=== PATIENT | female | born 1955 | race Caucasian/White ===

== ENCOUNTER → 2016-08-30 | Outpatient (CLI) | payer MEDICARE, OTHER ==
[2016-08-30 11:50] LABS: Basophils % (A) 1 %; CH 32.6; CHCM 32.1; Eosinophils # (A) 0.1 k/uL (0-0.7); Eosinophils % (A) 1 %; HDW 2.05; HGB 14.9 gm/dL (11.4-16.0); Luc # (Auto) 0.16; Luc % (Auto) 4; Lymphocytes # (A) 0.3 k/uL (1.0-4.8); Lymphocytes % (A) 7 %; MCH 32.3 pg (25.0-35.0); MCHC 31.6 g/dL (31.0-37.0); MCV 102.2 fL (80.0-100.0); Macrocytosis Slight; Mean Platelet Volume 7.7; Monocytes # (A) 0.5 k/uL (0-1.0); Monocytes % (A) 10 %; Neutrophils # (A) 3.4 k/uL (1.3-7.7); Neutrophils % (A) 77 %; WBC 4.4 k/uL (3.8-10.6); WBC (Perox) 4.45
[2016-08-30 12:27] LABS: ALT 41 U/L (9-52); AST 29 U/L (14-36); Alkaline Phosphatase 107 U/L (38-126); Anion Gap 9 mmol/L; Blood Urea Nitrogen 36 mg/dL (7-17); Calcium 9.5 mg/dL (8.4-10.2); Carbon Dioxide 31 mmol/L (22-30); Chloride 99 mmol/L (98-107); Glucose 91 mg/dL (74-99); Non-African American GFR(MDRD) >60 (>60 ml/min/1.73 sqM); Potassium 5.1 mmol/L (3.5-5.1); Sodium 139 mmol/L (137-145); Total Bilirubin 0.5 mg/dL (0.2-1.3)
[2016-08-30 13:11] LABS: Vitamin B12 729 pg/mL (239-931)
[2016-09-07 09:04] LABS: Mis test requested (Blood) Stratify JVC Ab
== END | disposition home or self-care (01) ==
LOC: LABWHC1 11:08
PROVIDERS: ATTEND Nurse Practitioner Acute Care
DX: E55.9 Vitamin D deficiency, unspecified (principal); G35 Multiple sclerosis
CPT/HCPCS: 36415; 80053; 82306; 82607; 84439; 84443; 84481; 85025

== ENCOUNTER → 2016-11-03 | Outpatient (CLI) | payer MEDICARE, OTHER ==
[~2016-11-03] MED LIST: DENOSUMAB 60 MG/ML 1 ML SYRINGE SQ ONE
[2016-11-03 14:18] VITALS: BP 117/75; PULSE 79; RESP 16; TEMP 98.4
== END ==
LOC: PROCWHC3 13:56
PROVIDERS: ATTEND Family Medicine
DX: M81.0 Age-related osteoporosis without current pathological fracture (principal)
CPT/HCPCS: 96372; J0897

== ENCOUNTER → 2017-01-06 | Outpatient (CLI) | payer MEDICARE, OTHER ==
[2017-01-06 10:08] LABS: Basophils % (A) 1 %; CH 31.6; Eosinophils # (A) 0.1 k/uL (0-0.7); Eosinophils % (A) 3 %; HCT 47.7 % (34.0-46.0); HDW 2.22; HGB 14.7 gm/dL (11.4-16.0); Hypochromasia Slight; Luc # (Auto) 0.08; Luc % (Auto) 2; Lymphocytes # (A) 0.6 k/uL (1.0-4.8); Lymphocytes % (A) 13 %; MCH 31.7 pg (25.0-35.0); MCHC 30.8 g/dL (31.0-37.0); MCV 102.8 fL (80.0-100.0); Macrocytosis Slight; Mean Platelet Volume 7.4; Monocytes # (A) 0.4 k/uL (0-1.0); Monocytes % (A) 9 %; Neutrophils # (A) 3.1 k/uL (1.3-7.7); Neutrophils % (A) 72 %; RBC 4.64 m/uL (3.80-5.40); RDW 13.8 % (11.5-15.5); WBC 4.2 k/uL (3.8-10.6); WBC (Perox) 4.14
[2017-01-06 10:15] LABS: ALT 34 U/L (9-52); AST 31 U/L (14-36); Alkaline Phosphatase 85 U/L (38-126); Anion Gap 8 mmol/L; Blood Urea Nitrogen 26 mg/dL (7-17); C Reactive Protein <5.0 mg/L (<10.0); Calcium 8.9 mg/dL (8.4-10.2); Carbon Dioxide 32 mmol/L (22-30); Chloride 100 mmol/L (98-107); Glucose 100 mg/dL (74-99); Non-African American GFR(MDRD) >60 (>60 ml/min/1.73 sqM); Potassium 5.1 mmol/L (3.5-5.1); Sodium 140 mmol/L (137-145); Total Bilirubin 0.4 mg/dL (0.2-1.3); Total Protein 6.7 g/dL (6.3-8.2)
[2017-01-06 13:32] LABS: Erythrocyte Sedimentation Rate 2 mm/hr (0-20)
[2017-01-06 16:46] LABS: ANA w/Reflex to Titer NEGATIVE (NEGATIVE)
== END | disposition home or self-care (01) ==
LOC: LABWHC1 09:21
PROVIDERS: ATTEND Nurse Practitioner Acute Care
DX: E55.9 Vitamin D deficiency, unspecified (principal); R41.3 Other amnesia; Z51.81 Encounter for therapeutic drug level monitoring
CPT/HCPCS: 36415; 80053; 82306; 82607; 84439; 84443; 84481; 85025; 85652; 86038; 86140

== ENCOUNTER → 2017-01-26 | Outpatient (CLI) | payer MEDICARE, OTHER ==
--- NOTE | 2017-01-26 09:04 | US ---
EXAMINATION TYPE: US abdomen complete DATE OF EXAM: 01/26/2017 COMPARISON: CT abdomen pelvis dated 12/11/2014 CLINICAL HISTORY: R10.13 Epigastric pain. Patient has MS and dementia, currently weighs 75lbs EXAM MEASUREMENTS: Liver Length: 13.2 cm Gallbladder Wall: 0.2 cm CBD: 1.0 cm Spleen: 6.7 cm Right Kidney: 9.1 x 3.9 x 2.9 cm Left Kidney: 8.4 x 4.3 x 5.4 cm Pancreas: wnl Liver: wnl Gallbladder: largest length was 11.6cm, possible hydropic with no other abnormalities noted Evidence for sonographic Casillas's sign: no CBD: dilated at 1.0cm with no visible obstruction seen Spleen: wnl Right Kidney: wnl Left Kidney: wnl Upper IVC: wnl Abd Aorta: wnl The liver is homogenous. The intrahepatic portion of the IVC and proximal abdominal aorta are within normal limits. There is no evidence of cholelithiasis. Common bile duct is unremarkable. The visu alized portions of the pancreas are homogenous. The spleen is unremarkable. Kidneys are symmetric a nd free of hydronephrosis. No renal lesions are seen. IMPRESSION: Hydropic gallbladder measuring 11.6 cm in length with enlargement of the common bile duct up to 1.0 cm. Although there is no pericholecystic fluid, gallbladder wall thickening, or cholelithi asis findings remain concerning for acalculous cholecystitis. HIDA scan could be performed if clinica l evaluation and serum laboratory values are equivocal. A [place] message has been communicated to Em Morales MD via the [facility] Critical Result system on 01/26/2017 9:00 AM, Message ID [id number].
== END | disposition home or self-care (01) ==
LOC: RADUSWWP 07:17
PROVIDERS: ATTEND Internal Medicine Gastroenterology
DX: K83.8 Other specified diseases of biliary tract (principal); K82.1 Hydrops of gallbladder
CPT/HCPCS: 76700

== ENCOUNTER → 2017-01-31 | Outpatient (CLI) | payer MEDICARE, OTHER ==
--- NOTE | 2017-01-31 12:00 | XR ---
EXAMINATION TYPE: XR Hip Complete LT DATE OF EXAM: 01/31/2017 COMPARISON: NONE HISTORY: Pain TECHNIQUE: 2 views submitted FINDINGS: There is no evidence of erosive change or acute fracture. Mild concentric narrowing of the joint space. Nonspherical morphology of the head of the femur. Be as sociated with femoral acetabular impingement. Sclerotic changes involving the proximal diaphysis can be associated with previous bone infarct. IMPRESSION: 1. Mild arthropathy correlate for femoral acetabular impingement.
--- NOTE | 2017-01-31 12:02 | XR ---
EXAM TYPE: LUMBAR SPINE X RAY SERIES COMPARISON: NONE HISTORY: Pain TECHNIQUE: 3 views are submitted. FINDINGS: Scoliotic curvature is seen with severe degenerative disc disease L3-4, L4-5 and L5-S1. Facet arthrop athy noted. Foraminal encroachment suspected. The pedicles are intact. The transverse processes are intact. There is no spondylolysis or spondylolisthesis. IMPRESSION: 1. Scoliosis with multilevel severe degenerative disc disease. Correlate with MRI as clinically warra nted.
== END | disposition home or self-care (01) ==
LOC: RADXRMAIN 11:39
PROVIDERS: ATTEND Family Medicine
DX: M51.36 Other intervertebral disc degeneration, lumbar region (principal); M41.9 Scoliosis, unspecified; M12.88 Other specific arthropathies, not elsewhere classified, other specified site; M25.552 Pain in left hip
CPT/HCPCS: 72100; 73502

== ENCOUNTER → 2017-04-04 | Outpatient (CLI) | payer MEDICARE, OTHER ==
[2017-04-04 13:23] LABS: Basophils % (A) 1 %; Eosinophils % (A) 1 %; HCT 44.3 % (34.0-46.0); HGB 13.9 gm/dL (11.4-16.0); Lymphocytes # (A) 0.3 k/uL (1.0-4.8); Lymphocytes % (A) 7 %; MCH 31.5 pg (25.0-35.0); MCHC 31.4 g/dL (31.0-37.0); MCV 100.1 fL (80.0-100.0); Mean Platelet Volume 7.4; Monocytes # (A) 0.4 k/uL (0-1.0); Monocytes % (A) 8 %; Neutrophils # (A) 3.5 k/uL (1.3-7.7); Neutrophils % (A) 81 %; Platelet Count 243 k/uL (150-450); RBC 4.42 m/uL (3.80-5.40); RDW 13.8 % (11.5-15.5); WBC 4.3 k/uL (3.8-10.6)
[2017-04-04 13:53] LABS: ALT 35 U/L (9-52); AST 23 U/L (14-36); Albumin 4.1 g/dL (3.5-5.0); Alkaline Phosphatase 56 U/L (38-126); Anion Gap 8 mmol/L; Blood Urea Nitrogen 15 mg/dL (7-17); Calcium 9.2 mg/dL (8.4-10.2); Carbon Dioxide 33 mmol/L (22-30); Chloride 99 mmol/L (98-107); Glucose 90 mg/dL (74-99); Potassium 4.5 mmol/L (3.5-5.1); Sodium 140 mmol/L (137-145); Total Bilirubin 0.3 mg/dL (0.2-1.3); Total Protein 6.5 g/dL (6.3-8.2)
[2017-04-04 14:10] LABS: T4, Free (Free Thyroxine) 1.23 ng/dL (0.78-2.19)
[2017-04-04 19:34] LABS: Vitamin D 25 Hydroxy 39.5 ng/mL (30.0-100.0)
== END | disposition home or self-care (01) ==
LOC: LABWHC1 12:31
PROVIDERS: ATTEND Nurse Practitioner Acute Care
DX: G35 Multiple sclerosis (principal); E55.9 Vitamin D deficiency, unspecified
CPT/HCPCS: 36415; 80053; 82306; 82607; 84207; 84439; 84443; 84481; 85025

== ENCOUNTER → 2017-04-09 | Outpatient (CLI) | payer MEDICARE, OTHER ==
--- NOTE | 2017-04-10 16:21 | MR ---
EXAMINATION TYPE: MR brain/cspine wo/w DATE OF EXAM: 04/09/2017 COMPARISON: December 29, 2015 HISTORY: Multiple sclerosis with dementia and cervicalgia. She also has neck pain and weakness in bot h arms and fingers. TECHNIQUE: Multiplanar, multisequence images of the brain and brainstem is performed without and with IV contras t, utilizing 4 mL intravenous Gadavist . FINDINGS: Diffusion weighted images demonstrate no evidence of a recent infarct or other diffusion ab normality. There is no intra or extra-axial fluid collections. There is diffuse amount of periventric ular and subcortical T2 and FLAIR signal hyperintensities which appear stable when compared to the pr ior examination. The reference lesion is identified on axial flair sequences image 20 of 30, and sagi ttal image 23 of 34, and measures 0.8 x 0.5 x 0.6 cm and is unchanged. There are again numerous abnor mal foci which are unchanged in number and which number between 50 and 70. No enhancing lesion is xenia ntified. No abnormal enhancement is identified. The ventricles and sulci are age-appropriate. The bra in volume is appropriate. There is no cerebellar ectopia. Multisequence, multiplanar images of the cervical spine were performed with and without intravenous c ontrast utilizing 4 mL of intravenous Gadavist. Craniocervical junction appears to be within normal limits. The cord is normal in course and caliber. There is no abnormal cord signal. Grade 1 retrolisthesis is again identified at the level C4 on C5, C5 on C6, and C6 on C7. There is multilevel loss of intervertebral disc space height which appears wo rse at the level of C4-5. No abnormal enhancement is identified. C2-3: There is mild posterior disc bulge which effaces the ventral thecal sac. No significant central canal stenosis or foraminal narrowing is identified. C3-4: Posterior disc bulge effaces the ventral thecal sac. There is also mild uncovertebral hypertrop hy. No central canal stenosis or neural foraminal narrowing is identified. C4-5: There is posterior disc bulge which is eccentric to the right. There is also endplate spurring and retrolisthesis this contributes to mild bilateral neural foraminal narrowing and moderate central canal stenosis. C5-6: Posterior endplate spurring as well as disc bulge and retrolisthesis contributes to mild centra l canal stenosis. There is also facet hypertrophy. This contributes to mild bilateral neural foramina l narrowing. C6-7: Posterior circumferential disc bulge effaces the ventral thecal sac and abuts the cord. There i s moderate central canal stenosis. There is also facet hypertrophy which contributes to moderate bila teral foraminal narrowing. Impression: Findings again consistent with multiple sclerosis. No enhancing focus or new lesion is identified. Fi ndings are considered stable. Moderate spondylosis is again noted in the cervical spine without cord signal abnormality.
== END | disposition home or self-care (01) ==
LOC: RADMRIMAIN 13:09
PROVIDERS: ATTEND Nurse Practitioner Acute Care
DX: M47.812 Spondylosis without myelopathy or radiculopathy, cervical region (principal); G35 Multiple sclerosis
CPT/HCPCS: 70553; 72156; A9581

== ENCOUNTER → 2017-05-09 | Outpatient (CLI) | payer MEDICARE, OTHER ==
[2017-05-09 15:19] LABS: Basophils # (A) 0.1 k/uL (0-0.2); Basophils % (A) 1 %; Eosinophils # (A) 0.1 k/uL (0-0.7); Eosinophils % (A) 1 %; HCT 42.6 % (34.0-46.0); HGB 13.1 gm/dL (11.4-16.0); Hypochromasia Moderate; Lymphocytes # (A) 1.5 k/uL (1.0-4.8); Lymphocytes % (A) 22 %; MCH 31.8 pg (25.0-35.0); MCHC 30.8 g/dL (31.0-37.0); MCV 103.1 fL (80.0-100.0); Macrocytosis Slight; Mean Platelet Volume 7.5; Monocytes # (A) 0.5 k/uL (0-1.0); Monocytes % (A) 7 %; Neutrophils # (A) 4.5 k/uL (1.3-7.7); Neutrophils % (A) 66 %; Platelet Count 253 k/uL (150-450); RBC 4.13 m/uL (3.80-5.40); RDW 13.4 % (11.5-15.5); WBC 6.8 k/uL (3.8-10.6)
== END | disposition home or self-care (01) ==
LOC: LABWHC1 15:00
PROVIDERS: ATTEND Nurse Practitioner Acute Care
DX: G35 Multiple sclerosis (principal)
CPT/HCPCS: 36415; 85025

== ENCOUNTER → 2017-05-09 | Outpatient (CLI) | payer MEDICARE, OTHER ==
[2017-05-09 14:54] VITALS: BP 106/72; PULSE 87; RESP 16; TEMP 98.4
== END | disposition home or self-care (01) ==
LOC: PROCWHC3 14:30
PROVIDERS: ATTEND Family Medicine
DX: M81.0 Age-related osteoporosis without current pathological fracture (principal)
CPT/HCPCS: 96372; J0897

== ENCOUNTER → 2017-07-22 | Outpatient (CLI) | payer MEDICARE, OTHER ==
--- NOTE | 2017-07-23 11:05 | XR ---
EXAMINATION TYPE: XR pelvis AP view DATE OF EXAM: 07/22/2017 CLINICAL HISTORY: pain TECHNIQUE: Single view the pelvis is submitted. FINDINGS: No evidence for fracture, dislocation or bony lesion. Joint spaces are well-preserved. S I joints appear symmetric. Degenerative changes lumbar spine. IMPRESSION: 1. No acute fracture or dislocation seen. ICD 10 NO FRACTURE, INITIAL EVALUATION
== END | disposition home or self-care (01) ==
LOC: RADXRMAIN 16:18
PROVIDERS: ATTEND Family Medicine
DX: M54.5 Low back pain (principal)
CPT/HCPCS: 72170

== ENCOUNTER 2017-07-27 16:09 | Inpatient (IN) | payer MEDICARE, OTHER ==
[2017-07-27] MEDS ORDERED: methylPREDNISolone SOD SUCCI 125 MG/2 ML VIAL IV STA (16:23)
[2017-07-27] MEDS ORDERED: IPRATROPIUM 0.5 MG/2.5 ML NEBU INHALATION STA (16:23)
[2017-07-27] MEDS ORDERED: ALBUTEROL NEBULIZED 2.5 MG/3 ML INHALATION STA (16:23)
[2017-07-27] MEDS ORDERED: SODIUM CHLORIDE 0.9% 1,000 ML IV STA (16:23)
[2017-07-27] MEDS ORDERED: AZITHROMYCIN 500 MG in SODIUM CHLORIDE 0.9% 250 ML IVPB STA (16:23)
[2017-07-27 17:22] LABS: Basophils % (A) 0 %; Eosinophils % (A) 0 %; HCT 41.5 % (34.0-46.0); HGB 14.4 gm/dL (11.4-16.0); Lymphocytes # (A) 1.2 k/uL (1.0-4.8); Lymphocytes % (A) 9 %; MCH 31.2 pg (25.0-35.0); MCHC 34.7 g/dL (31.0-37.0); Mean Platelet Volume 7.3; Monocytes # (A) 0.9 k/uL (0-1.0); Monocytes % (A) 6 %; Neutrophils # (A) 11.7 k/uL (1.3-7.7); Neutrophils % (A) 84 %; Platelet Count 365 k/uL (150-450); RBC 4.61 m/uL (3.80-5.40); RDW 13.8 % (11.5-15.5)
[2017-07-27 17:26] LABS: INR 1.1 (<1.2); Partial Thromboplastin Time 25.3 sec (22.0-30.0); Prothrombin Time 10.7 sec (9.0-12.0)
--- NOTE | 2017-07-27 17:26 | ED ---
General Adult HPI - General Chief complaint: Weakness Stated complaint: Weakness, Dehydrated Time Seen by Provider: 07/27/17 16:21 Source: patient, RN notes reviewed, old records reviewed Mode of arrival: wheelchair Limitations: no limitations - History of Present Illness Initial comments: This is a 61-year-old female the ER for evaluation today. Patient is a for cough congestion shortness of breath. History of severe COPD continues to smoke. No travel history no sick contacts patient denies chest pain mild abdominal pain. Patient does feel states she feels dehydrated and weak, no known sick contacts - Related Data Home Medications Medication Instructions Recorded Confirmed Hydrocodone/Acetaminophen 1 tab PO Q4H PRN 09/03/13 07/27/17 [Hydrocodone/Acetaminophen 10-325] Morphine Sulfate Ir [Msir] 30 mg PO BID 09/03/13 07/27/17 Pregabalin [Lyrica] 150 mg PO TID 09/03/13 07/27/17 Aspirin 325 mg PO DAILY 06/20/14 07/27/17 Cholecalciferol [Vitamin D3] 2,000 unit PO DAILY 01/27/15 07/27/17 Multivitamins, Thera [Multivitamin] 1 tab PO DAILY 01/27/15 07/27/17 Albuterol Inhaler [Ventolin 2 puff INHALATION RT-Q6H PRN 02/20/15 07/27/17 Inhaler] Azithromycin [Zithromax Z-pack] See Taper PO DIRECTED 07/27/17 07/27/17 Denosumab [Prolia] 60 mg SQ Q180D 07/27/17 07/27/17 Donepezil [Aricept] 10 mg PO DAILY 07/27/17 07/27/17 Fluticasone Nasal [place] [Flonase 2 spr EA NOSTRIL DAILY 07/27/17 07/27/17 Nasal [place]] Megestrol Acetate [Megace 625 mg PO DAILY 07/27/17 07/27/17 Extra-Strength] Modafinil [Provigil] 100 mg PO DAILY 07/27/17 07/27/17 Naproxen 500 mg PO BID PRN 07/27/17 07/27/17 Nicotine Polacrilex [Nicorette] 4 mg BC Q2H 07/27/17 07/27/17 Omeprazole [PriLOSEC] 20 mg PO BID 07/27/17 07/27/17 lamoTRIgine [LaMICtal] 25 mg PO HS 07/27/17 07/27/17 tiZANidine HCL 4 mg PO DAILY PRN 07/27/17 07/27/17 Allergies Allergy/AdvReac Type Severity Reaction Status Date / Time No Known Allergies Allergy Verified 07/27/17 16:43 Review of Systems ROS Statement: Those systems with pertinent positive or pertinent negative responses have been documented in the HPI. ROS Other: All systems not noted in ROS Statement are negative. Past Medical History Past Medical History: COPD, Fibromyalgia, GERD/Reflux, Memory Impairment, Osteoarthritis (OA) Additional Past Medical History / Comment(s): emphysema, irritable bowels, degenerative disc dx neck and back, MS, dememtia per pt, sm aneurysm in rt [facility] (dr. pimentel) History of Any Multi-Drug Resistant Organisms: None Reported Past Surgical History: Orthopedic Surgery, Tubal Ligation Additional Past Surgical History / Comment(s): right shoulder surgery. colonoscopy Past Anesthesia/Blood Transfusion Reactions: No Reported Reaction Past Psychological History: Anxiety, Depression Smoking Status: Current every day smoker - Past Family History Mother Family Medical History: Cancer Father Family Medical History: Cancer General Exam Limitations: no limitations General appearance: alert, anxious, in distress, cachectic Head exam: Present: atraumatic, normocephalic, normal inspection Eye exam: Present: normal appearance, PERRL, EOMI. Absent: scleral icterus, conjunctival injection, periorbital swelling ENT exam: Present: normal exam, mucous membranes moist Neck exam: Present: normal inspection. Absent: tenderness, meningismus, lymphadenopathy Respiratory exam: Present: respiratory distress, wheezes, accessory muscle use, decreased breath sounds, prolonged expiratory. Absent: rales, rhonchi, stridor Cardiovascular Exam: Present: regular rate, normal rhythm, tachycardia, normal heart sounds. Absent: systolic murmur, diastolic murmur, rubs, gallop, clicks GI/Abdominal exam: Present: soft, normal bowel sounds. Absent: distended, tenderness, guarding, rebound, rigid Extremities exam: Present: normal inspection, full ROM, normal capillary refill. Absent: tenderness, pedal edema, joint swelling, calf tenderness Back exam: Present: normal inspection Neurological exam: Present: alert, oriented X3, CN II-XII intact Psychiatric exam: Present: normal affect, normal mood Skin exam: Present: warm, dry, intact, normal color. Absent: rash Course Vital Signs 07/27/17 07/27/17 07/27/17 16:12 16:51 17:00 Temperature 99.3 F Pulse Rate 75 68 75 Respiratory 16 20 Rate Blood Pressure 135/69 136/78 O2 Sat by Pulse 89 L 98 Oximetry 07/27/17 07/27/17 07/27/17 17:06 17:26 17:52 Temperature Pulse Rate 70 82 86 Respiratory 20 Rate Blood Pressure 127/74 O2 Sat by Pulse 96 Oximetry - Reevaluation(s) Reevaluation #1: 07/27/17 17:45 No real improvement after prolonged breathing treatment EKG Findings - EKG Comments: EKG Findings:: EKG shows normal sinus rhythm rate of 66, IL 132, QRS 94, QTC 499 Medical Decision Making - Medical Decision Making 61 female the ER for evaluation of severe shortness of breath, positive severe COPD exacerbation, patient will be admitted for continued breathing treatments steroids IV resuscitation - Lab Data Result diagrams: 07/27/17 17:00 07/27/17 17:00 Lab Results 07/27/17 07/27/17 07/27/17 Range/Units 17:00 17:00 17:00 WBC 14.0 H (3.8-10.6) k/uL RBC 4.61 (3.80-5.40) m/uL Hgb 14.4 (11.4-16.0) gm/dL Hct 41.5 (34.0-46.0) % MCV 90.0 (80.0-100.0) fL MCH 31.2 (25.0-35.0) pg MCHC 34.7 (31.0-37.0) g/dL RDW 13.8 (11.5-15.5) % Plt Count 365 (150-450) k/uL Neutrophils % 84 % Lymphocytes % 9 % Monocytes % 6 % Eosinophils % 0 % Basophils % 0 % Neutrophils # 11.7 H (1.3-7.7) k/uL Lymphocytes # 1.2 (1.0-4.8) k/uL Monocytes # 0.9 (0-1.0) k/uL Eosinophils # 0.0 (0-0.7) k/uL Basophils # 0.0 (0-0.2) k/uL PT (9.0-12.0) sec INR (<1.2) APTT (22.0-30.0) sec Sodium 143 (137-145) mmol/L Potassium 3.0 L* (3.5-5.1) mmol/L Chloride 97 L (98-107) mmol/L Carbon Dioxide 31 H (22-30) mmol/L Anion Gap 15 mmol/L BUN 25 H (7-17) mg/dL Creatinine 0.48 L (0.52-1.04) mg/dL Est GFR (CKD-EPI)AfAm >90 (>60 ml/min/1.73 sqM) Est GFR (CKD-EPI)NonAf >90 (>60 ml/min/1.73 sqM) Glucose 95 (74-99) mg/dL Calcium 8.2 L (8.4-10.2) mg/dL Magnesium 2.8 H (1.6-2.3) mg/dL Total Bilirubin 0.7 (0.2-1.3) mg/dL AST 33 (14-36) U/L ALT 52 (9-52) U/L Alkaline Phosphatase 165 H (38-126) U/L Total Creatine Kinase 60 (30-135) U/L CK-MB (CK-2) 1.0 (0.0-2.4) ng/mL CK-MB (CK-2) Rel Index 1.7 Troponin I 0.018 (0.000-0.034) ng/mL NT-Pro-B Natriuret Pep pg/mL Total Protein 6.3 (6.3-8.2) g/dL Albumin 3.6 (3.5-5.0) g/dL 07/27/17 07/27/17 Range/Units 17:00 17:00 WBC (3.8-10.6) k/uL RBC (3.80-5.40) m/uL Hgb (11.4-16.0) gm/dL Hct (34.0-46.0) % MCV (80.0-100.0) fL MCH (25.0-35.0) pg MCHC (31.0-37.0) g/dL RDW (11.5-15.5) % Plt Count (150-450) k/uL Neutrophils % % Lymphocytes % % Monocytes % % Eosinophils % % Basophils % % Neutrophils # (1.3-7.7) k/uL Lymphocytes # (1.0-4.8) k/uL Monocytes # (0-1.0) k/uL Eosinophils # (0-0.7) k/uL Basophils # (0-0.2) k/uL PT 10.7 (9.0-12.0) sec INR 1.1 (<1.2) APTT 25.3 (22.0-30.0) sec Sodium (137-145) mmol/L Potassium (3.5-5.1) mmol/L Chloride (98-107) mmol/L Carbon Dioxide (22-30) mmol/L Anion Gap mmol/L BUN (7-17) mg/dL Creatinine (0.52-1.04) mg/dL Est GFR (CKD-EPI)AfAm (>60 ml/min/1.73 sqM) Est GFR (CKD-EPI)NonAf (>60 ml/min/1.73 sqM) Glucose (74-99) mg/dL Calcium (8.4-10.2) mg/dL Magnesium (1.6-2.3) mg/dL Total Bilirubin (0.2-1.3) mg/dL AST (14-36) U/L ALT (9-52) U/L Alkaline Phosphatase (38-126) U/L Total Creatine Kinase (30-135) U/L CK-MB (CK-2) (0.0-2.4) ng/mL CK-MB (CK-2) Rel Index Troponin I (0.000-0.034) ng/mL NT-Pro-B Natriuret Pep 669 pg/mL Total Protein (6.3-8.2) g/dL Albumin (3.5-5.0) g/dL Disposition Clinical Impression: Acute bronchitis with COPD, Hypoxia, Failure of outpatient treatment, Community acquired pneumonia Disposition: ADMITTED IP TO THIS HOSP Condition: Fair Is patient prescribed a controlled substance at d/c from ED?: No
[2017-07-27 17:32] LABS: ALT 52 U/L (9-52); AST 33 U/L (14-36); Albumin 3.6 g/dL (3.5-5.0); Alkaline Phosphatase 165 U/L (38-126); Anion Gap 15 mmol/L; Blood Urea Nitrogen 25 mg/dL (7-17); Calcium 8.2 mg/dL (8.4-10.2); Carbon Dioxide 31 mmol/L (22-30); Chloride 97 mmol/L (98-107); Glucose 95 mg/dL (74-99); Magnesium 2.8 mg/dL (1.6-2.3); Sodium 143 mmol/L (137-145); Total Bilirubin 0.7 mg/dL (0.2-1.3); Total Protein 6.3 g/dL (6.3-8.2)
[2017-07-27] MEDS ORDERED: POTASSIUM BICARBONATE/CIT AC 20 MEQ TABLET.EFF PO ONE (17:42)
[2017-07-27] MEDS: SODIUM CHLORIDE 0.9% 1,000 ML IV SCH (17:45)
[2017-07-27 17:50] LABS: Troponin I 0.018 ng/mL (0.000-0.034)
--- NOTE | 2017-07-27 18:32 | XR ---
EXAMINATION TYPE: XR chest 2V DATE OF EXAM: 07/27/2017 COMPARISON: 11/07/2014 HISTORY: Difficulty breathing TECHNIQUE: Frontal and lateral views of the chest are obtained. FINDINGS: There is some coarsening of interstitial pulmonary markings. There is probably some airspa ce infiltrate in the left lower lobe behind the heart. There is no heart failure. Heart size is fabiano l. Mediastinum appears normal. There are chest leads. There is some flattening of the diaphragm. IMPRESSION: COPD. there is new left lower lobe pneumonia compared to old exam. No heart failure.
[2017-07-27] MEDS ORDERED: cefTRIAXone IN SWFI 1,000 MG/10 ML SYRINGE IVP STA (18:47)
[2017-07-27] MEDS ORDERED: IPRATROPIUM-ALBUTEROL 3 ML NEB INHALATION SCH (20:00)
[2017-07-27] MEDS ORDERED: ONDANSETRON 4 MG/2 ML VIAL IVP PRN (20:30)
[2017-07-27] MEDS ORDERED: ONDANSETRON 4 MG/2 ML VIAL IVP STA (20:30)
[2017-07-27] MEDS ORDERED: RX INFO: IV CONTRAST WAS GIVEN 1 EACH MISC MISCELLANE PRN ×2 (20:31→21:27)
[2017-07-27] MEDS ORDERED: tiZANidine 4 MG TAB PO PRN (21:49)
[2017-07-27] MEDS ORDERED: HYDROcodone/APAP 10-325MG 1 EACH TAB PO PRN (21:49)
[2017-07-27] MEDS ORDERED: ACETAMINOPHEN TAB 325 MG TAB PO PRN (21:53)
[2017-07-27] MEDS ORDERED: NALOXONE 0.4 MG/ML 1 ML VIAL IV PRN (21:53)
[2017-07-27] MEDS ORDERED: CALCIUM CARBONATE 500 MG CHEWABLE PO PRN (21:53)
[2017-07-27] MEDS ORDERED: ALPRAZolam 0.25 MG TAB PO PRN (21:53)
[2017-07-27] MEDS ORDERED: MELATONIN 3 MG TABLET PO PRN (21:53)
[2017-07-27 23:10] LABS: Glucose,Whole Blood 132 mg/dL (75-99)
[2017-07-27] MEDS: BUDESONIDE 1 MG/2 ML NEBU INHALATION SCH (23:13)
[2017-07-27] MEDS: IPRATROPIUM-ALBUTEROL 3 ML NEB INHALATION SCH (23:13)
--- NOTE | 2017-07-27 23:16 | HP ---
HISTORY AND PHYSICAL DATE OF SERVICE: 07/27/2017 PRESENT COMPLAINT: Short of breath, cough. HISTORY OF PRESENTING COMPLAINT: Pleasant 61-year-old patient of Dr. Jonathan Natarajan. Chronic stable medical conditions include fibromyalgia, GERD, osteoarthritis and also has a small aneurysm in the brain that is being followed. The patient is a long-standing smoker. He is presenting with increasing shortness of breath, minimal cough. No sputum. No obvious fever. Tired, run down, not able to breathe, wheezing. The patient also about 2-3 days had some about 3-4 loose stools a day. The patient's appetite is fair, but the patient has been losing weight for some time. She cannot exactly quantify the same and she has presented to the ER. Chest x-ray in the ER revealed pneumonia and patient is put on antibiotics for the same. REVIEW OF SYSTEMS: CONSTITUTIONAL: Weight loss, tired. HEENT: None. RESPIRATORY: As above. CARDIOVASCULAR: None. GASTROINTESTINAL: Heartburn. GENITOURINARY: As above. MUSCULOSKELETAL: As above. DERMATOLOGICAL: None. HEMATOLOGIC: None. LYMPHATICS: None. PSYCHIATRY: None. NEUROLOGICAL: None. PAST MEDICAL HISTORY: COPD, fibromyalgia, GERD, osteoarthritis, DJD, aneurysm. PAST SURGICAL HISTORY: Orthopedic surgery, tubal ligation, right shoulder surgery, EGD and colonoscopy. PSYCH HISTORY: Anxiety, depression. SOCIAL HISTORY: Patient lives with her boyfriend, otherwise independent, smoking a pack a day for close to 43 years. No alcohol. FAMILY HISTORY: Liver and pancreatic cancer. HOME MEDICATIONS: 1. Tizanidine 4 mg daily p.r.n. 2. Vitamin D3 2000 units p.o. daily. 3. Z-Sameer. 4. Ventolin 2 puffs every 6 hours p.r.n. 5. Prilosec 20 mg b.i.d. 6. Prolia 60 mg subcu 180 days. 7. Nicorette 4 mg a.c. q.2 hours. 8. Naproxen 500 mg b.i.d. p.r.n. 9. Multivitamin 1 tablet p.o. daily. 10.Morphine sulfate immediate release 30 mg b.i.d. 11.Provigil 100 mg p.o. b.i.d. 12.Megace 625 p.o. daily. 13.Lamictal 25 mg q.h.s. 14.Lyrica 150 mg p.o. t.i.d. 15.[place] 10, 1 tab q.4h p.r.n. 16.Flonase 2 sprays each nostril daily. 17.Aricept 10 mg p.o. daily. 18.Aspirin 325 p.o. daily. ALLERGIES: None. EXAMINATION: Afebrile, pulse 80, respirations 20, blood pressure 120/73, pulse ox 93% on 2L. GENERAL APPEARANCE: Emaciated, loss of muscle. BMI is 14.4. Lying in bed, tired- appearing. EYES: Pupils equal. Conjunctivae pale. HEENT: External nose and ears normal. Oral cavity normal. NECK: JVD not raised. Mass not palpable. RESPIRATORY: Effort increased. LUNGS: Poor air entry. Prolonged expiration, wheezing. CARDIOVASCULAR: First and second heart sounds normal. No edema. ABDOMEN: Soft, nontender. Liver and spleen not palpable. LYMPHATIC: No lymph node palpable in neck or axillae. PSYCHIATRY: Alert and oriented x3. Mood and affect slightly anxious-appearing. NEUROLOGICAL: Pupils equal. Cranial nerves grossly intact. Power and sensation grossly intact. MUSCULOSKELETAL: Diffuse wasting of the muscles. EXTREMITIES: Patient has clubbing in both her fingers. INVESTIGATIONS: White count 14, hemoglobin 14.4. Potassium 3, BUN 25, creatinine 0.48. Chest x-ray reported to have infiltrate and hyperinflation. ASSESSMENT: 1. Left lower lobe pneumonia, suspect gram-negative organism, present on admission. 2. Acute severe advanced chronic obstructive pulmonary disease in a current smoker. 3. Chronic nicotine dependence. Patient is a cigarette smoker. 4. Severe protein-calorie malnutrition. The patient's BMI is down to 14.4 with diffuse wasting of muscles, bony prominences. 5. Suspicion for underlying malignancy because the patient's appetite is okay, she states, but still she has been losing weight. 6. Acute diarrhea for short duration of 3-4 days. We will check for Clostridium difficile and ova and parasites, given that community-acquired Clostridium difficile is becoming rather common now. 7. Chronic fibromyalgia. 8. Primary osteoarthritis, multiple joints, bilateral. 9. Cerebral aneurysm which is being followed chronically as an outpatient. PLAN: Patient is put on nebulized bronchodilators, IV steroids and also inhaled steroids. For malignancy workup, patient will get a CT scan of the chest, abdomen and pelvis with contrast. Will also send off stool for ova and parasites and C. diff. The patient is on a rather hefty dose of [place], will scale that back, and high dose of Lyrica. Will give DVT prophylaxis. We will also get a dietitian consultation and put the patient on Ensure. MMODL / IJN: [id number] /
[2017-07-27] MEDS: INSULIN ASPART 100 UNIT/ML 1 ML 10 ML VIAL SQ SCH (23:24)
[2017-07-27] MEDS: PANTOPRAZOLE 40 MG TABLET PO SCH (23:27)
[2017-07-27] MEDS: PREGABALIN 75 MG CAP PO SCH (23:28)
[2017-07-27] MEDS: lamoTRIgine 25 MG TAB PO SCH (23:28)
[2017-07-27] MEDS: MORPHINE SULFATE ER 30 MG TABLET PO SCH (23:28)
[2017-07-28] MEDS: methylPREDNISolone SOD SUCCI 125 MG/2 ML VIAL IV SCH ×3 (00:16→13:59)
[2017-07-28] MEDS: IPRATROPIUM-ALBUTEROL 3 ML NEB INHALATION SCH ×6 (03:51→23:36)
[2017-07-28] MEDS: SODIUM CHLORIDE 0.9% 1,000 ML IV SCH ×2 (04:54→20:03)
[2017-07-28 07:01] LABS: Glucose,Whole Blood 122 mg/dL (75-99)
[2017-07-28] MEDS: INSULIN ASPART 100 UNIT/ML 1 ML 10 ML VIAL SQ SCH ×3 (07:58→17:41)
[2017-07-28] MEDS: IOPAMIDOL-300 CONTRAST 30 ML VIAL (ORAL USE) PO PRN ×2 (07:58→09:11)
[2017-07-28] MEDS: BUDESONIDE 1 MG/2 ML NEBU INHALATION SCH ×2 (08:17→19:32)
[2017-07-28] MEDS: ENOXAPARIN 40 MG/0.4 ML SYRINGE SQ SCH (08:29)
[2017-07-28] MEDS: NICOTINE 21MG/24HR PATCH TRANSDERM SCH (08:30)
[2017-07-28] MEDS ORDERED: cefTRIAXone IN SWFI 1,000 MG/10 ML SYRINGE IVP SCH (09:00)
[2017-07-28] MEDS ORDERED: cefTRIAXone 1,000 MG in SODIUM CHLORIDE 0.9% 100 ML IVPB SCH (09:00)
[2017-07-28] MEDS: cefTRIAXone IN SWFI 1,000 MG/10 ML SYRINGE IVP SCH (09:11)
[2017-07-28] MEDS: MEGESTROL 400 MG/10 ML CUP PO SCH (10:09)
[2017-07-28] MEDS: MORPHINE SULFATE ER 30 MG TABLET PO SCH ×2 (10:10→21:00)
[2017-07-28] MEDS: AZITHROMYCIN 500 MG TAB PO SCH (10:10)
[2017-07-28] MEDS: PREGABALIN 75 MG CAP PO SCH ×3 (10:10→21:01)
[2017-07-28] MEDS: PANTOPRAZOLE 40 MG TABLET PO SCH ×2 (10:10→21:01)
[2017-07-28] MEDS: DONEPEZIL 10 MG TAB PO SCH (10:10)
[2017-07-28 11:14] LABS: Glucose,Whole Blood 186 mg/dL (75-99)
[2017-07-28 11:20] VITALS: BMI 14.4
--- NOTE | 2017-07-28 11:21 | CT ---
EXAMINATION TYPE: CT ChestAbdPelvis w con DATE OF EXAM: 07/28/2017 INDICATION: Weight loss COMPARISON: 12/16/2015 CT DLP: 390.20 mGycm CONTRAST: Performed with Oral Contrast and with IV Contrast, patient injected with 100 ml mL of Isovue 300. TECHNIQUE: Axial images at 5 mm thick sections. Reconstructed images in the coronal plane. Delayed images through the kidneys. FINDINGS: CT CHEST: Portion of the thyroid visualized is normal. Emphysematous changes are present. There appears to mild infiltrate in the left lower lobe which is n onspecific. Atelectasis and pneumonia could be considered. Other etiologies are not excluded. This ma y be somewhat focal in the posterior medial left lung base. Series 6 image 43 No enlarged mediastinal or hilar adenopathy is evident. The ascending aorta diameter at the level of the main pulmonary artery is 3.1 cm. The main pulmonary artery diameter at the bifurcation is 2.[address] ABDOMEN: Liver: Normal Spleen: Normal Pancreas: Somewhat atrophic Adrenal glands: The adrenal glands are normal. Gallbladder: Normal Kidneys: No masses are evident. No hydronephrosis is present. No cysts are present. Delayed images were obtained through the kidneys, which remain unremarkable. Aorta: Vascular calcification is within the aorta. Inferior vena cava: Normal. CT PELVIS: Loops of bowel within the abdomen and pelvis are normal. There are loops of bowel which are incom pletely distended or lack oral contrast limiting their evaluation. Appendix: Not visualized. What may be the appendix would be air-filled and nonsuspicious. Urinary bladder: Decompressed with limited evaluation Genitourinary structures: Uterus appears normal. Adnexal regions appear clear. Osseous structures: No suspicious lytic or sclerotic lesions. IMPRESSIONS: 1. Emphysematous changes within the lungs. 2. Mild scattered areas of pneumonitis within the left lower lobe. Correlate for atelectasis and pneu monia. 3. Nonspecific abdomen and pelvis. The paucity of mesenteric fat limits the evaluation.
[2017-07-28] MEDS: MODAFINIL 100 MG TAB PO SCH (13:59)
[2017-07-28] MEDS ORDERED: POTASSIUM CHLORIDE ER 20 MEQ TAB.ER PO STA (16:25)
[2017-07-28 16:55] LABS: Glucose,Whole Blood 188 mg/dL (75-99)
--- NOTE | 2017-07-28 17:17 | PN ---
PROGRESS NOTE DATE OF SERVICE: 07/28/2017 PRESENTING COMPLAINT: Short of breath. INTERVAL HISTORY: This patient presented with advanced COPD, pneumonia. Because patient was losing weight, I did get a CT of the chest, abdomen and pelvis, which did not show any obvious malignancy. Patient is tired. Patient's 2 daughters are at the bedside. The patient did tolerate some diet. Also was seen by the dietitian. REVIEW OF SYSTEMS: Done for constitutional, cardiovascular, GI, pulmonary; relevant findings as above. CURRENT MEDICATIONS: Reviewed. They include: 1. DuoNeb. 2. Antibiotics. 3. IV Solu-Medrol. 4. Inhaled steroids. PHYSICAL EXAMINATION: Temperature 98.5, pulse 63, respiration 18, blood pressure 85/50, pulse ox 91% on room air. GENERAL APPEARANCE: Sitting up, tired-appearing. EYES: Pupils equal. Conjunctivae pale. HEENT: External appearance of nose and ears normal. Oral cavity normal. NECK: JVD not raised. Mass not palpable. RESPIRATORY: Effort increased. LUNGS: Decreased breath sounds. Prolonged expiration. CARDIOVASCULAR: First and second sounds normal. No edema. ABDOMEN: Soft, nontender. Liver and spleen not palpable. PSYCHIATRY: Alert and oriented x3. Mood and affect slightly anxious-appearing. INVESTIGATIONS: Blood work pending from today. ASSESSMENT: 1. Left lower lobe pneumonia. Suspect Gram-negative organism, present on admission. 2. Acute severe chronic obstructive pulmonary disease exacerbation in a current smoker. 3. Chronic nicotine dependence; patient is an active cigarette smoker. 4. Severe protein-calorie malnutrition with a body mass index down to 14.4. 5. Acute diarrhea, non-infectious. 6. Chronic fibromyalgia. 7. Primary osteoarthritis in multiple joints bilaterally. 8. Cerebral aneurysm being followed as an outpatient. PLAN: Continue current breathing treatment plan. Care was discussed with the patient and family at the bedside. CT has come back negative. Prognosis is guarded. MMODL / IJN: [id number] /
[2017-07-28 20:00] LABS: Glucose,Whole Blood 88 mg/dL (75-99)
[2017-07-28] MEDS: lamoTRIgine 25 MG TAB PO SCH (21:01)
[2017-07-29] MEDS: SODIUM CHLORIDE 0.9% 1,000 ML IV SCH ×3 (01:12→21:30)
[2017-07-29] MEDS: methylPREDNISolone SOD SUCCI 40 MG/ML 1 ML VIAL IV SCH ×3 (01:14→15:26)
[2017-07-29] MEDS: IPRATROPIUM-ALBUTEROL 3 ML NEB INHALATION SCH ×6 (04:12→23:30)
[2017-07-29 07:27] LABS: Glucose,Whole Blood 128 mg/dL (75-99)
[2017-07-29] MEDS: INSULIN ASPART 100 UNIT/ML 1 ML 10 ML VIAL SQ SCH (07:38)
[2017-07-29 07:41] LABS: Anion Gap 11 mmol/L; Blood Urea Nitrogen 18 mg/dL (7-17); Calcium 8.2 mg/dL (8.4-10.2); Carbon Dioxide 30 mmol/L (22-30); Chloride 106 mmol/L (98-107); Glucose 123 mg/dL (74-99); Sodium 147 mmol/L (137-145)
[2017-07-29] MEDS: BUDESONIDE 1 MG/2 ML NEBU INHALATION SCH ×2 (08:34→19:14)
[2017-07-29] MEDS: NICOTINE 21MG/24HR PATCH TRANSDERM SCH (09:08)
[2017-07-29] MEDS: MEGESTROL 400 MG/10 ML CUP PO SCH (09:08)
[2017-07-29] MEDS: MORPHINE SULFATE ER 30 MG TABLET PO SCH ×2 (09:08→21:30)
[2017-07-29] MEDS: AZITHROMYCIN 500 MG TAB PO SCH (09:09)
[2017-07-29] MEDS: ENOXAPARIN 40 MG/0.4 ML SYRINGE SQ SCH (09:09)
[2017-07-29] MEDS: DONEPEZIL 10 MG TAB PO SCH (09:09)
[2017-07-29] MEDS: PANTOPRAZOLE 40 MG TABLET PO SCH ×2 (09:10→21:30)
[2017-07-29] MEDS: PREGABALIN 75 MG CAP PO SCH ×3 (09:15→21:29)
[2017-07-29] MEDS: cefTRIAXone IN SWFI 1,000 MG/10 ML SYRINGE IVP SCH (09:15)
[2017-07-29] MEDS: MODAFINIL 100 MG TAB PO SCH (09:15)
[2017-07-29 10:59] LABS: Glucose,Whole Blood 138 mg/dL (75-99)
[2017-07-29] MEDS ORDERED: LOPERAMIDE 2 MG CAP PO PRN (11:06)
[2017-07-29] MEDS: lamoTRIgine 25 MG TAB PO SCH (21:30)
--- NOTE | 2017-07-29 22:36 | PN ---
PROGRESS NOTE DATE OF SERVICE: 07/29/2017 PRESENTING COMPLAINT: Short of breath. INTERVAL HISTORY: Patient was admitted with COPD exacerbation, pneumonia. Patient is slowly getting better but still short of breath. Minimal cough. Does wheeze. Tolerating a diet. REVIEW OF SYSTEMS: Done for constitutional, cardiovascular, GI, pulmonary; relevant findings as above. CURRENT MEDICATIONS: Reviewed. They include: 1. Zithromax. 2. Ceftriaxone. 3. DuoNeb. 4. IV Solu-Medrol. PHYSICAL EXAMINATION: Temperature 97.9, pulse 94, respiration 18, blood pressure 113/69, pulse ox 97% on room air. GENERAL APPEARANCE: Sitting up. Tired-appearing. EYES: Pupils equal. Conjunctivae pale. HEENT: External appearance of nose and ears normal. Oral cavity normal. NECK: JVD not raised. Mass not palpable. RESPIRATORY: Effort increased. LUNGS: Diminished breath sounds. Prolonged expiration. CARDIOVASCULAR: First and second sounds normal. No edema. ABDOMEN: Soft, nontender. Liver and spleen not palpable. PSYCHIATRY: Alert and oriented x3. Mood and affect normal. INVESTIGATIONS: Sodium 147, potassium 4, BUN 18, creatinine 0.48. Stool studies are negative. ASSESSMENT: 1. Left lower lobe pneumonia. Suspect Gram-negative organism, present on admission. 2. Acute severe chronic obstructive pulmonary disease exacerbation in a current smoker, slow to respond. 3. Chronic nicotine dependence, present in an active cigarette smoker. 4. Severe protein-calorie malnutrition with body mass index down to 14.4. 5. Acute diarrhea, not infectious. 6. Chronic fibromyalgia. 7. Primary osteoarthritis in multiple joints, bilateral. 8. Cerebral aneurysm being followed as an outpatient. PLAN: Continue with medication and treatment plan. Patient definitely has advanced lung disease. Did discuss with the patient. Pulmonary consultation is being sought. Patient encouraged to be out of bed. MMODL / IJN: [id number] /
[2017-07-30] MEDS: methylPREDNISolone SOD SUCCI 40 MG/ML 1 ML VIAL IV SCH ×4 (00:41→23:48)
[2017-07-30] MEDS: SODIUM CHLORIDE 0.9% 1,000 ML IV SCH ×2 (00:42→21:54)
[2017-07-30 00:50] LABS: Glucose,Whole Blood 134 mg/dL (75-99)
[2017-07-30] MEDS: IPRATROPIUM-ALBUTEROL 3 ML NEB INHALATION SCH ×7 (02:58→23:21)
[2017-07-30 07:56] LABS: Anion Gap 12 mmol/L; Blood Urea Nitrogen 16 mg/dL (7-17); Calcium 8.3 mg/dL (8.4-10.2); Carbon Dioxide 31 mmol/L (22-30); Chloride 99 mmol/L (98-107); Glucose 105 mg/dL (74-99); Potassium 3.5 mmol/L (3.5-5.1); Sodium 142 mmol/L (137-145)
[2017-07-30] MEDS: BUDESONIDE 1 MG/2 ML NEBU INHALATION SCH ×2 (08:30→19:00)
[2017-07-30] MEDS: MEGESTROL 400 MG/10 ML CUP PO SCH ×2 (08:38→08:47)
[2017-07-30] MEDS: PREGABALIN 75 MG CAP PO SCH ×3 (08:39→21:55)
[2017-07-30] MEDS: MORPHINE SULFATE ER 30 MG TABLET PO SCH ×2 (08:39→21:55)
[2017-07-30] MEDS: NICOTINE 21MG/24HR PATCH TRANSDERM SCH (08:39)
[2017-07-30] MEDS: ENOXAPARIN 40 MG/0.4 ML SYRINGE SQ SCH (08:40)
[2017-07-30] MEDS: DONEPEZIL 10 MG TAB PO SCH (08:40)
[2017-07-30] MEDS: PANTOPRAZOLE 40 MG TABLET PO SCH ×2 (08:40→21:55)
[2017-07-30] MEDS: AZITHROMYCIN 500 MG TAB PO SCH (08:40)
[2017-07-30] MEDS: cefTRIAXone IN SWFI 1,000 MG/10 ML SYRINGE IVP SCH (08:40)
[2017-07-30] MEDS: MODAFINIL 100 MG TAB PO SCH (08:42)
--- NOTE | 2017-07-30 15:37 | P.CNPUL ---
History of Present Illness Consult date: 07/30/17 Reason for consult: COPD, pneumonia, pulmonary hypertension Chief complaint: Cough shortness of breath for 7-10 days History of present illness: 61-year-old female with extensive history of smoking and nicotine use she used to smoke more than pack a day for almost 40-45 years however lately has cut down to less than pack a day, for the last couple of weeks patient has not been feeling well started with upper respiratory infection with increase nasal stuffiness congestion and postnasal drip symptoms have been progressive was seen by primary service due to progressive respiratory symptoms cough and increasing shortness of breath advised to be admitted into the hospital, preliminary chest x-ray and CAT scan of chest suggestive of the left lower lobe pneumonia patient is being treated with antibiotics, steroids and bronchodilators care plan discussed with the patient and family present at bedside at length patient has been consult about smoking cessation. Patient denies any loss of consciousness) denies any hemoptysis denies any bowel or bladder dysfunction , On arrival patient noted to have a low-grade fever along with the significantly low oxygen saturation of only 89% at room air Review of Systems All systems: negative Past Medical History Past Medical History: COPD, Fibromyalgia, GERD/Reflux, Memory Impairment, Osteoarthritis (OA) Additional Past Medical History / Comment(s): emphysema, irritable bowels, degenerative disc dx neck and back, MS, dememtia per pt, sm aneurysm in rt gnosticist (dr. pimentel) History of Any Multi-Drug Resistant Organisms: None Reported Past Surgical History: Orthopedic Surgery, Tubal Ligation Additional Past Surgical History / Comment(s): right shoulder surgery. colonoscopy/polys benign, egd w/bx neg Past Anesthesia/Blood Transfusion Reactions: No Reported Reaction Smoking Status: Current every day smoker - Past Family History Mother Family Medical History: Cancer Additional Family Medical History / Comment(s): liver/pancreastic cancer Father Family Medical History: Cancer Additional Family Medical History / Comment(s): lung cancer Medications and Allergies Home Medications Medication Instructions Recorded Confirmed Type Hydrocodone/Acetaminophen 1 tab PO Q4H PRN 09/03/13 07/27/17 History [Hydrocodone/Acetaminophen 10-325] Morphine Sulfate Ir [Msir] 30 mg PO BID 09/03/13 07/27/17 History Pregabalin [Lyrica] 150 mg PO TID 09/03/13 07/27/17 History Aspirin 325 mg PO DAILY 06/20/14 07/27/17 History Cholecalciferol [Vitamin D3] 2,000 unit PO DAILY 01/27/15 07/27/17 History Multivitamins, Thera [Multivitamin] 1 tab PO DAILY 01/27/15 07/27/17 History Albuterol Inhaler [Ventolin 2 puff INHALATION RT-Q6H PRN 02/20/15 07/27/17 History Inhaler] Azithromycin [Zithromax Z-pack] See Taper PO DIRECTED 07/27/17 07/27/17 History Denosumab [Prolia] 60 mg SQ Q180D 07/27/17 07/27/17 History Donepezil [Aricept] 10 mg PO DAILY 07/27/17 07/27/17 History Fluticasone Nasal [place] [Flonase 2 spr EA NOSTRIL DAILY 07/27/17 07/27/17 History Nasal [place]] Megestrol Acetate [Megace 625 mg PO DAILY 07/27/17 07/27/17 History Extra-Strength] Modafinil [Provigil] 100 mg PO DAILY 07/27/17 07/27/17 History Naproxen 500 mg PO BID PRN 07/27/17 07/27/17 History Nicotine Polacrilex [Nicorette] 4 mg BC Q2H 07/27/17 07/27/17 History Omeprazole [PriLOSEC] 20 mg PO BID 07/27/17 07/27/17 History lamoTRIgine [LaMICtal] 25 mg PO HS 07/27/17 07/27/17 History tiZANidine HCL 4 mg PO DAILY PRN 07/27/17 07/27/17 History Allergies Allergy/AdvReac Type Severity Reaction Status Date / Time No Known Allergies Allergy Verified 07/27/17 16:43 Physical Exam Vitals: Vital Signs Temp Pulse Pulse Resp BP Pulse Ox 07/30/17 15:20 92 16 97 07/30/17 14:06 84 07/30/17 13:55 84 07/30/17 08:41 88 07/30/17 08:30 84 07/30/17 05:16 98.6 F 83 16 114/68 93 L 07/29/17 23:44 84 07/29/17 23:32 84 98 07/29/17 21:35 98.2 F 90 16 122/82 92 L 07/29/17 19:32 96 07/29/17 19:15 94 07/29/17 16:07 94 07/29/17 16:00 94 18 07/29/17 15:58 94 Intake and Output 07/30/17 07/30/17 07/30/17 06:59 14:59 22:59 Intake Total 900 800 Balance 900 800 Intake: Intake, IV Titration 900 800 Amount Sodium Chloride 0.9% 1, 900 800 000 ml @ 100 mls/hr IV . Q10H [facility] Rx#:[id number] Other: Voiding Method Toilet # Voids 1 - Constitutional General appearance: disheveled, no acute distress, thin - EENT Eyes: EOMI, PERRLA, poor dentition, normal appearance ENT: normal oropharynx Ears: bilateral: normal - Neck Carotids: bilateral: upstroke normal, bruit absent Thyroid: bilateral: normal size - Respiratory Respiratory: left: rales, rhonchi, wheezing, bilateral: diminished, prolonged expiration - Cardiovascular Rhythm: regular Heart sounds: normal: S1, S2 - Gastrointestinal General gastrointestinal: decreased bowel sounds, soft - Integumentary Integumentary: normal, normal turgor - Neurologic Normal neuro exam Neurologic: CNII-XII intact Results - Laboratory Findings CBC and BMP: 07/27/17 17:00 07/30/17 06:43 PT/INR, D-dimer PT 10.7 sec (9.0-12.0) 07/27/17 17:00 INR 1.1 (<1.2) 07/27/17 17:00 Abnormal lab findings: Abnormal Labs 07/27/17 07/27/17 07/27/17 17:00 17:00 23:08 WBC 14.0 H Neutrophils # 11.7 H Sodium Potassium 3.0 L* Chloride 97 L Carbon Dioxide 31 H BUN 25 H Creatinine 0.48 L Glucose POC Glucose (mg/dL) 132 H Calcium 8.2 L Magnesium 2.8 H Alkaline Phosphatase 165 H 07/28/17 07/28/17 07/28/17 07:00 11:12 16:54 WBC Neutrophils # Sodium Potassium Chloride Carbon Dioxide BUN Creatinine Glucose POC Glucose (mg/dL) 122 H 186 H 188 H Calcium Magnesium Alkaline Phosphatase 0507/29/17 07/29/17 06:57 07:15 10:57 WBC Neutrophils # Sodium 147 H Potassium Chloride Carbon Dioxide BUN 18 H Creatinine 0.48 L Glucose 123 H POC Glucose (mg/dL) 128 H 138 H Calcium 8.2 L Magnesium Alkaline Phosphatase 07/30/17 07/30/17 00:48 06:43 WBC Neutrophils # Sodium Potassium Chloride Carbon Dioxide 31 H BUN Creatinine 0.49 L Glucose 105 H POC Glucose (mg/dL) 134 H Calcium 8.3 L Magnesium Alkaline Phosphatase - Diagnostic Findings Chest x-ray: report reviewed, image reviewed CT scan - chest: report reviewed, image reviewed (Extensive pulmonary disease suggestive emphysema and COPD were noted along with left lower lobe infiltrate likely community-acquired pneumonia) Assessment and Plan Assessment: Acute hypoxic respirator failure Acute left lower lobe likely community-acquired pneumonia with leukocytosis likely Sirs Elevated CO2 baseline hypercapnia cannot be excluded Severe COPD emphysema Pulmonary hypertension likely related to end-stage lung disease and severe COPD Electrolyte imbalance with severe hypokalemia improved significantly Plan: Gentle IV hydration Supplemental oxygen Breathing treatment with bronchodilators IV steroids Broad-spectrum antibiotics Education and counseling about smoking cessation and care of and his stage lung disease COPD emphysema Further evaluation and intervention and treatment for her outpatient basis Hopefully next 24-48 hours IV steroids antibiotics can be switched to oral Time with Patient: Greater than 30
[2017-07-30] MEDS: lamoTRIgine 25 MG TAB PO SCH (21:55)
--- NOTE | 2017-07-30 22:22 | PN ---
PROGRESS NOTE DATE OF SERVICE: 07/30/2017 PRESENTING COMPLAINT: Shortness of breath. INTERVAL HISTORY: Patient admitted with COPD exacerbation, pneumonia. The patient slowly continues to get better, up to the bathroom. Dizziness getting better. Oral intake is improving. REVIEW OF SYSTEMS: Done for constitutional, cardiovascular, GI, pulmonary; relevant findings as above. CURRENT MEDICATIONS: Reviewed that include: 1. Zithromax. 2. IV ceftriaxone. 3. IV Solu-Medrol. 4. Bronchodilators. EXAMINATION: Temperature 98, pulse 100, respirations 18, blood pressure 133/63, pulse ox 92% on room air. GENERAL APPEARANCE: Sitting up, looking more perky. EYES: Pupils equal. Conjunctivae pale. HEENT: External appearance of nose and ears normal. Oral cavity normal. NECK: JVD not raised. Mass not palpable. RESPIRATORY: Effort increased. LUNGS: Decreased breath sounds. Prolonged expiration. CARDIOVASCULAR: First and second heart sounds normal. No edema. ABDOMEN: Soft, nontender. Liver, spleen not palpable. PSYCHIATRY: Alert and oriented x3. Mood and affect normal. INVESTIGATIONS: BUN 16, creatinine 0.49. ASSESSMENT: 1. Left lower lobe pneumonia, suspect gram-negative organism, present on admission, improving. 2. Acute severe chronic obstructive pulmonary disease exacerbation in a current smoker. 3. Chronic nicotine dependence. Patient is an active cigarette smoker. 4. Severe protein-calorie malnutrition with a BMI of 14.4. 5. Acute diarrhea, not infectious, possibly antibiotic-associated. 6. Chronic fibromyalgia. 7. Primary osteoarthritis, multiple joints bilaterally. 8. Cerebral aneurysm being followed up as an outpatient. PLAN: Continue medication and treatment plan. Discontinue IV fluids. MMODL / IJN: [id number] /
[2017-07-30] MEDS ORDERED: IPRATROPIUM-ALBUTEROL 3 ML NEB INHALATION PRN (23:22)
[2017-07-31 07:28] LABS: Anion Gap 8 mmol/L; Blood Urea Nitrogen 21 mg/dL (7-17); Calcium 8.6 mg/dL (8.4-10.2); Carbon Dioxide 36 mmol/L (22-30); Chloride 95 mmol/L (98-107); Glucose 93 mg/dL (74-99); Potassium 4.5 mmol/L (3.5-5.1); Sodium 139 mmol/L (137-145)
[2017-07-31] MEDS: PREGABALIN 75 MG CAP PO SCH ×3 (07:33→21:32)
[2017-07-31] MEDS: NICOTINE 21MG/24HR PATCH TRANSDERM SCH (07:34)
[2017-07-31] MEDS: ENOXAPARIN 40 MG/0.4 ML SYRINGE SQ SCH (07:34)
[2017-07-31] MEDS: cefTRIAXone IN SWFI 1,000 MG/10 ML SYRINGE IVP SCH (07:35)
[2017-07-31] MEDS: AZITHROMYCIN 500 MG TAB PO SCH (07:35)
[2017-07-31] MEDS: PANTOPRAZOLE 40 MG TABLET PO SCH ×2 (07:35→21:32)
[2017-07-31] MEDS: methylPREDNISolone SOD SUCCI 40 MG/ML 1 ML VIAL IV SCH ×2 (07:35→17:02)
[2017-07-31] MEDS: DONEPEZIL 10 MG TAB PO SCH (07:35)
[2017-07-31] MEDS: MEGESTROL 400 MG/10 ML CUP PO SCH (07:36)
[2017-07-31] MEDS: MORPHINE SULFATE ER 30 MG TABLET PO SCH ×2 (07:36→21:32)
[2017-07-31] MEDS: MODAFINIL 100 MG TAB PO SCH (07:38)
[2017-07-31] MEDS: BUDESONIDE 1 MG/2 ML NEBU INHALATION SCH ×2 (08:34→20:50)
[2017-07-31] MEDS: IPRATROPIUM-ALBUTEROL 3 ML NEB INHALATION SCH ×4 (08:36→20:50)
--- NOTE | 2017-07-31 09:56 | P.PN ---
Subjective Progress Note Date: 07/31/17 Principal diagnosis: Acute COPD exacerbation, purulent tracheobronchitis, acute on chronic hypoxic respiratory failure related to severe COPD, pulmonary hypertension likely related to cor pulmonale, cachexia of severe COPD and end-stage lung disease, severe degree of protein calorie malnourishment, chronic fibromyalgia, history of cerebral aneurysm being monitored on outpatient setting 07/31/2017, patient seen eval examined during the rounds clinically patient is slightly better still feel congested able to get him and move around cough and congestion is present cuff is mostly nonproductive she get short of breath on activity and exertion however her oxygen saturation has improved significantly with therapy 61-year-old female with extensive history of smoking and nicotine use she used to smoke more than pack a day for almost 40-45 years however lately has cut down to less than pack a day, for the last couple of weeks patient has not been feeling well started with upper respiratory infection with increase nasal stuffiness congestion and postnasal drip symptoms have been progressive was seen by primary service due to progressive respiratory symptoms cough and increasing shortness of breath advised to be admitted into the hospital, preliminary chest x-ray and CAT scan of chest suggestive of the left lower lobe pneumonia patient is being treated with antibiotics, steroids and bronchodilators care plan discussed with the patient and family present at bedside at length patient has been consult about smoking cessation. Patient denies any loss of consciousness) denies any hemoptysis denies any bowel or bladder dysfunction , On arrival patient noted to have a low-grade fever along with the significantly low oxygen saturation of only 89% at room air Objective - Vital Signs Vital signs: Vital Signs Temp 98 F 07/31/17 06:00 Pulse 96 07/31/17 08:48 Resp 16 07/31/17 06:00 BP 121/67 07/31/17 06:00 Pulse Ox 95 07/31/17 08:37 Intake & Output 07/30/17 07/31/17 07/31/17 18:59 06:59 18:59 Intake Total 800 610 Balance 800 610 Intake: Intake, IV Titration 800 70 Amount Sodium Chloride 0.9% 1, 800 70 000 ml @ 100 mls/hr IV . Q10H [facility] Rx#:[id number] Oral 540 Other: Voiding Method Toilet Toilet Toilet # Voids 2 - Exam - Constitutional General appearance: disheveled, no acute distress, thin - EENT Eyes: EOMI, PERRLA, poor dentition, normal appearance ENT: normal oropharynx Ears: bilateral: normal - Neck Carotids: bilateral: upstroke normal, bruit absent Thyroid: bilateral: normal size - Respiratory Respiratory: left: rales, rhonchi, wheezing, bilateral: diminished, prolonged expiration - Cardiovascular Rhythm: regular Heart sounds: normal: S1, S2 - Gastrointestinal General gastrointestinal: decreased bowel sounds, soft - Integumentary Integumentary: normal, normal turgor - Neurologic Normal neuro exam Neurologic: CNII-XII intact - Labs CBC & Chem 7: 07/27/17 17:00 07/31/17 06:27 Labs: Abnormal Lab Results - Last 24 Hours (Table) 07/31/17 Range/Units 06:27 Chloride 95 L (98-107) mmol/L Carbon Dioxide 36 H (22-30) mmol/L BUN 21 H (7-17) mg/dL Microbiology - Last 24 Hours (Table) 07/27/17 17:00 Blood Culture - Preliminary Blood No Growth after 72 hours Assessment and Plan Assessment: Acute hypoxic respirator failure Acute left lower lobe likely community-acquired pneumonia with leukocytosis likely Sirs Elevated CO2, chronic baseline hypercapnia cannot be excluded Severe COPD emphysema Pulmonary hypertension likely related to end-stage lung disease and severe COPD Electrolyte imbalance with severe hypokalemia improved significantly Cerebral aneurysm Chronic severe fibromyalgia Cachexia, severe degree of protein calorie malnourishment may very well be related to end-stage lung disease Plan: Gentle IV hydration Supplemental oxygen Breathing treatment with bronchodilators IV steroids Broad-spectrum antibiotics Education and counseling about smoking cessation and care of and his stage lung disease COPD emphysema Further evaluation and intervention and treatment for her outpatient basis Hopefully next 24-48 hours IV steroids antibiotics can be switched to oral If remains stable possible discharge in next 24 hours with follow-up in outpatient setting Time with Patient: Greater than 30
[2017-07-31] MEDS: predniSONE 20 MG TAB PO SCH (16:56)
[2017-07-31] MEDS: lamoTRIgine 25 MG TAB PO SCH (21:32)
[2017-07-31 21:39] VITALS: RESP 16
--- NOTE | 2017-07-31 21:59 | PN ---
PROGRESS NOTE DATE OF SERVICE: 07/31/17 PRESENTING COMPLAINT: Short of breath. INTERVAL HISTORY: The patient admitted with COPD exacerbation and pneumonia. Continues to do better, up and about, tolerating a diet. Overall feeling better. REVIEW OF SYSTEMS: Done for constitutional, cardiovascular, GI, pulmonary and relevant findings as above. CURRENT MEDICATIONS: Include IV ceftriaxone, Zithromax, and IV Solu-Medrol. PHYSICAL EXAMINATION: Temperature 97.6, pulse 95, respiratory 18, blood pressure 109/70, pulse ox 94% on room air. General appearance: Sitting up, more comfortable. Eyes: Pupils equal. Conjunctivae normal. HEENT: External appearance of nose and ears normal. Oral cavity normal. Neck JVD not raised. Mass not palpable. Respiratory effort normal. Lungs decreased breath sounds. Cardiovascular first and second sounds normal. No edema. ABDOMEN: Soft, nontender. Liver and spleen not palpable. Psychiatry: Alert and oriented x3. Mood and affect normal. INVESTIGATIONS: Potassium 4.5. ASSESSMENT: 1. Left lower lobe pneumonia, suspect gram-negative organism, present on admission. Continues to improve. 2. Acute severe chronic obstructive pulmonary disease exacerbation improving. 3. Chronic nicotine dependence, patient an active cigarette smoker. 4. Severe protein calorie malnutrition BMI 14.4. 5. Acute diarrhea, not infectious, possibly antibiotic associated. 6. Chronic fibromyalgia. 7. Primary osteoarthritis, multiple joints bilateral. 8. being followed as an outpatient. PLAN: Patient overall doing better. We will stop patient's IV Solu-Medrol. Switch to p.o. prednisone. If remains stable, home tomorrow. Care was discussed with the patient. MMODL / IJN: [id number] /
[2017-08-01] MEDS: IPRATROPIUM-ALBUTEROL 3 ML NEB INHALATION SCH ×3 (07:27→15:41)
[2017-08-01] MEDS: BUDESONIDE 1 MG/2 ML NEBU INHALATION SCH (07:27)
[2017-08-01] MEDS: MEGESTROL 400 MG/10 ML CUP PO SCH (07:40)
[2017-08-01] MEDS: NICOTINE 21MG/24HR PATCH TRANSDERM SCH (07:40)
[2017-08-01] MEDS: ENOXAPARIN 40 MG/0.4 ML SYRINGE SQ SCH (07:40)
[2017-08-01] MEDS: AZITHROMYCIN 500 MG TAB PO SCH (07:41)
[2017-08-01] MEDS: PREGABALIN 75 MG CAP PO SCH ×2 (07:41→16:22)
[2017-08-01] MEDS: predniSONE 20 MG TAB PO SCH (07:41)
[2017-08-01] MEDS: MODAFINIL 100 MG TAB PO SCH (07:41)
[2017-08-01] MEDS: MORPHINE SULFATE ER 30 MG TABLET PO SCH (07:41)
[2017-08-01] MEDS: DONEPEZIL 10 MG TAB PO SCH (07:42)
[2017-08-01] MEDS: cefTRIAXone IN SWFI 1,000 MG/10 ML SYRINGE IVP SCH (07:42)
[2017-08-01] MEDS: PANTOPRAZOLE 40 MG TABLET PO SCH (07:44)
[2017-08-01 07:45] VITALS: BP 116/73; TEMP 98
[2017-08-01 08:49] LABS: Anion Gap 9 mmol/L; Blood Urea Nitrogen 23 mg/dL (7-17); Calcium 8.5 mg/dL (8.4-10.2); Carbon Dioxide 33 mmol/L (22-30); Chloride 94 mmol/L (98-107); Glucose 118 mg/dL (74-99); Potassium 4.4 mmol/L (3.5-5.1); Sodium 136 mmol/L (137-145)
--- NOTE | 2017-08-01 10:16 | P.PN ---
Subjective Progress Note Date: 08/01/17 Principal diagnosis: Acute COPD exacerbation, purulent tracheobronchitis, acute on chronic hypoxic respiratory failure related to severe COPD, pulmonary hypertension likely related to cor pulmonale, cachexia of severe COPD and end-stage lung disease, severe degree of protein calorie malnourishment, chronic fibromyalgia, history of cerebral aneurysm being monitored on outpatient setting 08/01/2017, patient seen eval examined during the rounds clinically patient has been doing slightly better with still get short of breath on activity and exertion still have intermittent congestion patient has been on steroids antibiotics tolerating very well she has expressed her desire to go home, and agree able for follow-up on outpatient setting 07/31/2017, patient seen eval examined during the rounds clinically patient is slightly better still feel congested able to get him and move around cough and congestion is present cuff is mostly nonproductive she get short of breath on activity and exertion however her oxygen saturation has improved significantly with therapy 61-year-old female with extensive history of smoking and nicotine use she used to smoke more than pack a day for almost 40-45 years however lately has cut down to less than pack a day, for the last couple of weeks patient has not been feeling well started with upper respiratory infection with increase nasal stuffiness congestion and postnasal drip symptoms have been progressive was seen by primary service due to progressive respiratory symptoms cough and increasing shortness of breath advised to be admitted into the hospital, preliminary chest x-ray and CAT scan of chest suggestive of the left lower lobe pneumonia patient is being treated with antibiotics, steroids and bronchodilators care plan discussed with the patient and family present at bedside at length patient has been consult about smoking cessation. Patient denies any loss of consciousness) denies any hemoptysis denies any bowel or bladder dysfunction , On arrival patient noted to have a low-grade fever along with the significantly low oxygen saturation of only 89% at room air Objective - Vital Signs Vital signs: Vital Signs Temp 98.0 F 08/01/17 07:25 Pulse 88 08/01/17 07:37 Resp 16 08/01/17 07:25 BP 116/73 08/01/17 07:25 Pulse Ox 94 L 08/01/17 07:25 Intake & Output 07/31/17 08/01/17 08/01/17 18:59 06:59 18:59 Intake Total 1180 Balance 1180 Intake: Oral 1180 Other: Voiding Method Toilet Toilet # Voids 3 2 - Exam - Constitutional General appearance: disheveled, no acute distress, thin - EENT Eyes: EOMI, PERRLA, poor dentition, normal appearance ENT: normal oropharynx Ears: bilateral: normal - Neck Carotids: bilateral: upstroke normal, bruit absent Thyroid: bilateral: normal size - Respiratory Respiratory: left: rales, rhonchi, wheezing, bilateral: diminished, prolonged expiration - Cardiovascular Rhythm: regular Heart sounds: normal: S1, S2 - Gastrointestinal General gastrointestinal: decreased bowel sounds, soft - Integumentary Integumentary: normal, normal turgor - Neurologic Normal neuro exam Neurologic: CNII-XII intact - Labs CBC & Chem 7: 07/27/17 17:00 08/01/17 07:52 Labs: Abnormal Lab Results - Last 24 Hours (Table) 08/01/17 Range/Units 07:52 Sodium 136 L (137-145) mmol/L Chloride 94 L (98-107) mmol/L Carbon Dioxide 33 H (22-30) mmol/L BUN 23 H (7-17) mg/dL Glucose 118 H (74-99) mg/dL Microbiology - Last 24 Hours (Table) 07/27/17 17:00 Blood Culture - Preliminary Blood No Growth after 96 hours Assessment and Plan Assessment: Acute hypoxic respirator failure Acute left lower lobe likely community-acquired pneumonia with leukocytosis likely Sirs Elevated CO2, chronic baseline hypercapnia cannot be excluded Severe COPD emphysema Pulmonary hypertension likely related to end-stage lung disease and severe COPD Electrolyte imbalance with severe hypokalemia improved significantly Cerebral aneurysm Chronic severe fibromyalgia Cachexia, severe degree of protein calorie malnourishment may very well be related to end-stage lung disease Plan: Gentle IV hydration Supplemental oxygen Breathing treatment with bronchodilators Can be switched to oral prednisone and oral antibiotics with discharge home and follow-up on outpatient setting Broad-spectrum antibiotics Education and counseling about smoking cessation and care of and his stage lung disease COPD emphysema Further evaluation and intervention and treatment for her outpatient basis If remains stable possible discharge Time with Patient: Greater than 30
[2017-08-01 11:25] VITALS: PULSE 88
--- NOTE | 2017-08-02 08:10 | DS ---
DISCHARGE SUMMARY DATE OF ADMISSION: 07/27/17. DATE OF DISCHARGE: 08/01/17. FINAL DIAGNOSES: 1. Left lower lobe pneumonia suspect gram-negative organism, present on admission. 2. Acute severe chronic obstructive pulmonary disease exacerbation. 3. Chronic nicotine dependence. Patient is an active cigarette smoker. 4. Severe protein-calorie malnutrition, BMI 14.4. 5. Acute diarrhea antibiotic associated. 6. Chronic fibromyalgia. 7. Primary osteoarthritis in multiple joints bilaterally. 8. Cerebral aneurysm being followed as an outpatient. HOSPITAL COURSE: This patient presented with weakness, cough, shortness of breath, found to have pneumonia and COPD exacerbation. Also, severe malnutrition BMI 40.4. I did a CT scan chest, abdomen and pelvis. No evidence of any malignancy was discovered. The patient is counseled and counseled repeatedly and reminded to stop smoking. She agrees to do so. EXAM: Lungs: Decreased breath sounds. Cardiovascular: 1st and 2nd sounds normal. The patient is able to go and get back from the bathroom. CONSULTATION: Dr. Jamaal Carpenter from Pulmonary. DISCHARGE MEDICATIONS: 1. [place] 10 1 tab q.4h p.r.n. 2. Morphine sulfate IR 30 mg p.o. b.i.d. 3. Lyrica 150 mg p.o. t.i.d. 4. Multivitamin 1 tablet p.o. daily. 5. Ventolin HFA 2 puffs q.6h p.r.n. 6. Prolia 60 mg subcu 8:00 p.m. 7. Aricept 10 mg p.o. daily. 8. Megace Extra Strength. 9. Provigil 100 mg p.o. daily. 10.Nicorette 4 mg q.2 p.r.n. 11.Prilosec 20 mg p.o. b.i.d. 12.Lamictal 25 p.o. q.h.s. 13.Tizanidine 4 mg p.o. daily p.r.n. 14.Aspirin 81 mg p.o. daily. 15.DuoNeb q.i.d. 16.Nicotine 20 mg patch. 17.Prednisone taper. The patient's pulse ox is good on room air. FOLLOWUP: Follow up with Dr. Natarajan on 08/07/17. Follow up with Dr. Carpenter in 1 week. MMODL / IJN: [id number] /
== END 2017-08-01 16:45 | disposition home or self-care (01) | DRG 177 ==
LOC: EC 16:09 → 5MS5E 17:43
PROVIDERS: ADMIT Hospitalist; ATTEND Hospitalist
DX: J15.6 Pneumonia due to other Gram-negative bacteria (principal); E43 Unspecified severe protein-calorie malnutrition; J96.21 Acute and chronic respiratory failure with hypoxia; Z68.1 Body mass index [BMI] 19.9 or less, adult; R64 Cachexia; K52.1 Toxic gastroenteritis and colitis; I67.1 Cerebral aneurysm, nonruptured; I27.29 Other secondary pulmonary hypertension; I27.81 Cor pulmonale (chronic); G35 Multiple sclerosis; F03.90 Unspecified dementia, unspecified severity, without behavioral disturbance, psychotic disturbance, mood disturbance, and anxiety; J43.9 Emphysema, unspecified; J20.9 Acute bronchitis, unspecified; M19.91 Primary osteoarthritis, unspecified site; T36.95XA Adverse effect of unspecified systemic antibiotic, initial encounter; M62.59 Muscle wasting and atrophy, not elsewhere classified, multiple sites; E87.6 Hypokalemia; E86.0 Dehydration; M50.30 Other cervical disc degeneration, unspecified cervical region; M79.7 Fibromyalgia; F32.9 Major depressive disorder, single episode, unspecified; F41.9 Anxiety disorder, unspecified; K21.9 Gastro-esophageal reflux disease without esophagitis; F17.210 Nicotine dependence, cigarettes, uncomplicated; Z71.6 Tobacco abuse counseling; Z71.3 Dietary counseling and surveillance; Z79.82 Long term (current) use of aspirin; Z79.891 Long term (current) use of opiate analgesic; Z79.51 Long term (current) use of inhaled steroids; Z79.899 Other long term (current) drug therapy; Z98.51 Tubal ligation status; Z80.0 Family history of malignant neoplasm of digestive organs; Z80.1 Family history of malignant neoplasm of trachea, bronchus and lung
CPT/HCPCS: 36415; 71046; 71260; 74177; 80048; 80053; 82550; 82553; 83735; 83880; 84484; 85025; 85610; 85730; 87040; 87324; 87328; 87329; 93005; 94640; 94644; 94760; 96365; 96366; 96375; 99285

== ENCOUNTER → 2017-11-02 | Outpatient (CLI) | payer MEDICARE, OTHER ==
--- NOTE | 2017-11-07 12:12 | MM ---
Reason for exam: screening (asymptomatic). Last mammogram was performed 2 years and 11 months ago. History: Patient is postmenopausal. Cyst aspiration of the left breast. Physical Findings: A clinical breast exam by your physician is recommended on an annual basis and results should be correlated with mammographic findings. MG 3D Screening Mammo W/Cad Bilateral CC and MLO view(s) were taken. Prior study comparison: December 16, 2014, bilateral MG screening mammo w CAD. December 12, 2013, bilateral MG screening mammo w CAD. The breast tissue is heterogeneously dense. This may lower the sensitivity of mammography. There is no discrete abnormality. No significant changes when compared with prior studies. ASSESSMENT: Negative, BI-RAD 1 RECOMMENDATION: Routine screening mammogram of both breasts in 1 year.
== END | disposition home or self-care (01) ==
LOC: RADMAMWWP 14:37
PROVIDERS: ATTEND Family Medicine
DX: Z12.31 Encounter for screening mammogram for malignant neoplasm of breast (principal)
CPT/HCPCS: 77063; 77067

== ENCOUNTER 2018-03-04 12:55 | Inpatient (IN) | payer MEDICARE, OTHER ==
[2018-03-04] MEDS ORDERED: SODIUM CHLORIDE 0.9% 1,000 ML IV ONE (13:11)
[2018-03-04] MEDS ORDERED: ONDANSETRON 4 MG/2 ML VIAL IVP STA (13:12)
[2018-03-04 13:16] LABS: Glucose,Whole Blood 201 mg/dL (75-99)
--- NOTE | 2018-03-04 13:16 | ED ---
General Adult HPI - General Stated complaint: Vomiting Time Seen by Provider: 03/04/18 13:03 Source: family, RN notes reviewed Mode of arrival: wheelchair Limitations: altered mental status - History of Present Illness Initial comments: Patient is an unresponsive 62-year-old female presenting to the emergency department for family concerns of change in mental status. Patient last known well at 3 AM. 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 Family went to check on her around noon and found her with decreased responsiveness. They have no concerns for drug use or abuse. They this patient did have some verbal communication around noon however this time patient is nonverbal. Very limited ability to follow commands. Patient had somewhat similar symptoms a couple months ago diagnosed with pneumonia. Patient was not as severe at that time however. Patient does have COPD however has never been intubated and they're not sure patient has been hospitalized for COPD. - Related Data Home Medications Medication Instructions Recorded Confirmed Hydrocodone/Acetaminophen 1 tab PO Q4H PRN 09/03/13 03/04/18 [Hydrocodone/Acetaminophen 10-325] Morphine Sulfate Ir [MSIR] 30 mg PO BID 09/03/13 03/04/18 Pregabalin [Lyrica] 150 mg PO TID 09/03/13 03/04/18 Multivitamins, Thera [Multivitamin 1 tab PO DAILY 01/27/15 03/04/18 (formulary)] Albuterol Inhaler [Ventolin Hfa 2 puff INHALATION RT-Q6H PRN 02/20/15 03/04/18 Inhaler] Denosumab [Prolia] 60 mg SQ Q180D 07/27/17 03/04/18 Donepezil [Aricept] 10 mg PO DAILY 07/27/17 03/04/18 Megestrol Acetate [Megace 625 mg PO DAILY 07/27/17 03/04/18 Extra-Strength] Modafinil [Provigil] 100 mg PO DAILY 07/27/17 03/04/18 Omeprazole [PriLOSEC] 20 mg PO BID 07/27/17 03/04/18 lamoTRIgine [LaMICtal] 25 mg PO HS 07/27/17 03/04/18 tiZANidine HCL 4 mg PO DAILY PRN 05/09/18 12/15/18 Ipratropium-Albuterol Nebulize 3 ml INHALATION RT-TID 03/04/18 03/04/18 [Duoneb 0.5 mg-3 mg/3 ml Soln] Previous Rx's Medication Instructions Recorded Aspirin 81 mg PO DAILY #1 chewable 08/01/17 Allergies Allergy/AdvReac Type Severity Reaction Status Date / Time No Known Allergies Allergy Verified 03/04/18 13:47 Review of Systems ROS Statement: Those systems with pertinent positive or pertinent negative responses have been documented in the HPI. ROS Other: All systems not noted in ROS Statement are negative. Limitations: ROS unobtainable due to patients medical condition Gastrointestinal: Reports: nausea Neurological: Reports: confusion Past Medical History Past Medical History: COPD, Fibromyalgia, GERD/Reflux, Memory Impairment, Osteoarthritis (OA) Additional Past Medical History / Comment(s): emphysema, irritable bowels, degenerative disc dx neck and back, MS, dememtia per pt, sm aneurysm in rt [facility] (dr. pimentel) History of Any Multi-Drug Resistant Organisms: None Reported Past Surgical History: Orthopedic Surgery, Tubal Ligation Additional Past Surgical History / Comment(s): right shoulder surgery. colonoscopy/polys benign, egd w/bx neg Past Anesthesia/Blood Transfusion Reactions: No Reported Reaction Smoking Status: Current every day smoker - Past Family History Mother Family Medical History: Cancer Additional Family Medical History / Comment(s): liver/pancreastic cancer Father Family Medical History: Cancer Additional Family Medical History / Comment(s): lung cancer General Exam Limitations: altered mental status General appearance: lethargic, cachectic, other (Very limited ability to follow commands) Head exam: Present: atraumatic Eye exam: Present: normal appearance, PERRL ENT exam: Present: normal oropharynx Neck exam: Present: normal inspection. Absent: tenderness Respiratory exam: Present: rales Cardiovascular Exam: Present: regular rate, normal rhythm GI/Abdominal exam: Present: soft. Absent: tenderness Extremities exam: Present: normal inspection Neurological exam: Present: altered Expanded Neurological exam: Present: protecting the airway Motor strength exam: RUE: 3, LUE: 3, RLE: 2/1, LLE: 2/1 Eye Response: (3) open to voice Motor Response: (4) withdraws to pain Verbal Response: (1) no verbal response Psychiatric exam: Present: other (Nonverbal) Skin exam: Present: normal color Course Vital Signs 03/04/18 03/04/18 03/04/18 13:15 13:40 14:50 Temperature 97.6 F Pulse Rate 87 87 87 Respiratory 14 16 16 Rate Blood Pressure 111/76 109/66 96/67 O2 Sat by Pulse 100 94 L 95 Oximetry EKG Findings - EKG Comments: EKG Findings:: Normal sinus rhythm 89. LA 140. QRS 92. QT 390. QTC 474. Normal axis. Q wave in lead V1 and V2. No acute ST change. Procedures - ABG Interpretation Ph: 7.24 PCO2: 77 PO2: 69 Interpretation: respiratory acidosis Medical Decision Making - Medical Decision Making Patient reevaluated and significantly improved following BiPAP. Patient is alert and verbal. Patient and family have been updated. Case was discussed in detail with Dr. San, who will admit covered for Dr. Natarajan. Dr. Tucker has previously seen this patient and will be placed on consult. - Lab Data Result diagrams: 03/04/18 13:09 03/04/18 13:09 Lab Results 03/04/18 03/04/18 03/04/18 Range/Units 13:03 13:09 13:09 WBC 15.9 H (3.8-10.6) k/uL RBC 4.66 (3.80-5.40) m/uL Hgb 14.4 (11.4-16.0) gm/dL Hct 47.9 H (34.0-46.0) % MCV 102.8 H (80.0-100.0) fL MCH 31.0 (25.0-35.0) pg MCHC 30.2 L (31.0-37.0) g/dL RDW 14.1 (11.5-15.5) % Plt Count 250 (150-450) k/uL Neutrophils % 89 % Lymphocytes % 5 % Monocytes % 5 % Eosinophils % 1 % Basophils % 1 % Neutrophils # 14.0 H (1.3-7.7) k/uL Lymphocytes # 0.7 L (1.0-4.8) k/uL Monocytes # 0.8 (0-1.0) k/uL Eosinophils # 0.1 (0-0.7) k/uL Basophils # 0.1 (0-0.2) k/uL Hypochromasia Moderate Macrocytosis Slight PT (9.0-12.0) sec INR (<1.2) APTT (22.0-30.0) sec Sample Site ABG pH (7.35-7.45) ABG pCO2 (35-45) mmHg ABG pO2 (83-108) mmHg ABG HCO3 (21-25) mmol/L ABG Total CO2 (19-24) mmol/L ABG O2 Saturation (94-97) % ABG Base Excess mmol/L Rubio Test FiO2 % Sodium (137-145) mmol/L Potassium (3.5-5.1) mmol/L Chloride (98-107) mmol/L Carbon Dioxide (22-30) mmol/L Anion Gap mmol/L BUN (7-17) mg/dL Creatinine (0.52-1.04) mg/dL Est GFR (CKD-EPI)AfAm (>60 ml/min/1.73 sqM) Est GFR (CKD-EPI)NonAf (>60 ml/min/1.73 sqM) Glucose (74-99) mg/dL POC Glucose (mg/dL) 201 H (75-99) mg/dL POC Glu Piped Pocket Machine Operator ID Petitpren, Mimi Calcium (8.4-10.2) mg/dL Total Bilirubin (0.2-1.3) mg/dL AST (14-36) U/L ALT (9-52) U/L Alkaline Phosphatase (38-126) U/L Total Creatine Kinase 84 (30-135) U/L CK-MB (CK-2) 3.0 H (0.0-2.4) ng/mL CK-MB (CK-2) Rel Index 3.6 Troponin I 0.020 (0.000-0.034) ng/mL Total Protein (6.3-8.2) g/dL Albumin (3.5-5.0) g/dL 03/04/18 03/04/18 03/04/18 Range/Units 13:09 13:09 13:21 WBC (3.8-10.6) k/uL RBC (3.80-5.40) m/uL Hgb (11.4-16.0) gm/dL Hct (34.0-46.0) % MCV (80.0-100.0) fL MCH (25.0-35.0) pg MCHC (31.0-37.0) g/dL RDW (11.5-15.5) % Plt Count (150-450) k/uL Neutrophils % % Lymphocytes % % Monocytes % % Eosinophils % % Basophils % % Neutrophils # (1.3-7.7) k/uL Lymphocytes # (1.0-4.8) k/uL Monocytes # (0-1.0) k/uL Eosinophils # (0-0.7) k/uL Basophils # (0-0.2) k/uL Hypochromasia Macrocytosis PT 10.4 (9.0-12.0) sec INR 1.0 (<1.2) APTT 23.3 (22.0-30.0) sec Sample Site r bra ABG pH 7.24 L (7.35-7.45) ABG pCO2 78 H* (35-45) mmHg ABG pO2 70 L (83-108) mmHg ABG HCO3 33 H (21-25) mmol/L ABG Total CO2 36 H (19-24) mmol/L ABG O2 Saturation 93.0 L (94-97) % ABG Base Excess 6.0 mmol/L Rubio Test Yes FiO2 44 % Sodium 140 (137-145) mmol/L Potassium 4.2 (3.5-5.1) mmol/L Chloride 98 (98-107) mmol/L Carbon Dioxide 29 (22-30) mmol/L Anion Gap 13 mmol/L BUN 29 H (7-17) mg/dL Creatinine 0.71 (0.52-1.04) mg/dL Est GFR (CKD-EPI)AfAm >90 (>60 ml/min/1.73 sqM) Est GFR (CKD-EPI)NonAf >90 (>60 ml/min/1.73 sqM) Glucose 206 H (74-99) mg/dL POC Glucose (mg/dL) (75-99) mg/dL POC Glu Piped Pocket Machine Operator ID Calcium 9.0 (8.4-10.2) mg/dL Total Bilirubin 0.6 (0.2-1.3) mg/dL AST 55 H (14-36) U/L ALT 47 (9-52) U/L Alkaline Phosphatase 93 (38-126) U/L Total Creatine Kinase (30-135) U/L CK-MB (CK-2) (0.0-2.4) ng/mL CK-MB (CK-2) Rel Index Troponin I (0.000-0.034) ng/mL Total Protein 7.1 (6.3-8.2) g/dL Albumin 4.4 (3.5-5.0) g/dL - Radiology Data Radiology results: image reviewed (Chest x-ray shows COPD. Cannot rule out developing infiltrate left base.) Critical Care Time Critical Care Time: Yes Total Critical Care Time: 34 Disposition Clinical Impression: Acute respiratory failure with hypoxia and hypercarbia Disposition: ADMITTED IP TO THIS [facility] Condition: Serious Is patient prescribed a controlled substance at d/c from ED?: No Referrals: Jonathan Natarajan DO [Primary Care Provider] - 1-2 days Decision Time: 15:57
[2018-03-04 13:24] LABS: ABG HCO3 33 mmol/L (21-25); ABG PH 7.24 (7.35-7.45); ABG PO2 70 mmHg (83-108); ABG TCO2 36 mmol/L (19-24)
[2018-03-04 13:26] LABS: ABG PCO2 78 mmHg (35-45)
[2018-03-04 13:48] LABS: Basophils # (A) 0.1 k/uL (0-0.2); Basophils % (A) 1 %; Eosinophils # (A) 0.1 k/uL (0-0.7); Eosinophils % (A) 1 %; HCT 47.9 % (34.0-46.0); HGB 14.4 gm/dL (11.4-16.0); Hypochromasia Moderate; Lymphocytes # (A) 0.7 k/uL (1.0-4.8); Lymphocytes % (A) 5 %; MCHC 30.2 g/dL (31.0-37.0); MCV 102.8 fL (80.0-100.0); Macrocytosis Slight; Mean Platelet Volume 8.4; Monocytes # (A) 0.8 k/uL (0-1.0); Monocytes % (A) 5 %; Neutrophils % (A) 89 %; Platelet Count 250 k/uL (150-450); RBC 4.66 m/uL (3.80-5.40); RDW 14.1 % (11.5-15.5); WBC 15.9 k/uL (3.8-10.6)
--- NOTE | 2018-03-04 13:49 | CT ---
EXAMINATION TYPE: CT brain wo con DATE OF EXAM: 03/04/2018 COMPARISON: NONE HISTORY: episode of being unresponsive per patient family CT DLP: 1099.4 mGycm Automated exposure control for dose reduction was used. FINDINGS: Central structures are midline. There is no evidence of hydrocephalus. No acute focal lesion, mass ef fect or midline shift is seen. I do not see evidence of intracranial blood. Visualized portions of the paranasal sinuses and mastoids are clear. The bony calvarium is intact. IMPRESSION: NO ACUTE INTRACRANIAL ABNORMALITY.
[2018-03-04 13:56] LABS: Partial Thromboplastin Time 23.3 sec (22.0-30.0); Prothrombin Time 10.4 sec (9.0-12.0)
[2018-03-04 13:59] LABS: ALT 47 U/L (9-52); AST 55 U/L (14-36); Albumin 4.4 g/dL (3.5-5.0); Alkaline Phosphatase 93 U/L (38-126); Anion Gap 13 mmol/L; Blood Urea Nitrogen 29 mg/dL (7-17); Carbon Dioxide 29 mmol/L (22-30); Chloride 98 mmol/L (98-107); Glucose 206 mg/dL (74-99); Potassium 4.2 mmol/L (3.5-5.1); Sodium 140 mmol/L (137-145); Total Bilirubin 0.6 mg/dL (0.2-1.3); Total Protein 7.1 g/dL (6.3-8.2)
--- NOTE | 2018-03-04 14:06 | XR ---
EXAMINATION TYPE: XR chest 1V portable DATE OF EXAM: 03/04/2018 HISTORY: altered mental status. REFERENCE: Previous study dated 07/27/2017. FINDINGS: The lungs are overinflated. The heart is not enlarged. There are chronic interstitial paulson es. I there is a questionable opacity developing in the left midlung. There is no evidence of interst itial change. Pleural spaces are clear. IMPRESSION: 1. COPD. 2. CHRONIC INTERSTITIAL CHANGE. 3. I COULD NOT EXCLUDE A DEVELOPING LEFT SIDED PNEUMONIA.
[2018-03-04 14:23] LABS: Troponin I 0.02 ng/mL (0.000-0.034)
[2018-03-04 15:59] LABS: Appearance,Urine Clear (Clear); Bilirubin,Urine Negative (Negative); Blood,Urine Negative (Negative); Color,Urine Yellow; Glucose,Urine (UA) 1+ (Negative); Hyaline Casts,Urine 3 /lpf (0-2); Ketones,Urine Negative (Negative); Leukocyte Esterase,Urine Negative (Negative); Mucus,Urine Few /hpf; Nitrite,Urine Negative (Negative); Protein,Urine 1+ (Negative); RBC,Urine <1 /hpf (0-5); Specific Gravity,Urine 1.021 (1.001-1.035); Urobilinogen,Urine <2.0 mg/dL (<2.0); WBC,Urine <1 /hpf (0-5)
[2018-03-04] MEDS ORDERED: IPRATROPIUM-ALBUTEROL 3 ML NEB INHALATION PRN (16:02)
[2018-03-04] MEDS ORDERED: PNEUMONIA PROTOCOL UTILIZED 1 EACH MISC PO PRN (16:03)
[2018-03-04] MEDS ORDERED: AZITHROMYCIN 500 MG in SODIUM CHLORIDE 0.9% 250 ML IVPB STA (16:12)
[2018-03-04 16:19] LABS: Cocaine Screen,Urine Not Detected (NotDetected); Opiate Screen,Urine Detected (NotDetected); Phencyclidine Screen,Urine Not Detected (NotDetected); Urn Cannabinoid Scrn Not Detected (NotDetected)
[2018-03-04 16:20] LABS: Amphetamine Screen,Urine Not Detected (NotDetected); Barbiturate Screen,Urine Not Detected (NotDetected); Benzodiazepines Screen,Urine Not Detected (NotDetected); Methadone Screen, Urine Not Detected (NotDetected); Oxycodone Screen, Urine Not Detected (NotDetected); Tricyclic Antidepressant,Urine Not Detected (NotDetected)
[2018-03-04] MEDS ORDERED: tiZANidine 4 MG TAB PO PRN (18:38)
[2018-03-04] MEDS ORDERED: NALOXONE 0.4 MG/ML 1 ML VIAL IV PRN (18:49)
[2018-03-04] MEDS ORDERED: CALCIUM CARBONATE 500 MG CHEWABLE PO PRN (18:49)
[2018-03-04] MEDS ORDERED: ACETAMINOPHEN TAB 325 MG TAB PO PRN (18:49)
[2018-03-04] MEDS: lamoTRIgine 25 MG TAB PO SCH (19:57)
[2018-03-04] MEDS: PANTOPRAZOLE 40 MG TABLET PO SCH (19:57)
[2018-03-04] MEDS: methylPREDNISolone SOD SUCCI 125 MG/2 ML VIAL IV SCH ×3 (19:58→22:58)
[2018-03-04] MEDS ORDERED: IPRATROPIUM-ALBUTEROL 3 ML NEB INHALATION SCH (20:00)
[2018-03-04] MEDS: SODIUM CHLORIDE 0.9% 1,000 ML IV SCH (20:08)
[2018-03-04] MEDS: IPRATROPIUM-ALBUTEROL 3 ML NEB INHALATION SCH ×3 (20:57→21:02)
[2018-03-04] MEDS: BUDESONIDE 1 MG/2 ML NEBU INHALATION SCH (20:58)
[2018-03-04] MEDS: ENOXAPARIN 40 MG/0.4 ML SYRINGE SQ SCH (21:12)
--- NOTE | 2018-03-04 23:41 | HP ---
HISTORY AND PHYSICAL DATE OF ADMISSION: 03/04/2018 DATE OF SERVICE: 03/04/2018 PRESENTING COMPLAINT: Lethargic. HISTORY OF PRESENTING COMPLAINT: This is a 62-year-old patient of Dr. Jonathan Natarajan and also follows with sample display preparer Dr. Carpenter. The patient is a long-standing smoker, continues to smoke. The patient here in July of this year, was then diagnosed with pneumonia and admitted with COPD exacerbation. The patient has got severe malnutrition. Patient does eat well per family, but continues to lose weight. BMI is only 14.4. Last time CT scan of the chest, abdomen, and pelvis was done. No malignancy was found. The patient continues to smoke. The patient lives with youngest daughter at home. Able to slowly get around the house. Has oxygen at home at night. The patient is found to be really weak, lethargic, and she was brought into the ER. Blood gas showed the patient to be with a pCO2 78 and a PO2 of 70 and a pH of 7.24. Patient is put on BiPAP to which she did feel a bit better. When I came down to see the patient in the ER, patient is still somewhat rather lethargic off the BiPAP. Waiting to get transferred upstairs. Nurse also told me she had a fever. The patient already received antibiotics. Chest x-ray showed infiltrates. REVIEW OF SYSTEMS: Cannot be obtained as patient rather lethargic right now. PAST MEDICAL HISTORY: COPD, fibromyalgia, GERD, osteoarthritis, DJD, cerebral aneurysm being followed as an outpatient. PAST SURGICAL HISTORY: Orthopedic surgery, tubal ligation, right shoulder surgery, EGD, colonoscopy. PSYCH HISTORY: Anxiety and depression. SOCIAL HISTORY: Lives with her youngest daughter. Continues to smoke a pack a day for over 43 years. No alcohol. FAMILY HISTORY: Of liver and pancreatic cancer. HOME MEDICATIONS: 1. Tizanidine 4 mg p.o. daily p.r.n. 2. Lamictal 25 mg at bedtime. 3. Lyrica 150 mg p.o. t.i.d. 4. Prilosec 20 mg b.i.d. 5. Multivitamin tablet p.o. daily. 6. Morphine sulfate 30 mg p.o. b.i.d. 7. Provigil 100 mg p.o. daily. 8. Megace 625 p.o. daily. 9. DuoNeb t.i.d. 10.[place] 10 one tablet q.4h p.r.n. 11.Aricept 10 mg p.o. daily. 12.Prolia 60 mg subcu of 180 days. 13.Aspirin 81 mg a day. 14.Ventolin HFA p.r.n. ALLERGIES: None. PHYSICAL EXAMINATION: VITAL SIGNS ON PRESENTATION: Temperature 101.7, pulse 90, respiration 25, blood pressure 101/67, pulse ox 98% on nasal cannula. GENERAL APPEARANCE: Thin built. BMI 30.5. Lying in bed, lethargic but arousable. EYES: Pupils equal. Conjunctivae pale. HEENT: External appearance of nose and ears normal. Oral cavity a bit dry. NECK: JVD unable to assess. Mass not palpable. RESPIRATORY effort increased. LUNGS: Poor air entry. CARDIOVASCULAR: First and second sounds normal. No edema. ABDOMEN: Soft, nontender. Liver and spleen not palpable. LYMPHATICS: No lymph nodes palpable in the neck and axilla. PSYCHIATRY: Unable to assess. NEUROLOGICAL: Pupils equal. No facial asymmetry. Does not respond to stimuli. MUSCULOSKELETAL: Diffuse loss of subcutaneous fat. INVESTIGATIONS: White count 15.9, hemoglobin 14.4. Blood gas showed pH 7.24, pCO2 78, PO2 70, potassium 4.2, BUN 29, creatinine 0.71. Chest x-ray personally reviewed by me showed infiltrates. ASSESSMENT: 1. Acute pneumonia with possible sepsis, probable sepsis present on admission. 2. Acute metabolic encephalopathy from CO2 narcosis. 3. Acute hypoxic and hypercapnic respiratory failure from advancing chronic obstructive pulmonary disease. 4. Severe protein calorie malnutrition. BMI only 13.3. 5. Chronic fibromyalgia. 6. Primary osteoarthritis multiple joints bilateral. 7. Cerebral aneurysm which is being followed as an outpatient. PLAN: Patient is started on bronchodilators every 4 hours. IV steroids. Inhaled steroids. Also antibiotics in form of ceftriaxone and Zithromax. The patient is on BiPAP. Dr. Carpenter from Pulmonary is consulted. Lovenox for DVT prophylaxis. We will also have a dietitian see the patient. As per the patient's daughter, patient's code status is DO NOT RESUSCITATE. They will bring the papers in for the same. Care was discussed with 3 daughters at the bedside. Questions were answered. Copy to Dr. Natarajan. MMODL / IJN: [id number] /
[2018-03-05] MEDS: IPRATROPIUM-ALBUTEROL 3 ML NEB INHALATION SCH ×6 (00:06→20:17)
[2018-03-05 06:04] LABS: Glucose,Whole Blood 116 mg/dL (75-99)
[2018-03-05] MEDS: INSULIN ASPART 100 UNIT/ML 1 ML 10 ML VIAL SQ SCH ×4 (06:06→21:25)
[2018-03-05] MEDS: PANTOPRAZOLE 40 MG TABLET PO SCH ×2 (06:23→17:37)
[2018-03-05] MEDS: methylPREDNISolone SOD SUCCI 125 MG/2 ML VIAL IV SCH ×4 (06:23→23:21)
[2018-03-05 07:10] LABS: Basophils % (A) 0 %; Eosinophils % (A) 0 %; HCT 42.6 % (34.0-46.0); HGB 13.3 gm/dL (11.4-16.0); Hypochromasia Moderate; Lymphocytes # (A) 0.5 k/uL (1.0-4.8); Lymphocytes % (A) 4 %; MCH 32.1 pg (25.0-35.0); MCHC 31.2 g/dL (31.0-37.0); MCV 102.9 fL (80.0-100.0); Macrocytosis Slight; Mean Platelet Volume 8.5; Monocytes # (A) 0.4 k/uL (0-1.0); Monocytes % (A) 3 %; Neutrophils # (A) 9.5 k/uL (1.3-7.7); Neutrophils % (A) 91 %; Platelet Count 140 k/uL (150-450); RBC 4.14 m/uL (3.80-5.40); RDW 13.9 % (11.5-15.5); WBC 10.4 k/uL (3.8-10.6)
[2018-03-05] MEDS: BUDESONIDE 1 MG/2 ML NEBU INHALATION SCH ×2 (08:10→20:17)
[2018-03-05] MEDS: ENOXAPARIN 40 MG/0.4 ML SYRINGE SQ SCH (09:37)
[2018-03-05] MEDS: MEGESTROL 400 MG/10 ML CUP PO SCH (09:37)
[2018-03-05] MEDS: MODAFINIL 100 MG TAB PO SCH (09:37)
[2018-03-05] MEDS: PREGABALIN 75 MG CAP PO SCH ×2 (09:37→19:53)
[2018-03-05] MEDS: ASPIRIN 81 MG PO SCH (09:37)
[2018-03-05] MEDS: DONEPEZIL 10 MG TAB PO SCH (09:37)
[2018-03-05] MEDS: SODIUM CHLORIDE 0.9% 1,000 ML IV SCH (09:38)
[2018-03-05 11:38] LABS: Glucose,Whole Blood 171 mg/dL (75-99)
[2018-03-05] MEDS: AZITHROMYCIN 500 MG TAB PO SCH (12:01)
[2018-03-05] MEDS: MULTIVITAMINS, THERA 1 EACH TAB PO SCH (12:02)
[2018-03-05] MEDS: HYDROcodone/APAP 10-325MG 1 EACH TAB PO PRN ×2 (12:04→19:54)
--- NOTE | 2018-03-05 14:16 | XR ---
EXAMINATION TYPE: XR chest 1V portable DATE OF EXAM: 03/05/2018 HISTORY: Resp failure, poss pna. REFERENCE: Previous study dated 03/04/2018. FINDINGS: The lungs are overinflated. There are chronic interstitial changes. Focal area of opacity i n the left lung has largely cleared. The study is rotated. Pleural spaces are clear. The heart is nor mal in size. IMPRESSION: COPD.
--- NOTE | 2018-03-05 16:44 | P.CNPUL ---
History of Present Illness Consult date: 03/04/18 (Late entry note) Reason for consult: dyspnea, COPD Chief complaint: Altered mental status with COPD exacerbation and hypercapnia History of present illness: 62-year-old lean cachectic female with history of end-stage lung disease secondary severe COPD emphysema with prior history of severe hypercapnia found to be more somnolent and lethargic came into emergency department found to have a acute respiratory acidosis patient has been admitted into the hospital on BiPAP with which she responded well and much improved now to give able to arousable at the time of examination, on specific questioning he denies any seizure-like to a loss of consciousness), is still smokes off and on, has been on bronchodilator therapy at home, also has a history of mood disorder depression and chronic pain use a history of dementia Review of Systems All systems: negative Past Medical History Past Medical History: COPD, Dementia, Fibromyalgia, GERD/Reflux, Memory Impairment, Osteoarthritis (OA) Additional Past Medical History / Comment(s): emphysema, irritable bowels, degenerative disc dx neck and back, MS, sm aneurysm in rt jain (dr. pimentel ) History of Any Multi-Drug Resistant Organisms: None Reported Past Surgical History: Orthopedic Surgery, Tubal Ligation Additional Past Surgical History / Comment(s): right shoulder surgery. colonoscopy/polys benign, egd w/bx neg Past Anesthesia/Blood Transfusion Reactions: No Reported Reaction Past Psychological History: Anxiety, Depression Additional Psychological History / Comment(s): pt lives with boyfriend, is independant. no driving takes bus or family takes. has nebulizer Smoking Status: Current every day smoker Past Alcohol Use History: None Reported Additional Past Alcohol Use History / Comment(s): started smoking at age 18 smokes 1ppd Past Drug Use History: None Reported - Past Family History Mother Family Medical History: Cancer Additional Family Medical History / Comment(s): liver/pancreastic cancer Father Family Medical History: Cancer Additional Family Medical History / Comment(s): lung cancer Medications and Allergies Home Medications Medication Instructions Recorded Confirmed Type Hydrocodone/Acetaminophen 1 tab PO Q4H PRN 09/03/13 03/04/18 History [Hydrocodone/Acetaminophen 10-325] Morphine Sulfate Ir [MSIR] 30 mg PO BID 09/03/13 03/04/18 History Pregabalin [Lyrica] 150 mg PO TID 09/03/13 03/04/18 History Multivitamins, Thera [Multivitamin 1 tab PO DAILY 01/27/15 03/04/18 History (formulary)] Albuterol Inhaler [Ventolin Hfa 2 puff INHALATION RT-Q6H PRN 02/20/15 03/04/18 History Inhaler] Denosumab [Prolia] 60 mg SQ Q180D 07/27/17 03/04/18 History Donepezil [Aricept] 10 mg PO DAILY 07/27/17 03/04/18 History Megestrol Acetate [Megace 625 mg PO DAILY 07/27/17 03/04/18 History Extra-Strength] Modafinil [Provigil] 100 mg PO DAILY 07/27/17 03/04/18 History Omeprazole [PriLOSEC] 20 mg PO BID 07/27/17 03/04/18 History lamoTRIgine [LaMICtal] 25 mg PO HS 07/27/17 03/04/18 History tiZANidine HCL 4 mg PO DAILY PRN 07/27/17 03/04/18 History Aspirin 81 mg PO DAILY #1 chewable 08/01/17 03/04/18 Rx Ipratropium-Albuterol Nebulize 3 ml INHALATION RT-TID 03/04/18 03/04/18 History [Duoneb 0.5 mg-3 mg/3 ml Soln] Allergies Allergy/AdvReac Type Severity Reaction Status Date / Time No Known Allergies Allergy Verified 03/04/18 13:47 Physical Exam Vitals: Vital Signs Temp Pulse Pulse Resp BP BP Pulse Ox 03/05/18 15:48 88 03/05/18 15:34 98.3 F 77 22 104/68 95 03/05/18 15:31 88 03/05/18 12:03 92 03/05/18 12:00 99.2 F 88 22 101/64 97 03/05/18 11:50 84 03/05/18 08:27 72 03/05/18 08:10 76 03/05/18 08:00 98.2 F 83 26 H 108/71 97 03/05/18 06:32 17 94 L 03/05/18 04:00 99.3 F 73 16 104/69 93 L 03/05/18 03:35 76 03/05/18 03:18 80 12/16/18 00:21 76 03/05/18 00:15 80 03/04/18 23:12 82 17 03/04/18 23:10 100.1 F H 82 17 111/73 93 L 03/04/18 21:30 100.3 F H 03/04/18 20:00 102.3 F H 91 22 101/62 90 L 03/04/18 18:45 101.7 F H 90 25 H 101/67 90 L 03/04/18 17:43 97.2 F L 03/04/18 17:17 88 03/04/18 17:07 88 03/04/18 17:00 84 16 102/69 Intake and Output 03/05/18 03/05/18 03/05/18 06:59 14:59 22:59 Intake Total 100 200 240 Balance 100 200 240 Intake: Intake, IV Titration 100 100 240 Amount Sodium Chloride 0.9% 1, 240 000 ml @ 60 mls/hr IV . [id number] [facility] Rx#:[id number] cefTRIAXone 1,000 mg In 100 100 Sodium Chloride 0.9% 50 ml @ 100 mls/hr IVPB ONCE STA Rx#:[id number] Oral 100 Other: Weight 31 kg - Constitutional General appearance: cooperative, disheveled, no acute distress - EENT Eyes: PERRLA, poor dentition ENT: hard of hearing Ears: bilateral: normal - Neck Neck: normal ROM Carotids: bilateral: upstroke normal - Respiratory Respiratory: bilateral: diminished, prolonged expiration - Cardiovascular Heart sounds: normal: S1, S2 - Gastrointestinal General gastrointestinal: normal bowel sounds, soft - Neurologic Neurologic: CNII-XII intact - Musculoskeletal Musculoskeletal: generalized weakness, strength equal bilaterally - Psychiatric On deep stimuli does open eyes follow simple commands but goes back to sleep right away Psychiatric: appropriate affect Results - Laboratory Findings CBC and BMP: 03/05/18 05:33 03/04/18 13:09 ABG ABG pH 7.24 (7.35-7.45) L 03/04/18 13:21 ABG pCO2 78 mmHg (35-45) H* 03/04/18 13:21 ABG pO2 70 mmHg (83-108) L 03/04/18 13:21 ABG O2 Saturation 93.0 % (94-97) L 03/04/18 13:21 PT/INR, D-dimer PT 10.4 sec (9.0-12.0) 03/04/18 13:09 INR 1.0 (<1.2) 03/04/18 13:09 Abnormal lab findings: Abnormal Labs 03/04/18 03/04/18 03/04/18 13:03 13:09 13:09 WBC 15.9 H Hct 47.9 H MCV 102.8 H MCHC 30.2 L Plt Count Neutrophils # 14.0 H Lymphocytes # 0.7 L ABG pH ABG pCO2 ABG pO2 ABG HCO3 ABG Total CO2 ABG O2 Saturation BUN Glucose POC Glucose (mg/dL) 201 H AST CK-MB (CK-2) 3.0 H Urine Protein Urine Glucose (UA) Hyaline Casts Urine Mucus Urine Opiates Screen 03/04/18 03/04/18 03/04/18 13:09 13:21 14:37 WBC Hct MCV MCHC Plt Count Neutrophils # Lymphocytes # ABG pH 7.24 L ABG pCO2 78 H* ABG pO2 70 L ABG HCO3 33 H ABG Total CO2 36 H ABG O2 Saturation 93.0 L BUN 29 H Glucose 206 H POC Glucose (mg/dL) AST 55 H CK-MB (CK-2) Urine Protein 1+ H Urine Glucose (UA) 1+ H Hyaline Casts 3 H Urine Mucus Few H Urine Opiates Screen Detected H 03/05/18 03/05/18 03/05/18 05:33 06:03 11:35 WBC Hct MCV 102.9 H MCHC Plt Count 140 L Neutrophils # 9.5 H Lymphocytes # 0.5 L ABG pH ABG pCO2 ABG pO2 ABG HCO3 ABG Total CO2 ABG O2 Saturation BUN Glucose POC Glucose (mg/dL) 116 H 171 H AST CK-MB (CK-2) Urine Protein Urine Glucose (UA) Hyaline Casts Urine Mucus Urine Opiates Screen - Diagnostic Findings Chest x-ray: report reviewed, image reviewed (Computed tomography scan of the head is unremarkable, chest x-ray admit revealed possible infiltrates left lower lobe) Assessment and Plan Assessment: Altered mental status related to acute hypercapnia Developing left lower lobe pneumonia likely community-acquired Acute hypoxic and hypercapnic respiratory failure Severe COPD Mood disorder depression Generalized weakness related to above Plan: Continue BiPAP Aspiration precaution Broad-spectrum antibiotics Breathing treatments Continue home medications once able to swallow safely Follow-up chest x-ray in next 24-48 hours Further recommendations pending plan of care as per clinical response of the patient Time with Patient: Greater than 30
--- NOTE | 2018-03-05 16:48 | P.PN ---
Subjective Progress Note Date: 03/05/18 Principal diagnosis: Acute on chronic hypoxic and hypercapnic respiratory failure, altered mental status related to severe acute hypercapnia, history of narcotic use, left lower lobe pneumonia, 03/05/2018, patient seen eval reexamined during the rounds clinically slightly better more arousable, remains on broad-spectrum antibiotics breathing treatment tolerating very well reviewed medications reviewed repeat chest x-ray performed earlier this morning reviewed the left lower lobe infiltrate seen previously have improved now would recommend to continue current therapy 62-year-old lean cachectic female with history of end-stage lung disease secondary severe COPD emphysema with prior history of severe hypercapnia found to be more somnolent and lethargic came into emergency department found to have a acute respiratory acidosis patient has been admitted into the hospital on BiPAP with which she responded well and much improved now to give able to arousable at the time of examination, on specific questioning he denies any seizure-like to a loss of consciousness), is still smokes off and on, has been on bronchodilator therapy at home, also has a history of mood disorder depression and chronic pain use a history of dementia Objective - Vital Signs Vital signs: Vital Signs Temp 98.3 F 03/05/18 15:34 Pulse 88 03/05/18 15:48 Resp 22 03/05/18 15:34 BP 104/68 03/05/18 15:34 Pulse Ox 95 03/05/18 15:34 Intake & Output 03/04/18 03/05/18 03/05/18 18:59 06:59 18:59 Intake Total 100 440 Balance 100 440 Weight 29.4 kg 31 kg Intake: Intake, IV Titration 100 340 Amount Sodium Chloride 0.9% 1, 240 000 ml @ 60 mls/hr IV . [id number] [facility] Rx#:[id number] cefTRIAXone 1,000 mg In 100 100 Sodium Chloride 0.9% 50 ml @ 100 mls/hr IVPB ONCE STA Rx#:[id number] Oral 100 - Exam - Constitutional General appearance: cooperative, disheveled, no acute distress - EENT Eyes: PERRLA, poor dentition ENT: hard of hearing Ears: bilateral: normal - Neck Neck: normal ROM Carotids: bilateral: upstroke normal - Respiratory Respiratory: bilateral: diminished, prolonged expiration - Cardiovascular Heart sounds: normal: S1, S2 - Gastrointestinal General gastrointestinal: normal bowel sounds, soft - Neurologic Neurologic: CNII-XII intact - Musculoskeletal Musculoskeletal: generalized weakness, strength equal bilaterally - Psychiatric On deep stimuli does open eyes follow simple commands but goes back to sleep right away Psychiatric: appropriate affect - Labs CBC & Chem 7: 03/05/18 05:33 03/04/18 13:09 Labs: Abnormal Lab Results - Last 24 Hours (Table) 03/05/18 03/05/18 03/05/18 Range/Units 05:33 06:03 11:35 MCV 102.9 H (80.0-100.0) fL Plt Count 140 L (150-450) k/uL Neutrophils # 9.5 H (1.3-7.7) k/uL Lymphocytes # 0.5 L (1.0-4.8) k/uL POC Glucose (mg/dL) 116 H 171 H (75-99) mg/dL Assessment and Plan Assessment: Altered mental status related to acute hypercapnia, continued to improve slowly Developing left lower lobe pneumonia likely community-acquired Acute hypoxic and hypercapnic respiratory failure Severe COPD Mood disorder depression Generalized weakness related to above Plan: Continue BiPAP each night and when necessary during the day Aspiration precaution Broad-spectrum antibiotics Breathing treatments Continue home medications once able to swallow safely Reviewed repeat chest x-ray Further recommendations pending plan of care as per clinical response of the patient Time with Patient: Greater than 30
[2018-03-05 16:58] LABS: Glucose,Whole Blood 139 mg/dL (75-99)
[2018-03-05] MEDS: lamoTRIgine 25 MG TAB PO SCH (19:53)
[2018-03-05 20:59] LABS: Glucose,Whole Blood 181 mg/dL (75-99)
--- NOTE | 2018-03-05 22:08 | PN ---
PROGRESS NOTE DATE OF SERVICE: 03/05/2018. PRESENTING COMPLAINT: Short of breath. INTERVAL HISTORY: This patient is a long-standing smoker, presented with CO2 narcosis, required BiPAP. Several family members are present today. Still on a BiPAP at a setting of 10 and 5. More awake today, answering questions, wanting some food, though still very short of breath at rest. REVIEW OF SYSTEMS: Done for constitutional, cardiovascular, GI, pulmonary; relevant findings as above. CURRENT MEDICATIONS: Reviewed, that include DuoNeb, Solu-Medrol, Zithromax, ceftriaxone. PHYSICAL EXAMINATION: Temperature 99.2, pulse 88, respiratory 22, blood pressure 101/64, pulse ox 97% on BiPAP. GENERAL APPEARANCE: Sitting up. BiPAP in place. EYES: Pupil equal. Conjunctivae pale. NECK: JVD unable to assess. Mass not palpable. Respiratory effort increased, not able to speak in full sentences. LUNGS: Poor air entry, prolonged expiration. Diminished breath sounds. CARDIOVASCULAR: 1st and 2nd sounds. No edema. ABDOMEN: Soft, nontender. Liver and spleen not palpable. PSYCHIATRY: Able to answer questions. NEUROLOGICAL: Moving all 4 limbs. INVESTIGATIONS: White count 10.4, hemoglobin 13.3. Accu-Cheks 116, 171, 139. ASSESSMENT: 1. Pneumonia with possible sepsis present on admission. 2. Acute metabolic encephalopathy from CO2 narcosis on admission with improvement. 3. Acute hypoxic and hypercapnic respiratory failure from advancing COPD, slow to respond. 4. Severe protein-calorie malnutrition, BMI 13.3. 5. Chronic fibromyalgia. 6. Primary osteoarthritis, multiple joints bilateral. 7. Cerebral aneurysm for which patient is being followed as an outpatient. 8. Acute severe chronic obstructive pulmonary disease exacerbation in a current smoker, slow to respond. PLAN: Continue patient on BiPAP, current medications and antibiotics. Care was discussed with the patient's family at the bedside. The patient did change the code status to FULL CODE last night and it is currently the same. We will address this with the patient tomorrow. Will have patient take some shakes. The patient is not doing too good right now. Prognosis is guarded. MMODL / IJN: [id number] /
[2018-03-06] MEDS: IPRATROPIUM-ALBUTEROL 3 ML NEB INHALATION SCH ×7 (00:03→23:32)
[2018-03-06] MEDS: SODIUM CHLORIDE 0.9% 1,000 ML IV SCH ×2 (03:52→08:28)
[2018-03-06 06:16] LABS: Glucose,Whole Blood 126 mg/dL (75-99)
[2018-03-06] MEDS: INSULIN ASPART 100 UNIT/ML 1 ML 10 ML VIAL SQ SCH ×4 (06:23→20:19)
[2018-03-06] MEDS: methylPREDNISolone SOD SUCCI 125 MG/2 ML VIAL IV SCH ×2 (06:47→20:27)
[2018-03-06] MEDS: PANTOPRAZOLE 40 MG TABLET PO SCH ×2 (06:47→20:11)
[2018-03-06] MEDS: BUDESONIDE 1 MG/2 ML NEBU INHALATION SCH ×2 (07:34→19:38)
[2018-03-06] MEDS: ENOXAPARIN 40 MG/0.4 ML SYRINGE SQ SCH (08:28)
[2018-03-06] MEDS: DONEPEZIL 10 MG TAB PO SCH (08:28)
[2018-03-06] MEDS: MEGESTROL 400 MG/10 ML CUP PO SCH (08:29)
[2018-03-06] MEDS: MULTIVITAMINS, THERA 1 EACH TAB PO SCH (08:29)
[2018-03-06] MEDS: PREGABALIN 75 MG CAP PO SCH ×2 (08:29→20:20)
[2018-03-06] MEDS: ASPIRIN 81 MG PO SCH (08:29)
[2018-03-06] MEDS: AZITHROMYCIN 500 MG TAB PO SCH (08:29)
[2018-03-06] MEDS: HYDROcodone/APAP 10-325MG 1 EACH TAB PO PRN ×2 (08:44→20:23)
[2018-03-06] MEDS: MODAFINIL 100 MG TAB PO SCH (09:09)
[2018-03-06 12:00] LABS: Glucose,Whole Blood 132 mg/dL (75-99)
[2018-03-06 13:16] LABS: Hemoglobin A1C 5.7 % (4.0-6.0)
[2018-03-06 17:08] LABS: Glucose,Whole Blood 162 mg/dL (75-99)
--- NOTE | 2018-03-06 19:43 | PN ---
PROGRESS NOTE DATE OF SERVICE: 03/06/2018. PRESENTING COMPLAINT: Short of breath. INTERVAL HISTORY: This long-standing smoker, presenting with CO2 narcosis and severe chronic obstructive pulmonary disease exacerbation. Still requiring a BiPAP on 12/23. Currently no family members were present. The patient is able to tolerate some diet with a straw, Awake, communicating, but still requiring the BiPAP. Minimal cough. No sputum. No fever. No chills. Lying in bed, tired, rundown, though more awake. REVIEW OF SYSTEMS: Done for constitutional, cardiovascular, GI, pulmonary and relevant findings as above. CURRENT MEDICATIONS: Reviewed that include IV ceftriaxone, Zithromax, IV Solu-Medrol, DuoNeb, Pulmicort, IV fluids. PHYSICAL EXAMINATION: VITAL SIGNS: Temperature 97.9, pulse 84, respiratory 20, blood pressure 112/67, pulse ox 99% on BiPAP. GENERAL APPEARANCE: Lying in bed, tired appearing, BiPAP in place. EYES: Pupils equal. Conjunctivae normal. NECK: JVD unable to assess. Mass not palpable. RESPIRATORY: Effort increased. LUNGS: Decreased breath sounds. Prolonged expiration. Not able to speak in full sentences. BiPAP in place. CARDIOVASCULAR: 1st and 2nd sounds normal. No edema. ABDOMEN: Soft, nontender. Liver and spleen not palpable. PSYCHIATRY: Awake, answering questions. Some anxiety present. NEUROLOGICAL: Moving all 4 limbs. INVESTIGATIONS: Accu-Cheks noted 126, 132, 162. ASSESSMENT: 1. Pneumonia with possible sepsis present on admission. 2. Acute metabolic encephalopathy from CO2 narcosis on admission with some improvement. 3. Acute hypoxic and hypercapnic respiratory failure from advancing chronic obstructive pulmonary disease, slow to respond. 4. Severe protein-calorie malnutrition, BMI 13.3. 5. Chronic fibromyalgia. 6. Primary osteoarthritis multiple joints bilateral. 7. Cerebral aneurysm for which patient is being followed as an outpatient. 8. Acute severe chronic obstructive pulmonary disease exacerbation in a current smoker, slow to respond, still requiring BiPAP. 9. CODE STATUS: FULL CODE. PLAN: Continue BiPAP. Did ask the patient to take some shakes with a straw. Other medication and treatment plan is to continue. Change Solu-Medrol to 40 q.8. Prognosis is guarded. Will want to readdress the code status when the patient is able to communicate better hopefully in next day or so. MMODL / IJN: [id number] /
[2018-03-06] MEDS: lamoTRIgine 25 MG TAB PO SCH (20:20)
[2018-03-06 20:26] LABS: Glucose,Whole Blood 193 mg/dL (75-99)
[2018-03-06] MEDS: methylPREDNISolone SOD SUCCI 40 MG/ML 1 ML VIAL IV SCH (23:16)
[2018-03-07] MEDS: IPRATROPIUM-ALBUTEROL 3 ML NEB INHALATION SCH ×6 (03:41→23:11)
[2018-03-07 06:19] LABS: Glucose,Whole Blood 118 mg/dL (75-99)
[2018-03-07] MEDS: PANTOPRAZOLE 40 MG TABLET PO SCH ×2 (06:20→17:15)
[2018-03-07] MEDS: INSULIN ASPART 100 UNIT/ML 1 ML 10 ML VIAL SQ SCH ×4 (06:21→17:18)
[2018-03-07] MEDS: BUDESONIDE 1 MG/2 ML NEBU INHALATION SCH ×2 (08:09→20:02)
[2018-03-07 08:29] LABS: Basophils % (A) 0 %; Eosinophils # (A) 0.1 k/uL (0-0.7); Eosinophils % (A) 1 %; HGB 13.3 gm/dL (11.4-16.0); Hypochromasia Slight; Lymphocytes # (A) 0.7 k/uL (1.0-4.8); Lymphocytes % (A) 7 %; MCH 31.5 pg (25.0-35.0); MCHC 30.8 g/dL (31.0-37.0); MCV 102.1 fL (80.0-100.0); Macrocytosis Slight; Monocytes # (A) 0.5 k/uL (0-1.0); Monocytes % (A) 4 %; Neutrophils # (A) 9.3 k/uL (1.3-7.7); Neutrophils % (A) 87 %; Platelet Count 193 k/uL (150-450); RBC 4.21 m/uL (3.80-5.40); RDW 14.3 % (11.5-15.5); WBC 10.7 k/uL (3.8-10.6)
[2018-03-07 08:34] LABS: Anion Gap 6 mmol/L; Blood Urea Nitrogen 15 mg/dL (7-17); Calcium 9.4 mg/dL (8.4-10.2); Carbon Dioxide 32 mmol/L (22-30); Chloride 102 mmol/L (98-107); Glucose 148 mg/dL (74-99); Potassium 3.5 mmol/L (3.5-5.1); Sodium 140 mmol/L (137-145)
[2018-03-07] MEDS: MULTIVITAMINS, THERA 1 EACH TAB PO SCH (09:11)
[2018-03-07] MEDS: MODAFINIL 100 MG TAB PO SCH (09:11)
[2018-03-07] MEDS: methylPREDNISolone SOD SUCCI 40 MG/ML 1 ML VIAL IV SCH ×3 (09:11→23:15)
[2018-03-07] MEDS: DONEPEZIL 10 MG TAB PO SCH (09:11)
[2018-03-07] MEDS: MEGESTROL 400 MG/10 ML CUP PO SCH (09:12)
[2018-03-07] MEDS: PREGABALIN 75 MG CAP PO SCH ×2 (09:12→20:02)
[2018-03-07] MEDS: AZITHROMYCIN 500 MG TAB PO SCH (09:12)
[2018-03-07] MEDS: ASPIRIN 81 MG PO SCH (09:12)
[2018-03-07] MEDS: ENOXAPARIN 40 MG/0.4 ML SYRINGE SQ SCH (09:13)
--- NOTE | 2018-03-07 10:17 | P.PN ---
Subjective Progress Note Date: 03/06/18 Principal diagnosis: Acute on chronic hypoxic and hypercapnic respiratory failure, altered mental status related to severe acute hypercapnia, history of narcotic use, left lower lobe pneumonia, 03/06/2018, patient seen eval examined during the rounds clinically patient is doing slightly better mental status improved she continue use BiPAP at nighttime and supplemental oxygen during the day she is oriented now able to breathe better radiographic studies as well as laboratory data reviewed with the patient 03/05/2018, patient seen eval reexamined during the rounds clinically slightly better more arousable, remains on broad-spectrum antibiotics breathing treatment tolerating very well reviewed medications reviewed repeat chest x-ray performed earlier this morning reviewed the left lower lobe infiltrate seen previously have improved now would recommend to continue current therapy 62-year-old lean cachectic female with history of end-stage lung disease secondary severe COPD emphysema with prior history of severe hypercapnia found to be more somnolent and lethargic came into emergency department found to have a acute respiratory acidosis patient has been admitted into the hospital on BiPAP with which she responded well and much improved now to give able to arousable at the time of examination, on specific questioning he denies any seizure-like to a loss of consciousness), is still smokes off and on, has been on bronchodilator therapy at home, also has a history of mood disorder depression and chronic pain use a history of dementia Objective - Vital Signs Vital signs: Vital Signs Temp 97.8 F 03/07/18 04:00 Pulse 68 03/07/18 08:30 Resp 20 03/07/18 04:00 BP 130/78 03/07/18 04:00 Pulse Ox 100 03/07/18 04:00 Intake & Output 03/06/18 03/07/18 03/07/18 18:59 06:59 18:59 Intake Total 780 180 Output Total 200 Balance 580 180 Weight 34 kg 34 kg Intake: IV 180 Sodium Chloride 0.9% 1, 180 000 ml @ 60 mls/hr IV . [id number] [facility] Rx#:[id number] Intake, IV Titration 50 Amount cefTRIAXone 1,000 mg In 50 Sodium Chloride 0.9% 50 ml @ 100 mls/hr IVPB Q24HR [facility] Rx#:[id number] Oral 730 Output: Urine 200 - Exam - Constitutional General appearance: cooperative, disheveled, no acute distress - EENT Eyes: PERRLA, poor dentition ENT: hard of hearing Ears: bilateral: normal - Neck Neck: normal ROM Carotids: bilateral: upstroke normal - Respiratory Respiratory: bilateral: diminished, prolonged expiration - Cardiovascular Heart sounds: normal: S1, S2 - Gastrointestinal General gastrointestinal: normal bowel sounds, soft - Neurologic Neurologic: CNII-XII intact - Musculoskeletal Musculoskeletal: generalized weakness, strength equal bilaterally - Psychiatric On deep stimuli does open eyes follow simple commands but goes back to sleep right away Psychiatric: appropriate affect - Labs CBC & Chem 7: 03/07/18 07:57 03/07/18 07:57 Labs: Abnormal Lab Results - Last 24 Hours (Table) 03/06/18 03/06/18 03/06/18 Range/Units 11:33 17:05 20:15 WBC (3.8-10.6) k/uL MCV (80.0-100.0) fL MCHC (31.0-37.0) g/dL Neutrophils # (1.3-7.7) k/uL Lymphocytes # (1.0-4.8) k/uL Carbon Dioxide (22-30) mmol/L Glucose (74-99) mg/dL POC Glucose (mg/dL) 132 H 162 H 193 H (75-99) mg/dL 03/07/18 03/07/18 03/07/18 Range/Units 06:17 07:57 07:57 WBC 10.7 H (3.8-10.6) k/uL MCV 102.1 H (80.0-100.0) fL MCHC 30.8 L (31.0-37.0) g/dL Neutrophils # 9.3 H (1.3-7.7) k/uL Lymphocytes # 0.7 L (1.0-4.8) k/uL Carbon Dioxide 32 H (22-30) mmol/L Glucose 148 H (74-99) mg/dL POC Glucose (mg/dL) 118 H (75-99) mg/dL Microbiology - Last 24 Hours (Table) 03/04/18 13:09 Blood Culture - Preliminary Blood No Growth after 48 hours Assessment and Plan Assessment: Altered mental status related to acute hypercapnia, continued to improve slowly Developing left lower lobe pneumonia likely community-acquired Acute hypoxic and hypercapnic respiratory failure Severe COPD Mood disorder depression Generalized weakness related to above Plan: Continue BiPAP each night and when necessary during the day Supplemental oxygen 1-2 L nasal cannula as tolerated in saturation around 86-88% Aspiration precaution Broad-spectrum antibiotics Breathing treatments Continue home medications once able to swallow safely Reviewed repeat chest x-ray Further recommendations pending plan of care as per clinical response of the patient Time with Patient: Greater than 30
--- NOTE | 2018-03-07 10:19 | P.PN ---
Subjective Progress Note Date: 03/07/18 Principal diagnosis: Acute on chronic hypoxic and hypercapnic respiratory failure, altered mental status related to severe acute hypercapnia, history of narcotic use, left lower lobe pneumonia, 03/07/2018, patient seen evmata examined during the rounds clinically patient has been doing better awake length patient has been on nasal cannula now, last night she use the BiPAP machine mental status is much clearer was back to baseline daughter is present at bedside from respiratory standpoint patient is doing better cough congestion is improved, would recommend to continue antibiotics breathing treatment and steroids for another 24-48 hours, then can be switched to oral 03/06/2018, patient seen evmata examined during the rounds clinically patient is doing slightly better mental status improved she continue use BiPAP at nighttime and supplemental oxygen during the day she is oriented now able to breathe better radiographic studies as well as laboratory data reviewed with the patient 03/05/2018, patient seen evmata reexamined during the rounds clinically slightly better more arousable, remains on broad-spectrum antibiotics breathing treatment tolerating very well reviewed medications reviewed repeat chest x-ray performed earlier this morning reviewed the left lower lobe infiltrate seen previously have improved now would recommend to continue current therapy 62-year-old lean cachectic female with history of end-stage lung disease secondary severe COPD emphysema with prior history of severe hypercapnia found to be more somnolent and lethargic came into emergency department found to have a acute respiratory acidosis patient has been admitted into the hospital on BiPAP with which she responded well and much improved now to give able to arousable at the time of examination, on specific questioning he denies any seizure-like to a loss of consciousness), is still smokes off and on, has been on bronchodilator therapy at home, also has a history of mood disorder depression and chronic pain use a history of dementia Objective - Vital Signs Vital signs: Vital Signs Temp 97.8 F 03/07/18 04:00 Pulse 68 03/07/18 08:30 Resp 20 03/07/18 04:00 BP 130/78 03/07/18 04:00 Pulse Ox 100 03/07/18 04:00 Intake & Output 03/06/18 03/07/18 03/07/18 18:59 06:59 18:59 Intake Total 780 180 Output Total 200 Balance 580 180 Weight 34 kg 34 kg Intake: IV 180 Sodium Chloride 0.9% 1, 180 000 ml @ 60 mls/hr IV . [id number] [facility] Rx#:[id number] Intake, IV Titration 50 Amount cefTRIAXone 1,000 mg In 50 Sodium Chloride 0.9% 50 ml @ 100 mls/hr IVPB Q24HR [facility] Rx#:[id number] Oral 730 Output: Urine 200 - Exam - Constitutional General appearance: cooperative, disheveled, no acute distress - EENT Eyes: PERRLA, poor dentition ENT: hard of hearing Ears: bilateral: normal - Neck Neck: normal ROM Carotids: bilateral: upstroke normal - Respiratory Respiratory: bilateral: diminished, prolonged expiration - Cardiovascular Heart sounds: normal: S1, S2 - Gastrointestinal General gastrointestinal: normal bowel sounds, soft - Neurologic Neurologic: CNII-XII intact - Musculoskeletal Musculoskeletal: generalized weakness, strength equal bilaterally - Psychiatric On deep stimuli does open eyes follow simple commands but goes back to sleep right away Psychiatric: appropriate affect - Labs CBC & Chem 7: 03/07/18 07:57 03/07/18 07:57 Labs: Abnormal Lab Results - Last 24 Hours (Table) 03/06/18 03/06/18 03/06/18 Range/Units 11:33 17:05 20:15 WBC (3.8-10.6) k/uL MCV (80.0-100.0) fL MCHC (31.0-37.0) g/dL Neutrophils # (1.3-7.7) k/uL Lymphocytes # (1.0-4.8) k/uL Carbon Dioxide (22-30) mmol/L Glucose (74-99) mg/dL POC Glucose (mg/dL) 132 H 162 H 193 H (75-99) mg/dL 03/07/18 03/07/18 03/07/18 Range/Units 06:17 07:57 07:57 WBC 10.7 H (3.8-10.6) k/uL MCV 102.1 H (80.0-100.0) fL MCHC 30.8 L (31.0-37.0) g/dL Neutrophils # 9.3 H (1.3-7.7) k/uL Lymphocytes # 0.7 L (1.0-4.8) k/uL Carbon Dioxide 32 H (22-30) mmol/L Glucose 148 H (74-99) mg/dL POC Glucose (mg/dL) 118 H (75-99) mg/dL Microbiology - Last 24 Hours (Table) 03/04/18 13:09 Blood Culture - Preliminary Blood No Growth after 48 hours Assessment and Plan Assessment: Altered mental status related to acute hypercapnia, continued to improve slowly Developing left lower lobe pneumonia likely community-acquired Acute hypoxic and hypercapnic respiratory failure Severe COPD Mood disorder depression Generalized weakness related to above Plan: Continue BiPAP each night and when necessary during the day Supplemental oxygen 1-2 L nasal cannula as tolerated in saturation around 86-88% Aspiration precaution Broad-spectrum antibiotics Breathing treatments Continue home medications once able to swallow safely Reviewed repeat chest x-ray Further recommendations pending plan of care as per clinical response of the patient Time with Patient: Greater than 30
[2018-03-07 11:54] LABS: Glucose,Whole Blood 121 mg/dL (75-99)
[2018-03-07] MEDS: SODIUM CHLORIDE 0.9% 1,000 ML IV SCH (16:11)
[2018-03-07 16:45] LABS: Glucose,Whole Blood 193 mg/dL (75-99)
[2018-03-07] MEDS: HYDROcodone/APAP 10-325MG 1 EACH TAB PO PRN ×2 (17:14→21:02)
[2018-03-07] MEDS: lamoTRIgine 25 MG TAB PO SCH (20:02)
[2018-03-07 21:08] LABS: Glucose,Whole Blood 139 mg/dL (75-99)
--- NOTE | 2018-03-08 00:44 | PN ---
PROGRESS NOTE DATE OF SERVICE: 03/07/2018. PRESENTING COMPLAINT: Short of breath. INTERVAL HISTORY: This is a patient presented with CO2 narcosis, severe chronic obstructive pulmonary disease exacerbation. Patient is smoker on a Venti mask today. Breathing is better. Did tolerate some diet, wanted to sit up on a chair. Minimal cough. No sputum. No fever. REVIEW OF SYSTEMS: Done for constitutional, cardiovascular, GI, pulmonary; relevant findings as above. CURRENT MEDICATIONS: Reviewed that includes DuoNeb, IV Solu-Medrol and IV ceftriaxone. PHYSICAL EXAMINATION: Temperature 98, pulse 98, respiration 20, blood pressure 100/66, pulse ox 98% on 6 L. GENERAL APPEARANCE: Lying in bed, less short of breath. EYES: Pupils equal. Conjunctivae normal. NECK: JVD unable to assess. Mass not palpable. RESPIRATORY: Effort increased. LUNGS: Decreased breath sounds, prolonged expiration. CARDIOVASCULAR: First and seconds sounds, no edema. ABDOMEN: Soft, nontender. Liver and spleen not palpable. PSYCHIATRY: Alert and oriented x3. Less anxious. INVESTIGATIONS: White count 10.7 potassium 3.5. Accu-Cheks are noted. ASSESSMENT: 1. Pneumonia with possible sepsis present on admission. 2. Acute metabolic encephalopathy with CO2 narcosis on admission with clinical improvement. 3. Acute hypoxic and hypercapnic respiratory failure from advancing COPD. 4. Severe protein-calorie malnutrition with BMI 13.3. 5. Chronic fibromyalgia. 6. Primary osteoarthritis in multiple joints bilateral. 7. Cerebral aneurysm for which patient is being followed as an outpatient. 8. Acute severe chronic obstructive pulmonary disease exacerbation in a current smoker. The patient is on a BiPAP this morning but doing better. 9. CODE STATUS: FULL CODE. PLAN: Continue medication and treatment. The patient started to turn around the corner. Continue treatment plan. I will talk to the patient and family about the code status as the patient is relatively more stable. MMODL / IJN: [id number] /
[2018-03-08] MEDS: IPRATROPIUM-ALBUTEROL 3 ML NEB INHALATION SCH ×5 (03:06→19:46)
[2018-03-08] MEDS: SODIUM CHLORIDE 0.9% 1,000 ML IV SCH ×2 (05:04→21:19)
[2018-03-08 05:55] LABS: Glucose,Whole Blood 111 mg/dL (75-99)
[2018-03-08] MEDS: INSULIN ASPART 100 UNIT/ML 1 ML 10 ML VIAL SQ SCH ×4 (06:07→21:22)
[2018-03-08] MEDS: HYDROcodone/APAP 10-325MG 1 EACH TAB PO PRN ×4 (06:18→21:22)
[2018-03-08] MEDS: PANTOPRAZOLE 40 MG TABLET PO SCH ×2 (06:18→17:09)
[2018-03-08 08:21] LABS: Basophils % (A) 0 %; Eosinophils % (A) 0 %; HCT 42.3 % (34.0-46.0); HGB 13.1 gm/dL (11.4-16.0); Lymphocytes # (A) 0.6 k/uL (1.0-4.8); Lymphocytes % (A) 8 %; MCH 30.9 pg (25.0-35.0); MCV 99.6 fL (80.0-100.0); Mean Platelet Volume 7.5; Monocytes # (A) 0.4 k/uL (0-1.0); Monocytes % (A) 6 %; Neutrophils # (A) 5.7 k/uL (1.3-7.7); Neutrophils % (A) 84 %; Platelet Count 199 k/uL (150-450); RBC 4.25 m/uL (3.80-5.40); RDW 14.1 % (11.5-15.5); WBC 6.8 k/uL (3.8-10.6)
[2018-03-08 08:39] LABS: Anion Gap 7 mmol/L; Blood Urea Nitrogen 20 mg/dL (7-17); Calcium 9.2 mg/dL (8.4-10.2); Carbon Dioxide 33 mmol/L (22-30); Chloride 100 mmol/L (98-107); Glucose 106 mg/dL (74-99); Potassium 4.1 mmol/L (3.5-5.1); Sodium 140 mmol/L (137-145)
[2018-03-08] MEDS: BUDESONIDE 1 MG/2 ML NEBU INHALATION SCH ×2 (08:41→19:46)
[2018-03-08] MEDS: MODAFINIL 100 MG TAB PO SCH (08:51)
[2018-03-08] MEDS: DONEPEZIL 10 MG TAB PO SCH (08:51)
[2018-03-08] MEDS: ASPIRIN 81 MG PO SCH (08:51)
[2018-03-08] MEDS: AZITHROMYCIN 500 MG TAB PO SCH (08:51)
[2018-03-08] MEDS: ENOXAPARIN 40 MG/0.4 ML SYRINGE SQ SCH (08:51)
[2018-03-08] MEDS: MEGESTROL 400 MG/10 ML CUP PO SCH (08:51)
[2018-03-08] MEDS: PREGABALIN 75 MG CAP PO SCH ×2 (08:51→19:38)
[2018-03-08] MEDS: methylPREDNISolone SOD SUCCI 40 MG/ML 1 ML VIAL IV SCH ×2 (08:52→16:03)
[2018-03-08 11:20] LABS: Glucose,Whole Blood 209 mg/dL (75-99)
[2018-03-08] MEDS: MULTIVITAMINS, THERA 1 EACH TAB PO SCH (11:31)
[2018-03-08 16:36] LABS: Glucose,Whole Blood 170 mg/dL (75-99)
[2018-03-08] MEDS ORDERED: NICOTINE POLACRILEX 2 MG GUM BUCCAL PRN (16:53)
[2018-03-08] MEDS: NICOTINE 21MG/24HR PATCH TRANSDERM SCH (17:09)
[2018-03-08] MEDS: lamoTRIgine 25 MG TAB PO SCH (19:38)
[2018-03-08 21:21] LABS: Glucose,Whole Blood 179 mg/dL (75-99)
--- NOTE | 2018-03-08 22:53 | PN ---
PROGRESS NOTE DATE OF SERVICE: 03/08/2018. PRESENTING COMPLAINT: Short of breath. INTERVAL HISTORY: Patient presented with CO2 narcosis, severe chronic obstructive pulmonary disease exacerbation. Doing much better today, now down to 2 L. Did tolerate a diet. Did sit up on a chair and took a few steps. Family had been visiting earlier. Breathing is getting better. REVIEW OF SYSTEMS: Done for constitutional, cardiovascular, GI, pulmonary; relevant findings as above. CURRENT MEDICATIONS: Reviewed, that include DuoNeb, Zithromax, IV Solu-Medrol, normal saline. PHYSICAL EXAMINATION: VITAL SIGNS: Temperature 98.5 pulse 96, respiratory rate 18, blood pressure 100/66, pulse ox 96% on 2 L. GENERAL APPEARANCE: Lying in bed, more comfortable, breathing better. EYES: Pupils equal. Conjunctivae normal. NECK: JVD not raised. Mass not palpable. Respiratory effort increased. LUNGS: Improved air entry. CARDIOVASCULAR: 1st and 2nd sounds. No edema. ABDOMEN: Soft, nontender. Liver and spleen not palpable. PSYCHIATRY: Alert and oriented x3. Less anxious-appearing. INVESTIGATIONS: White count 6.8, hemoglobin 13.1 potassium 4.1, BUN 20, creatinine 0.46. Accu-Cheks are noted. ASSESSMENT: 1. Pneumonia with possible sepsis present admission with good clinical response. 2. Acute metabolic encephalopathy with CO2 narcosis admission with good clinical improvement. 3. Acute hypoxic and hypercapnic respiratory failure from advancing COPD, improving. 4. Severe protein-calorie malnutrition BMI 13.3. 5. Chronic fibromyalgia. 6. Primary osteoarthritis multiple joints bilateral. 7. Cerebral aneurysm for which patient is being followed as an outpatient. 8. Acute severe chronic obstructive pulmonary disease exacerbation in a current smoker. Doing better. PLAN: Continue medication and treatment plan. The patient is doing better. We will switch the patient to oral prednisone in the morning. Overall doing much better. ADVANCED CARE PLANNING: I had a long discussion with the patient and nurse was present, about the patient's overall poor pulmonary status in the event respiratory was to shutdown down. I did talk to her about the pros and cons of ventilator. At this point she does understand that condition is rather advanced and she decided to proceed with code status DO NOT RESUSCITATE. She had earlier also discussed this with the daughters in the morning it seems, who now confirm the same. This will be changed. More than 35 minutes were spent on this aspect of the case. MMODL / IJN: [id number] /
[2018-03-09] MEDS: IPRATROPIUM-ALBUTEROL 3 ML NEB INHALATION SCH ×5 (00:34→16:30)
[2018-03-09] MEDS: HYDROcodone/APAP 10-325MG 1 EACH TAB PO PRN ×3 (04:42→17:47)
[2018-03-09 06:12] LABS: Glucose,Whole Blood 76 mg/dL (75-99)
[2018-03-09] MEDS: INSULIN ASPART 100 UNIT/ML 1 ML 10 ML VIAL SQ SCH ×3 (06:41→17:46)
[2018-03-09] MEDS: PANTOPRAZOLE 40 MG TABLET PO SCH ×2 (07:02→17:46)
[2018-03-09 07:04] LABS: Basophils % (A) 0 %; Eosinophils % (A) 0 %; HCT 41.3 % (34.0-46.0); HGB 13.2 gm/dL (11.4-16.0); Lymphocytes % (A) 12 %; MCH 31.8 pg (25.0-35.0); MCHC 31.9 g/dL (31.0-37.0); MCV 99.8 fL (80.0-100.0); Mean Platelet Volume 7.6; Monocytes # (A) 0.7 k/uL (0-1.0); Monocytes % (A) 9 %; Neutrophils # (A) 6.1 k/uL (1.3-7.7); Neutrophils % (A) 75 %; Platelet Count 208 k/uL (150-450); RBC 4.14 m/uL (3.80-5.40)
[2018-03-09 07:26] LABS: Anion Gap 4 mmol/L; Blood Urea Nitrogen 31 mg/dL (7-17); Carbon Dioxide 34 mmol/L (22-30); Chloride 102 mmol/L (98-107); Glucose 80 mg/dL (74-99); Potassium 4.5 mmol/L (3.5-5.1); Sodium 140 mmol/L (137-145)
[2018-03-09] MEDS: BUDESONIDE 1 MG/2 ML NEBU INHALATION SCH (08:10)
[2018-03-09] MEDS ORDERED: predniSONE 20 MG TAB PO SCH (09:00)
[2018-03-09] MEDS: MODAFINIL 100 MG TAB PO SCH (09:36)
[2018-03-09] MEDS: DONEPEZIL 10 MG TAB PO SCH (09:36)
[2018-03-09] MEDS: ASPIRIN 81 MG PO SCH (09:36)
[2018-03-09] MEDS: PREGABALIN 75 MG CAP PO SCH (09:37)
[2018-03-09] MEDS: ENOXAPARIN 40 MG/0.4 ML SYRINGE SQ SCH (09:39)
[2018-03-09] MEDS: MEGESTROL 400 MG/10 ML CUP PO SCH (09:44)
[2018-03-09 11:21] LABS: Glucose,Whole Blood 98 mg/dL (75-99)
[2018-03-09 14:10] VITALS: BMI 15.7
[2018-03-09 16:25] LABS: Glucose,Whole Blood 142 mg/dL (75-99)
[2018-03-09 16:33] VITALS: RESP 18
[2018-03-09] MEDS: NICOTINE 21MG/24HR PATCH TRANSDERM SCH (17:41)
[2018-03-09] MEDS: MULTIVITAMINS, THERA 1 EACH TAB PO SCH (17:46)
[2018-03-09 18:32] VITALS: BP 114/76; PULSE 96; TEMP 98
== END 2018-03-09 18:32 | disposition home health service (06) | DRG 871 ==
LOC: EC 12:55 → 3SCARD 16:02
PROVIDERS: ADMIT Hospitalist; ATTEND Hospitalist
PROC: 5A09557 Assistance with Respiratory Ventilation, Greater than 96 Consecutive Hours, Continuous Positive Airway Pressure (ICD-10-PCS; principal; 2018-03-04)
DX: A41.9 Sepsis, unspecified organism (principal); J96.21 Acute and chronic respiratory failure with hypoxia; J96.22 Acute and chronic respiratory failure with hypercapnia; E43 Unspecified severe protein-calorie malnutrition; G93.41 Metabolic encephalopathy; J18.1 Lobar pneumonia, unspecified organism; R64 Cachexia; E87.2 Acidosis; Z68.1 Body mass index [BMI] 19.9 or less, adult; R65.20 Severe sepsis without septic shock; I67.1 Cerebral aneurysm, nonruptured; Z66 Do not resuscitate; G35 Multiple sclerosis; J43.9 Emphysema, unspecified; F03.90 Unspecified dementia, unspecified severity, without behavioral disturbance, psychotic disturbance, mood disturbance, and anxiety; F32.9 Major depressive disorder, single episode, unspecified; K21.9 Gastro-esophageal reflux disease without esophagitis; M79.7 Fibromyalgia; K58.9 Irritable bowel syndrome, unspecified; M19.91 Primary osteoarthritis, unspecified site; G89.29 Other chronic pain; H91.90 Unspecified hearing loss, unspecified ear; F17.210 Nicotine dependence, cigarettes, uncomplicated; Z71.6 Tobacco abuse counseling; Z79.82 Long term (current) use of aspirin; Z99.81 Dependence on supplemental oxygen; Z79.818 Long term (current) use of other agents affecting estrogen receptors and estrogen levels; Z79.899 Other long term (current) drug therapy; Z98.51 Tubal ligation status; Z80.0 Family history of malignant neoplasm of digestive organs; Z80.1 Family history of malignant neoplasm of trachea, bronchus and lung
CPT/HCPCS: 36415; 36600; 70450; 71045; 80048; 80053; 80306; 81001; 82550; 82553; 82805; 83036; 84484; 85025; 85610; 85730; 87040; 93005; 94640; 94660; 94760; 96361; 96365; 96375; 99291

== ENCOUNTER → 2018-04-12 | Outpatient (CLI) | payer MEDICARE, OTHER | END | disposition home or self-care (01) | LOC: LABWHC1 07:55 | PROVIDERS: ATTEND Nurse Practitioner Acute Care | DX: Z51.81 Encounter for therapeutic drug level monitoring (principal) | CPT/HCPCS: 36415; 82565; 84520 ==

== ENCOUNTER → 2018-05-22 | Outpatient (CLI) | payer MEDICARE, OTHER ==
[~2018-05-22] MED LIST changes: +DENOSUMAB 60 MG/ML 1 ML SYRINGE SQ NR; -DENOSUMAB 60 MG/ML 1 ML SYRINGE SQ ONE
[2018-05-22 10:27] VITALS: BP 111/66; PULSE 88; RESP 16; TEMP 97.4
== END ==
LOC: PROCWHC3 10:16
PROVIDERS: ATTEND Family Medicine
DX: M81.0 Age-related osteoporosis without current pathological fracture (principal)
CPT/HCPCS: 96372; J0897

== ENCOUNTER → 2018-07-14 | Outpatient (CLI) | payer MEDICARE, OTHER ==
[2018-07-14 11:24] LABS: HGB 13.8 gm/dL (11.4-16.0); MCH 31.5 pg (25.0-35.0); MCV 98.2 fL (80.0-100.0); Mean Platelet Volume 7.9; Platelet Count 212 k/uL (150-450); RBC 4.38 m/uL (3.80-5.40); RDW 15.4 % (11.5-15.5); WBC 3.3 k/uL (3.8-10.6)
[2018-07-14 13:47] LABS: Basophils # (M) 0.03 k/uL (0-0.2); Eosinophils # (M) 0.03 k/uL (0-0.7); Lymphocytes # (M) 0.56 k/uL (1.0-4.8); Neutrophils # (M) 2.18 k/uL (1.3-7.7); Neutrophils % (M) 66 %; Nucleated Red Blood Cells 0 /100 WBC (0-0); Total Cells Counted 100
[2018-07-14 13:49] LABS: Anisocytosis (M) Present
[2018-07-14 17:50] LABS: Vitamin D 25 Hydroxy 21.2 ng/mL (30.0-100.0)
[2018-07-14 17:51] LABS: Albumin 4.4 g/dL (3.80-4.90); Albumin/Globulin Ratio 2.93 (1.60-3.17); Anion Gap 7.3 mmol/L (4.00-12.00); Calcium 9.1 mg/dL (8.7-10.3); Carbon Dioxide 31.7 mmol/L (21.6-31.8); Globulin 1.5 g/dL (1.6-3.3); Total Bilirubin 0.1 mg/dL (0.3-1.2); Total Protein 5.9 g/dL (6.2-8.2)
== END | disposition home or self-care (01) ==
LOC: LABWHC1 10:10
PROVIDERS: ATTEND Nurse Practitioner Acute Care
DX: E55.9 Vitamin D deficiency, unspecified (principal); G35 Multiple sclerosis
CPT/HCPCS: 36415; 80053; 82306; 82607; 85025

== ENCOUNTER → 2018-10-23 | Outpatient (CLI) | payer MEDICARE, OTHER ==
--- NOTE | 2018-10-23 13:14 | XR ---
EXAMINATION TYPE: XR hand complete RT DATE OF EXAM: 10/23/2018 COMPARISON: NONE HISTORY: Pain TECHNIQUE: Three views are submitted. FINDINGS: The osseous structures are intact. The arthropathy of the first MCP and first carpal metacarpal join t. Narrowing of the DIP joint of the first and second digit. IMPRESSION: 1. No definite acute fracture or dislocation if symptoms persist, follow-up study in 7 to 10 days wo uld be suggested
--- NOTE | 2018-10-23 13:15 | XR ---
EXAMINATION TYPE: XR wrist complete RT DATE OF EXAM: 10/23/2018 COMPARISON: NONE HISTORY: Pain TECHNIQUE: Four views submitted. FINDINGS: The osseous structures are intact. Arthropathy of the first carpal metacarpal joint. IMPRESSION: 1. No definite acute fracture or dislocation if symptoms persist, follow-up study in 7 to 10 days wo uld be suggested
== END | disposition home or self-care (01) ==
LOC: RADXRMAIN 12:49
PROVIDERS: ATTEND Family Medicine
DX: M79.641 Pain in right hand (principal)

== ENCOUNTER → 2018-11-23 | Outpatient (CLI) | payer MEDICARE, OTHER ==
[~2018-11-23] MED LIST changes: -DENOSUMAB 60 MG/ML 1 ML SYRINGE SQ NR; +DENOSUMAB 60 MG/ML 1 ML SYRINGE SQ ONE
[2018-11-23 10:43] VITALS: BP 124/81; PULSE 78; RESP 16; TEMP 97.7
== END | disposition home or self-care (01) ==
LOC: PROCWHC3 10:29
PROVIDERS: ATTEND Family Medicine
DX: M81.0 Age-related osteoporosis without current pathological fracture (principal)
CPT/HCPCS: 96372; J0897

== ENCOUNTER → 2019-03-16 | Outpatient (CLI) | payer MEDICARE, OTHER ==
--- NOTE | 2019-03-22 10:11 | MM ---
Reason for exam: screening (asymptomatic). Last mammogram was performed 1 year and 4 months ago. History: Patient is postmenopausal. Cyst aspiration of the left breast. Physical Findings: A clinical breast exam by your physician is recommended on an annual basis and results should be correlated with mammographic findings. MG 3D Screening Mammo W/Cad Bilateral CC and MLO view(s) were taken. Prior study comparison: November 02, 2017, bilateral MG 3d screening mammo w/cad. December 16, 2014, bilateral MG screening mammo w CAD. The breast tissue is heterogeneously dense. This may lower the sensitivity of mammography. No suspicious abnormality. No significant changes when compared with prior studies. ASSESSMENT: Negative, BI-RAD 1 RECOMMENDATION: Routine screening mammogram of both breasts in 1 year.
== END | disposition home or self-care (01) ==
LOC: RADMAMWWP 12:57
PROVIDERS: ATTEND Family Medicine
DX: Z12.31 Encounter for screening mammogram for malignant neoplasm of breast (principal)
CPT/HCPCS: 77063; 77067

== ENCOUNTER → 2019-03-22 | Outpatient (CLI) | payer MEDICARE, OTHER ==
--- NOTE | 2019-03-22 15:16 | BD ---
EXAMINATION TYPE: Axial Bone Density DATE OF EXAM: 03/22/2019 COMPARISON: 05/16/2013 CLINICAL HISTORY: M [age] Height: 57 inches Weight: 73 pounds FRAX RISK QUESTIONS: Alcohol (3 or more units per day): no Family History (Parent hip fracture): patient does not think so Glucocorticoids (More than 3mos): yes (Ex: prednisone, prednisolone, methylprednisolone, dexamethasone, and hydrocortisone). History of Fracture in Adulthood: yes Secondary Osteoporosis: 1. Type 1 Diabetes: no 2. Hyperthyroidism: no 3. Menopause before 45: no 4. Malnutrition: unsure 5. Chronic liver disease: no Rheumatoid Arthritis: yes, in feet Current Tobacco Use: yes RISK FACTORS HISTORY OF: Family History of Osteoporosis: unsure Active: yes Diet low in dairy products/other sources of calcium: no Postmenopausal woman: yes Take estrogen and/or progesterone medications: no Lost more than 2 inches in height since high school: unsure Frequent falls: no Poor Health: somewhat Hyperparathyroidism: unsure Adrenal Insufficiency: unsure MEDICATIONS: Prednisone or other steroids: yes, breathing treatments four times a day Thyroid Medications: no Osteoporosis Medications: no Additional Medications: meds for MS, dementia, pain meds, stomach meds Additional History: MS, emphysema; tailbone fx EXAM MEASUREMENTS: Bone mineral densitometry was performed using the Flexis System. Bone mineral density as measured about the Lumbar spine is: ----- L1-L4(G/cm2): 1.273 T Score Values are as follows: ----- L2: -1.3 ----- L3: 3.1 ----- L4: 3.0 ----- L1-L4: -.8 Bone mineral density has: Increased 38.1% since study of: 05/16/2013 Bone mineral density about the R hip (g/cm2): 0.709 Bone mineral density about the L hip (g/cm2): 0.714 T Score values are as follows: -----R Neck: -2.4 -----L Neck: -2.3 -----R Total: -2.7 -----L Total: -2.6 Bone mineral density has: Decreased -4.8% since study of: 05/16/2013 IMPRESSION: Osteoporosis (T Score less than -2.5). There is increased fracture risk and therapy is usually indicated based on age. Re-Screen 1-2 years. NOTE: T-SCORE=SD OF THE YOUNG ADULT MEAN.
== END | disposition home or self-care (01) ==
LOC: RADBDWWP 13:44
PROVIDERS: ATTEND Family Medicine
DX: M81.0 Age-related osteoporosis without current pathological fracture (principal)
CPT/HCPCS: 77080

== ENCOUNTER → 2020-01-25 | Outpatient (CLI) | payer MEDICARE, OTHER ==
[2020-01-25 15:43] LABS: HGB 14.7 gm/dL (11.4-16.0); MCH 31.7 pg (25.0-35.0); MCHC 30.6 g/dL (31.0-37.0); MCV 103.8 fL (80.0-100.0); Macrocytosis Slight; Mean Platelet Volume 8.1; RBC 4.62 m/uL (3.80-5.40); RDW 14.2 % (11.5-15.5); WBC 3.2 k/uL (3.8-10.6)
[2020-01-25 16:07] LABS: Band Neutrophils % 3 %; Eosinophils # (M) 0.03 k/uL (0-0.7); Large Platelets Present; Lymphocytes # (M) 0.48 k/uL (1.0-4.8); Monocytes # (M) 0.42 k/uL (0-1.0); Neutrophils % (M) 68 %; Nucleated Red Blood Cells 0 /100 WBC (0-0); Platelet Count 227 k/uL (150-450); Total Cells Counted 100
[2020-01-26 01:01] LABS: African American GFR (CKD) 91.6 (60.0-200.0); Albumin 4.6 g/dL (3.80-4.90); Albumin/Globulin Ratio 2.71 (1.60-3.17); Anion Gap 4.5 mmol/L (4.00-12.00); BUN/Creat Ratio 32.5 Ratio (12.00-20.00); Calcium 9.2 mg/dL (8.7-10.3); Carbon Dioxide 34.5 mmol/L (21.6-31.8); Globulin 1.7 g/dL (1.6-3.3); Magnesium 2.1 mg/dL (1.5-2.4); Potassium 4.5 mmol/L (3.5-5.5); Total Bilirubin 0.2 mg/dL (0.3-1.2); Total Protein 6.3 g/dL (6.2-8.2)
== END ==
LOC: LABWHC1 14:56
PROVIDERS: ATTEND Nurse Practitioner Family
DX: G35 Multiple sclerosis (principal)
CPT/HCPCS: 36415; 80053; 82306; 83735; 85025

== ENCOUNTER → 2020-04-23 | Outpatient (CLI) | payer MEDICARE, OTHER ==
[2020-04-23 20:17] LABS: Basophils # (A) 0.04 X 10*3/uL (0.00-0.10); Basophils % (A) 1.1 %; Eosinophils # (A) 0.03 X 10*3/uL (0.04-0.35); Eosinophils % (A) 0.8 %; HGB 13.5 g/dL (12.0-15.0); Lymphocytes # (A) 0.28 X 10*3/uL (0.90-5.00); Lymphocytes % (A) 7.4 %; MCH 32.5 pg (27.0-32.0); MCHC 32.1 g/dL (32.0-37.0); MCV 101.2 fL (80.0-97.0); Mean Platelet Volume 10.9 fL (9.5-12.2); Monocytes # (A) 0.55 X 10*3/uL (0.20-1.00); Monocytes % (A) 14.5 %; Neutrophils # (A) 2.89 X 10*3/uL (1.80-7.70); Neutrophils % (A) 75.9 %; Platelet Count 215 X 10*3/uL (140-440); RBC 4.15 X 10*6/uL (4.10-5.20); RDW 14.7 % (11.5-14.5)
== END | disposition home or self-care (01) ==
LOC: LABWHC1 14:52
PROVIDERS: ATTEND Nurse Practitioner Family
DX: E55.9 Vitamin D deficiency, unspecified (principal); Z51.81 Encounter for therapeutic drug level monitoring
CPT/HCPCS: 36415; 82306; 85025

== ENCOUNTER → 2020-09-03 | Outpatient (CLI) | payer MEDICARE, OTHER ==
--- NOTE | 2020-09-03 14:20 | XR ---
Left ankle HISTORY: Pain, trauma 3 views of the left ankle There is overlying artifact. Bone mineralization is reduced. Joint spaces and alignment are maintaine d. No significant soft tissue swelling. IMPRESSION: No fracture or dislocation.
== END | disposition home or self-care (01) ==
LOC: RADXRMAIN 12:18
PROVIDERS: ATTEND Family Medicine
DX: M25.572 Pain in left ankle and joints of left foot (principal); S99.912A Unspecified injury of left ankle, initial encounter

== ENCOUNTER 2021-03-24 17:50 | Inpatient (IN) | payer MEDICARE, OTHER ==
[2021-03-24] MEDS ORDERED: DEXTROSE 50% SYRINGE 50 ML IVP STA (17:57)
[2021-03-24] MEDS ORDERED: DEXTROSE 5%-0.45% NACL 1,000 ML IV ONE (17:58)
[2021-03-24] MEDS ORDERED: ALBUTEROL HFA INHALER INHALATION STA (17:58)
[2021-03-24 18:00] LABS: Glucose,Whole Blood 35 mg/dL (75-99)
--- NOTE | 2021-03-24 18:03 | ED ---
General Adult HPI - General Stated complaint: altered mental status Time Seen by Provider: 03/24/21 17:57 Source: patient, EMS Mode of arrival: EMS Limitations: altered mental status, physical limitation - History of Present Illness Initial comments: Patient is a pleasant 65-year-old female presenting to the emergency department with altered mental status. Patient reportedly is been lying in bed for the past week. Family checked on patient today and found her altered. Patient is a poor historian and provides little history. Patient does not have specific complaints. EMS has concerns for blood sugar of 58 on arrival. They found patient less responsive. - Related Data Home Medications Medication Instructions Recorded Confirmed Hydrocodone/Acetaminophen 1 tab PO BID 09/03/13 03/24/21 [Hydrocodone/Acetaminophen 10-325] Pregabalin [Lyrica] 150 mg PO TID 09/03/13 03/24/21 Donepezil [Aricept] 10 mg PO DAILY 07/27/17 03/24/21 Modafinil [Provigil] 100 mg PO BID 07/27/17 03/24/21 Omeprazole [PriLOSEC] 20 mg PO AC-BID 07/27/17 03/24/21 lamoTRIgine [LaMICtal] 25 mg PO HS 07/27/17 03/24/21 Ipratropium-Albuterol Nebulize 3 ml INHALATION RT-QID 03/04/18 03/24/21 [Duoneb 0.5 mg-3 mg/3 ml Soln] Albuterol Sulfate [Albuterol 2 puff PO RT-Q4H PRN 03/24/21 03/24/21 Sulfate Hfa] Butalb/APAP/Caff 50-325-40Mg 1 tab PO Q8H PRN 03/24/21 03/24/21 [Fioricet 50-325-40] Loperamide [Imodium] 2 mg PO TID PRN 03/24/21 03/24/21 Memantine HCl 10 mg PO BID 03/24/21 03/24/21 Morphine Sulfate [Ms Contin] 30 mg PO BID 03/24/21 03/24/21 Naproxen 500 mg PO BID PRN 03/24/21 03/24/21 Ondansetron HCl [Zofran] 2 mg PO Q6H PRN 03/24/21 03/24/21 Allergies Allergy/AdvReac Type Severity Reaction Status Date / Time No Known Allergies Allergy Verified 03/24/21 19:15 Review of Systems ROS Statement: Those systems with pertinent positive or pertinent negative responses have been documented in the HPI. ROS Other: All systems not noted in ROS Statement are negative. Constitutional: Denies: fever Eyes: Denies: eye pain ENT: Denies: ear pain Respiratory: Denies: cough Cardiovascular: Denies: chest pain Endocrine: Denies: fatigue Gastrointestinal: Denies: abdominal pain Genitourinary: Denies: urgency Musculoskeletal: Denies: back pain Skin: Denies: rash Neurological: Reports: as per HPI. Denies: weakness Past Medical History Past Medical History: COPD, Dementia, Fibromyalgia, GERD/Reflux, Memory Impairment, Osteoarthritis (OA) Additional Past Medical History / Comment(s): emphysema, irritable bowels, degenerative disc dx neck and back, MS, sm aneurysm in rt [facility] (dr. pimentel) History of Any Multi-Drug Resistant Organisms: None Reported Past Surgical History: Orthopedic Surgery, Tubal Ligation Additional Past Surgical History / Comment(s): right shoulder surgery. colonoscopy/polys benign, egd w/bx neg Past Anesthesia/Blood Transfusion Reactions: No Reported Reaction Past Psychological History: Anxiety, Depression Additional Psychological History / Comment(s): pt lives with boyfriend, is independant. no driving takes bus or family takes. has nebulizer Past Alcohol Use History: None Reported Additional Past Alcohol Use History / Comment(s): started smoking at age 18 smokes 1ppd Past Drug Use History: None Reported - Past Family History Mother Family Medical History: Cancer Additional Family Medical History / Comment(s): liver/pancreastic cancer Father Family Medical History: Cancer Additional Family Medical History / Comment(s): lung cancer General Exam Limitations: altered mental status General appearance: alert, cachectic Head exam: Present: normocephalic Eye exam: Present: normal appearance, PERRL, EOMI Neck exam: Present: normal inspection Respiratory exam: Present: wheezes, decreased breath sounds Cardiovascular Exam: Present: regular rate, normal rhythm GI/Abdominal exam: Present: soft. Absent: tenderness Extremities exam: Present: normal inspection Neurological exam: Present: alert, altered, other (Limited ability to follow commands). Absent: motor sensory deficit Expanded Neurological exam: Present: protecting the airway Patient oriented to: Present: person. Absent: place, time Cranial nerves: EOM's Intact: Normal Motor strength exam: RUE: 5, LUE: 5, RLE: 5, LLE: 5 Eye Response: (4) open spontaneously Motor Response: (6) obeys commands (At times) Verbal Response: (4) confused conversation Psychiatric exam: Present: normal affect, normal mood Skin exam: Present: normal color Course Vital Signs 03/24/21 03/24/21 17:51 18:08 Temperature 98.1 F Pulse Rate 97 93 Respiratory 26 H 20 Rate Blood Pressure 112/87 127/78 O2 Sat by Pulse 97 100 Oximetry - Reevaluation(s) Reevaluation #1: 03/24/21 19:43 Patient reevaluated and somewhat improved. Patient is more alert and more talkative. Family is present and updated. 03/24/21 19:49 Case was discussed with practitioner Olivia, who will admit covering for Dr. Adkins, who admits for Dr. Natarajan. 03/24/21 19:50 I still have concern for COVID-19 disease despite negative test. There is concern for pneumonia and patient does meet sepsis criteria diagnosed at 1945. A culture and lactic acid and IV antibiotics will be ordered. EKG Findings - EKG Comments: EKG Findings:: Sinus rhythm with rate of 98. GA 1:30. QRS 86. QT 366. QTc 467. Normal axis. Atrial enlargement. No acute ST change. Procedures - ABG Interpretation Ph: 7.27 PCO2: 69.8 PO2: 290 Interpretation: respiratory acidosis Medical Decision Making - Medical Decision Making Heparin held at this time secondary to INR of 2.1 - Lab Data Result diagrams: 03/24/21 18:07 03/24/21 18:07 Lab Results 03/24/21 03/24/21 03/24/21 Range/Units 17:54 18:06 18:07 WBC 17.7 H (3.8-10.6) k/uL RBC 4.54 (3.80-5.40) m/uL Hgb 14.4 (11.4-16.0) gm/dL Hct 47.7 H (34.0-46.0) % MCV 105.0 H (80.0-100.0) fL MCH 31.8 (25.0-35.0) pg MCHC 30.2 L (31.0-37.0) g/dL RDW 15.0 (11.5-15.5) % Plt Count 297 (150-450) k/uL MPV 9.2 Neutrophils % 92 % Lymphocytes % 2 % Monocytes % 5 % Eosinophils % 0 % Basophils % 0 % Neutrophils # 16.2 H (1.3-7.7) k/uL Lymphocytes # 0.4 L (1.0-4.8) k/uL Monocytes # 0.8 (0-1.0) k/uL Eosinophils # 0.0 (0-0.7) k/uL Basophils # 0.1 (0-0.2) k/uL Hypochromasia Marked Macrocytosis Moderate PT (9.0-12.0) sec INR (<1.2) APTT (22.0-30.0) sec Sample Site ABG pH (7.35-7.45) ABG pCO2 (35-45) mmHg ABG pO2 (83-108) mmHg ABG HCO3 (21-25) mmol/L ABG Total CO2 (19-24) mmol/L ABG O2 Saturation (94-97) % ABG Base Excess mmol/L Rubio Test FiO2 % Sodium (137-145) mmol/L Potassium (3.5-5.1) mmol/L Chloride (98-107) mmol/L Carbon Dioxide (22-30) mmol/L Anion Gap mmol/L BUN (7-17) mg/dL Creatinine (0.52-1.04) mg/dL Est GFR (CKD-EPI)AfAm (>60 ml/min/1.73 sqM) Est GFR (CKD-EPI)NonAf (>60 ml/min/1.73 sqM) Glucose (74-99) mg/dL POC Glucose (mg/dL) 35 L 113 H (75-99) mg/dL POC Glu Risk Professional ID Ford, Shira Ford, Shira Calcium (8.4-10.2) mg/dL Total Bilirubin (0.2-1.3) mg/dL AST (14-36) U/L ALT (4-34) U/L Alkaline Phosphatase (38-126) U/L Creatine Kinase (30-135) U/L Troponin I (0.000-0.034) ng/mL Total Protein (6.3-8.2) g/dL Albumin (3.5-5.0) g/dL Amylase (30-110) U/L Lipase (23-300) U/L Serum Alcohol mg/dL Coronavirus (PCR) (Not Detectd) 03/24/21 03/24/21 03/24/21 Range/Units 18:07 18:07 18:07 WBC (3.8-10.6) k/uL RBC (3.80-5.40) m/uL Hgb (11.4-16.0) gm/dL Hct (34.0-46.0) % MCV (80.0-100.0) fL MCH (25.0-35.0) pg MCHC (31.0-37.0) g/dL RDW (11.5-15.5) % Plt Count (150-450) k/uL MPV Neutrophils % % Lymphocytes % % Monocytes % % Eosinophils % % Basophils % % Neutrophils # (1.3-7.7) k/uL Lymphocytes # (1.0-4.8) k/uL Monocytes # (0-1.0) k/uL Eosinophils # (0-0.7) k/uL Basophils # (0-0.2) k/uL Hypochromasia Macrocytosis PT 20.2 H (9.0-12.0) sec INR 2.1 H (<1.2) APTT 25.2 (22.0-30.0) sec Sample Site ABG pH (7.35-7.45) ABG pCO2 (35-45) mmHg ABG pO2 (83-108) mmHg ABG HCO3 (21-25) mmol/L ABG Total CO2 (19-24) mmol/L ABG O2 Saturation (94-97) % ABG Base Excess mmol/L Rubio Test FiO2 % Sodium 137 (137-145) mmol/L Potassium 5.2 H (3.5-5.1) mmol/L Chloride 89 L (98-107) mmol/L Carbon Dioxide 26 (22-30) mmol/L Anion Gap 22 mmol/L BUN 67 H (7-17) mg/dL Creatinine 2.62 H (0.52-1.04) mg/dL Est GFR (CKD-EPI)AfAm 22 (>60 ml/min/1.73 sqM) Est GFR (CKD-EPI)NonAf 19 (>60 ml/min/1.73 sqM) Glucose 30 L* (74-99) mg/dL POC Glucose (mg/dL) (75-99) mg/dL POC Glu Risk Professional ID Calcium 7.5 L (8.4-10.2) mg/dL Total Bilirubin 1.7 H (0.2-1.3) mg/dL AST 8923 H (14-36) U/L ALT 3090 H (4-34) U/L Alkaline Phosphatase 313 H (38-126) U/L Creatine Kinase (30-135) U/L Troponin I 0.447 H* (0.000-0.034) ng/mL Total Protein 6.2 L (6.3-8.2) g/dL Albumin 3.6 (3.5-5.0) g/dL Amylase (30-110) U/L Lipase (23-300) U/L Serum Alcohol <10 mg/dL Coronavirus (PCR) (Not Detectd) 03/24/21 03/24/21 03/24/21 Range/Units 18:07 18:12 18:50 WBC (3.8-10.6) k/uL RBC (3.80-5.40) m/uL Hgb (11.4-16.0) gm/dL Hct (34.0-46.0) % MCV (80.0-100.0) fL MCH (25.0-35.0) pg MCHC (31.0-37.0) g/dL RDW (11.5-15.5) % Plt Count (150-450) k/uL MPV Neutrophils % % Lymphocytes % % Monocytes % % Eosinophils % % Basophils % % Neutrophils # (1.3-7.7) k/uL Lymphocytes # (1.0-4.8) k/uL Monocytes # (0-1.0) k/uL Eosinophils # (0-0.7) k/uL Basophils # (0-0.2) k/uL Hypochromasia Macrocytosis PT (9.0-12.0) sec INR (<1.2) APTT (22.0-30.0) sec Sample Site ABG pH (7.35-7.45) ABG pCO2 (35-45) mmHg ABG pO2 (83-108) mmHg ABG HCO3 (21-25) mmol/L ABG Total CO2 (19-24) mmol/L ABG O2 Saturation (94-97) % ABG Base Excess mmol/L Rubio Test FiO2 % Sodium (137-145) mmol/L Potassium (3.5-5.1) mmol/L Chloride (98-107) mmol/L Carbon Dioxide (22-30) mmol/L Anion Gap mmol/L BUN (7-17) mg/dL Creatinine (0.52-1.04) mg/dL Est GFR (CKD-EPI)AfAm (>60 ml/min/1.73 sqM) Est GFR (CKD-EPI)NonAf (>60 ml/min/1.73 sqM) Glucose (74-99) mg/dL POC Glucose (mg/dL) 210 H (75-99) mg/dL POC Glu Risk Professional ID Ford, Shira Calcium (8.4-10.2) mg/dL Total Bilirubin (0.2-1.3) mg/dL AST (14-36) U/L ALT (4-34) U/L Alkaline Phosphatase (38-126) U/L Creatine Kinase 702 H (30-135) U/L Troponin I (0.000-0.034) ng/mL Total Protein (6.3-8.2) g/dL Albumin (3.5-5.0) g/dL Amylase 100 (30-110) U/L Lipase 218 (23-300) U/L Serum Alcohol mg/dL Coronavirus (PCR) Not Detected (Not Detectd) 03/24/21 Range/Units 19:24 WBC (3.8-10.6) k/uL RBC (3.80-5.40) m/uL Hgb (11.4-16.0) gm/dL Hct (34.0-46.0) % MCV (80.0-100.0) fL MCH (25.0-35.0) pg MCHC (31.0-37.0) g/dL RDW (11.5-15.5) % Plt Count (150-450) k/uL MPV Neutrophils % % Lymphocytes % % Monocytes % % Eosinophils % % Basophils % % Neutrophils # (1.3-7.7) k/uL Lymphocytes # (1.0-4.8) k/uL Monocytes # (0-1.0) k/uL Eosinophils # (0-0.7) k/uL Basophils # (0-0.2) k/uL Hypochromasia Macrocytosis PT (9.0-12.0) sec INR (<1.2) APTT (22.0-30.0) sec Sample Site L RAD ABG pH 7.27 L (7.35-7.45) ABG pCO2 70 H (35-45) mmHg ABG pO2 290 H (83-108) mmHg ABG HCO3 32 H (21-25) mmol/L ABG Total CO2 34 H (19-24) mmol/L ABG O2 Saturation 99.6 H (94-97) % ABG Base Excess 5.4 mmol/L Rubio Test Yes FiO2 100 % Sodium (137-145) mmol/L Potassium (3.5-5.1) mmol/L Chloride (98-107) mmol/L Carbon Dioxide (22-30) mmol/L Anion Gap mmol/L BUN (7-17) mg/dL Creatinine (0.52-1.04) mg/dL Est GFR (CKD-EPI)AfAm (>60 ml/min/1.73 sqM) Est GFR (CKD-EPI)NonAf (>60 ml/min/1.73 sqM) Glucose (74-99) mg/dL POC Glucose (mg/dL) (75-99) mg/dL POC Glu Risk Professional ID Calcium (8.4-10.2) mg/dL Total Bilirubin (0.2-1.3) mg/dL AST (14-36) U/L ALT (4-34) U/L Alkaline Phosphatase (38-126) U/L Creatine Kinase (30-135) U/L Troponin I (0.000-0.034) ng/mL Total Protein (6.3-8.2) g/dL Albumin (3.5-5.0) g/dL Amylase (30-110) U/L Lipase (23-300) U/L Serum Alcohol mg/dL Coronavirus (PCR) (Not Detectd) - Radiology Data Radiology results: report reviewed (CT brain shows atrophy. No acute process.), image reviewed (Chest x-ray shows patchy infiltrates. Underlying COPD.) Critical Care Time Critical Care Time: Yes Total Critical Care Time: 35 Disposition Clinical Impression: Respiratory failure, Altered mental status, Hypoglycemia, Pneumonia, Sepsis Disposition: ADMITTED IP TO THIS HOSP Condition: Serious Is patient prescribed a controlled substance at d/c from ED?: No Referrals: Jonathan Natarajan DO [Primary Care Provider] - 1-2 days
[2021-03-24 18:12] LABS: Glucose,Whole Blood 113 mg/dL (75-99)
[2021-03-24 18:21] LABS: Albumin 3.6 g/dL (3.5-5.0); Alcohol <10 mg/dL; Alkaline Phosphatase 313 U/L (38-126); Anion Gap 22 mmol/L; Blood Urea Nitrogen 67 mg/dL (7-17); Calcium 7.5 mg/dL (8.4-10.2); Carbon Dioxide 26 mmol/L (22-30); Chloride 89 mmol/L (98-107); Potassium 5.2 mmol/L (3.5-5.1); Sodium 137 mmol/L (137-145); Total Bilirubin 1.7 mg/dL (0.2-1.3); Total Protein 6.2 g/dL (6.3-8.2)
[2021-03-24 18:22] LABS: Basophils # (A) 0.1 k/uL (0-0.2); Basophils % (A) 0 %; Eosinophils % (A) 0 %; HCT 47.7 % (34.0-46.0); HGB 14.4 gm/dL (11.4-16.0); Hypochromasia Marked; Lymphocytes # (A) 0.4 k/uL (1.0-4.8); Lymphocytes % (A) 2 %; MCH 31.8 pg (25.0-35.0); MCHC 30.2 g/dL (31.0-37.0); Macrocytosis Moderate; Mean Platelet Volume 9.2; Monocytes # (A) 0.8 k/uL (0-1.0); Monocytes % (A) 5 %; Neutrophils # (A) 16.2 k/uL (1.3-7.7); Neutrophils % (A) 92 %; Platelet Count 297 k/uL (150-450); RBC 4.54 m/uL (3.80-5.40); WBC 17.7 k/uL (3.8-10.6)
[2021-03-24 18:27] LABS: African American GFR (CKD) 22 (>60 ml/min/1.73 sqM); Non-African American GFR(CKD) 19 (>60 ml/min/1.73 sqM)
[2021-03-24 18:32] LABS: INR 2.1 (<1.2); Partial Thromboplastin Time 25.2 sec (22.0-30.0); Prothrombin Time 20.2 sec (9.0-12.0)
[2021-03-24 18:43] LABS: ALT 3090 U/L (4-34); AST 8923 U/L (14-36); Glucose 30 mg/dL (74-99)
[2021-03-24] MEDS ORDERED: SODIUM CHLORIDE 0.9% 500 ML 500 ML IV STA (18:53)
[2021-03-24 18:55] LABS: Glucose,Whole Blood 210 mg/dL (75-99)
[2021-03-24 19:07] LABS: Amylase 100 U/L (30-110); Creatine Kinase 702 U/L (30-135); Lipase 218 U/L (23-300)
[2021-03-24 19:31] LABS: ABG Base Excess 5.4 mmol/L; ABG HCO3 32 mmol/L (21-25); ABG Oxygen Saturation 99.6 % (94-97); ABG PCO2 70 mmHg (35-45); ABG PH 7.27 (7.35-7.45); ABG PO2 290 mmHg (83-108); ABG TCO2 34 mmol/L (19-24); Allen Test Performed? Yes
--- NOTE | 2021-03-24 19:34 | XR ---
EXAMINATION TYPE: XR chest 1V DATE OF EXAM: 03/24/2021 COMPARISON: 03/05/2018 HISTORY: Altered mental status TECHNIQUE: Single view FINDINGS: Heart size is normal. There is no heart failure. There are some mild interstitial infiltrat es in both lung lacy. There are chest leads. There is no pleural effusion. IMPRESSION: There are some mild patchy interstitial infiltrates slightly increased compared to last exam. There i s probably underlying COPD. No obvious heart failure.
--- NOTE | 2021-03-24 19:42 | CT ---
EXAMINATION TYPE: CT brain wo con DATE OF EXAM: 03/24/2021 COMPARISON: 03/04/2018 HISTORY: Altered mental status. CT DLP: 1099.4 mGycm Automated exposure control for dose reduction was used. Images obtained of the brain without contrast. There is mild cerebral atrophy. There is no mass effect or midline shift. There is no sign of intracr anial hemorrhage. The calvarium is intact. Skull base is intact. IMPRESSION: Mild cerebral atrophy. No acute intracranial abnormality. No change.
[2021-03-24] MEDS ORDERED: SODIUM CHLORIDE 0.9% 1,000 ML IV STA (19:52)
[2021-03-24] MEDS ORDERED: IPRATROPIUM-ALBUTEROL 3 ML NEB INHALATION PRN (19:52)
[2021-03-24] MEDS ORDERED: AZITHROMYCIN 500 MG in SODIUM CHLORIDE 0.9% 250 ML IVPB STA (19:52)
[2021-03-24] MEDS ORDERED: PNEUMONIA PROTOCOL UTILIZED 1 EACH MISC PO PRN (19:52)
[2021-03-24] MEDS ORDERED: ASPIRIN 81 MG PO STA (19:54)
[2021-03-24] MEDS ORDERED: HEPARIN SODIUM 1,000 UN/ML (10ML VL) IV ONE (19:54)
[2021-03-24] MEDS ORDERED: HEPARIN SOD,PORK IN 0.45% NACL 25,000 UNIT in 0.45% NACL 1 250ML.BAG IV SCH (20:00)
[2021-03-24 20:33] LABS: Amorphous Sediment,Urine Rare /hpf; Appearance,Urine Cloudy (Clear); Bacteria,Urine Rare /hpf; Bilirubin,Urine Negative (Negative); Blood,Urine Moderate (Negative); Color,Urine Yellow; Glucose,Urine (UA) Trace (Negative); Granular Casts,Urine 3 /lpf (0); Hyaline Casts,Urine 56 /lpf (0-2); Ketones,Urine Negative (Negative); Leukocyte Esterase,Urine Negative (Negative); Mucus,Urine Few /hpf; Nitrite,Urine Negative (Negative); PH, Urine 5.5 (5.0-8.0); Protein,Urine 2+ (Negative); RBC,Urine 1 /hpf (0-5); Specific Gravity,Urine 1.016 (1.001-1.035); Squamous Epithelial Cell,Urine 3 /hpf (0-4); WBC,Urine 8 /hpf (0-5)
[2021-03-24 20:35] LABS: Glucose,Whole Blood 221 mg/dL (75-99)
[2021-03-24 20:49] LABS: Amphetamine Screen,Urine Not Detected (NotDetected); Barbiturate Screen,Urine Not Detected (NotDetected); Benzodiazepines Screen,Urine Not Detected (NotDetected); Cocaine Screen,Urine Not Detected (NotDetected); Methadone Screen, Urine Not Detected (NotDetected); Opiate Screen,Urine Detected (NotDetected); Oxycodone Screen, Urine Not Detected (NotDetected); Phencyclidine Screen,Urine Not Detected (NotDetected); Tricyclic Antidepressant,Urine Not Detected (NotDetected); Urn Cannabinoid Scrn Not Detected (NotDetected)
[2021-03-24] MEDS: IPRATROPIUM-ALBUTEROL 3 ML NEB INHALATION SCH (21:45)
[2021-03-24 22:16] LABS: Glucose,Whole Blood 191 mg/dL (75-99)
[2021-03-24] MEDS: MEMANTINE 10 MG TAB PO SCH (23:02)
[2021-03-25 00:35] LABS: Glucose,Whole Blood 150 mg/dL (75-99)
[2021-03-25 03:05] LABS: Glucose,Whole Blood 113 mg/dL (75-99)
[2021-03-25 06:06] LABS: African American GFR (CKD) 48 (>60 ml/min/1.73 sqM); Albumin 2.9 g/dL (3.5-5.0); Alkaline Phosphatase 286 U/L (38-126); Anion Gap 5 mmol/L; Blood Urea Nitrogen 61 mg/dL (7-17); Calcium 6.9 mg/dL (8.4-10.2); Carbon Dioxide 38 mmol/L (22-30); Chloride 99 mmol/L (98-107); Glucose 105 mg/dL (74-99); Non-African American GFR(CKD) 41 (>60 ml/min/1.73 sqM); Potassium 4.4 mmol/L (3.5-5.1); Sodium 142 mmol/L (137-145); Total Bilirubin 0.8 mg/dL (0.2-1.3); Total Protein 5.6 g/dL (6.3-8.2)
[2021-03-25 06:14] LABS: Basophils % (A) 0 %; Eosinophils % (A) 0 %; HCT 42.1 % (34.0-46.0); HGB 13.1 gm/dL (11.4-16.0); Hypochromasia Moderate; Lymphocytes # (A) 0.2 k/uL (1.0-4.8); Lymphocytes % (A) 2 %; MCH 32.1 pg (25.0-35.0); MCV 103.6 fL (80.0-100.0); Macrocytosis Moderate; Mean Platelet Volume 8.8; Monocytes # (A) 0.3 k/uL (0-1.0); Monocytes % (A) 2 %; Neutrophils # (A) 13.9 k/uL (1.3-7.7); Neutrophils % (A) 96 %; Platelet Count 235 k/uL (150-450); RBC 4.06 m/uL (3.80-5.40); WBC 14.5 k/uL (3.8-10.6)
[2021-03-25 06:28] LABS: ALT 3311 U/L (4-34)
[2021-03-25 06:38] LABS: AST 7423 U/L (14-36)
[2021-03-25] MEDS: IPRATROPIUM-ALBUTEROL 3 ML NEB INHALATION SCH ×4 (07:38→21:29)
[2021-03-25 08:22] LABS: Glucose,Whole Blood 96 mg/dL (75-99)
[2021-03-25] MEDS ORDERED: ASPIRIN 325 MG TAB PO SCH (09:00)
--- NOTE | 2021-03-25 09:09 | XR ---
EXAMINATION TYPE: XR chest 1V DATE OF EXAM: 03/25/2021 COMPARISON: Chest x-ray 03/24/2021 HISTORY: Pneumonia TECHNIQUE: Single frontal view of the chest is obtained. FINDINGS: Airspace disease is noted in the right mid and lower lung. Prominent lung volumes suggest underlying COPD. No evident pneumothorax or pleural effusion. Interstitium is prominent. High riding right shoulder could be due to chronic rotator cuff tear. Heart is upper limit of normal for size. Th ere is an underlying scoliosis. IMPRESSION: Correlate for pneumonia, follow-up suggested
[2021-03-25] MEDS: LORazepam 2 MG/ML INJ IV PRN ×2 (09:15→14:44)
[2021-03-25 09:18] LABS: Chol/HDL Ratio 2.38 Ratio; LDL Cholesterol,Calculated 40.1 mg/dL (0.0-131.0)
[2021-03-25] MEDS: ASPIRIN 81 MG PO SCH (10:30)
[2021-03-25] MEDS: DONEPEZIL 10 MG TAB PO SCH (10:30)
[2021-03-25] MEDS: MEMANTINE 10 MG TAB PO SCH (10:31)
--- NOTE | 2021-03-25 11:20 | ECHOF ---
Referral Reason:LV function MEASUREMENTS -------- HEIGHT: 152.4 cm WEIGHT: 33.1 kg BP: RVIDd: 4.1 cm (< 3.3) IVSd: 1.0 cm (0.6 - 1.1) LVIDd: 3.0 cm (3.9 - 5.3) LVPWd: 1.1 cm (0.6 - 1.1) IVSs: 1.0 cm LVIDs: 2.6 cm LVPWs: 1.4 cm Ao Diam: 2.2 cm (2.0 - 3.7) AV Cusp: 1.1 cm (1.5 - 2.6) MV EXCURSION: 20.651 mm (> 18.000) MV EF SLOPE: 78 mm/s (70 - 150) EPSS: 0.4 cm MV E Rigoberto: 0.66 m/s MV DecT: 105 ms MV A Rigoberto: 0.55 m/s MV E/A Ratio: 1.21 RAP: 5.00 mmHg RVSP: 13.28 mmHg FINDINGS -------- Sinus rhythm. This was a technically adequate study. LV size, wall thickness and systolic function are normal, with an EF greater than 55%. The left bigg tricular size is normal. The right ventricle is severely enlarged. The global wall thickness of the right ventricle is mildl y enlarged. The left atrial size is normal. The right atrial size is normal. The aortic valve is trileaflet, and appears structurally normal. No aortic stenosis or regurgitation. Mild mitral annular calcification present. Mild mitral regurgitation is present. Mild tricuspid regurgitation present. Right ventricular systolic pressure is normal at < 35 mmHg. There is no pulmonic regurgitation present. The aortic root size is normal. There is no pericardial effusion. CONCLUSIONS -------- 1. LV size, wall thickness and systolic function are normal, with an EF greater than 55%. 2. The left ventricular size is normal. 3. The right ventricle is severely enlarged. 4. The global wall thickness of the right ventricle is mildly enlarged. 5. The left atrial size is normal. 6. The right atrial size is normal. 7. The aortic valve is trileaflet, and appears structurally normal. No aortic stenosis or regurgitati on. 8. Mild mitral annular calcification present. 9. Mild mitral regurgitation is present. 10. Mild tricuspid regurgitation present. 11. There is no pulmonic regurgitation present. 12. The aortic root size is normal. 13. There is no pericardial effusion. BODY ART TECHNICIAN: Christine Abraham RDCS
--- NOTE | 2021-03-25 11:32 | P.CRDCN ---
History of Present Illness Consult date: 03/25/21 History of present illness: HISTORY OF PRESENT ILLNESS: This is a 65-year-old female with a past medical history significant for COPD, dementia, fibromyalgia, osteoarthritis, anxiety, depression, and nicotine dependence. Patient does not follow with a mfg assoc. We have been asked to see the patient in consultation for elevated troponin. Patient examined at the bedside. Patient is a poor historian. Her family is at the bedside. They stated they were unable to get ahold of the patient so they drove to her house and when they found the patient she was essentially unresponsive. They are not sure how long she was unresponsive for. The patient is currently on a bipap. She denies chest pain or pressure. Blood pressure 136/81. EKG reveals sinus mechanism with peaked P waves. No sign of acute coronary syndrome. Chest xray correlate for pneumonia. Echocardiogram completed revealing ejection fraction greater than 55%, mild mitral regurgitation, and mild tricuspid regurgitation Laboratory data: WBC 14.5. Hemoglobin 13.1. Platelet count 235. Sodium 142. Potassium 4.4. BUN 61. Creatinine 1.37. AST 7423. ALT 3311. Troponin 0.447. 0.333. 0.296. Current home cardiac medications include none REVIEW OF SYSTEMS: At the time of my exam: CONSTITUTIONAL: Denies fever or chills. HEENT: Denies blurred vision, vision changes, or eye pain. Denies hemoptysis CARDIOVASCULAR: Denies chest pain. Denies orthopnea. Denies PND. Denies palpitations RESPIRATORY: + shortness of breath. GASTROINTESTINAL: Denies abdominal pain. Denies nausea or vomiting. HEMATOLOGIC: Denies bleeding disorders. GENITOURINARY: Denies any blood in urine. SKIN: Denies pruitis. Denies rash. PHYSICAL EXAM: VITAL SIGNS: Reviewed. GENERAL: Well-developed in no acute distress. Frail. HEENT: Head is normocephalic. Pupils are equal, round. Sclerae anicteric. Mucous membranes of the mouth are moist. Neck supple. No JVD or thyromegaly LUNGS: Respirations even and unlabored. Lungs diminished to auscultation bilaterally. HEART: Regular rate and rhythm. S1 and S2 heard. ABDOMEN: Soft. Nondistended. Nontender. EXTREMITIES: Normal range of motion. No clubbing or cyanosis. Peripheral pulses intact. No lower extremity edema NEUROLOGIC: Lethargic ASSESSMENT: Altered mental status, found unresponsive at home per family Pneumonia Acute hypoxic respiratory failure Leukocytosis Transaminitis Abnormal troponins, not suggestive of acute coronary syndrome Acute renal failure PLAN: 2D echo obtained and reviewed Patients symptoms do not appear to be cardiac related No further inpatient recommendations from a cardiac standpoint We will sign off. Please reconsult if needed. Nurse practitioner note has been reviewed by physician. Signing provider agrees with the documented findings, assessment, and plan of care. 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 pimentel) History of Any Multi-Drug Resistant Organisms: None Reported Past Surgical History: Orthopedic Surgery, Tubal Ligation Additional Past Surgical History / Comment(s): right shoulder surgery. colono scopy/polys benign, egd w/bx neg Past Anesthesia/Blood Transfusion Reactions: No Reported Reaction Past Psychological History: Anxiety, Depression Additional Psychological History / Comment(s): pt lives with boyfriend, is ind ependent, no driving takes bus or family takes. has nebulizer Smoking Status: Current every day smoker Past Alcohol Use History: None Reported Additional Past Alcohol Use History / Comment(s): started smoking at age 18 smokes 2ppd Past Drug Use History: None Reported - Past Family History Mother Family Medical History: Cancer Additional Family Medical History / Comment(s): liver/pancreastic cancer Father Family Medical History: Cancer Additional Family Medical History / Comment(s): lung cancer Medications and Allergies Home Medications Medication Instructions Recorded Confirmed Type Hydrocodone/Acetaminophen 1 tab PO BID 09/03/13 03/24/21 History [Hydrocodone/Acetaminophen 10-325] Pregabalin [Lyrica] 150 mg PO TID 09/03/13 03/24/21 History Donepezil [Aricept] 10 mg PO DAILY 07/27/17 03/24/21 History Modafinil [Provigil] 100 mg PO BID 07/27/17 03/24/21 History Omeprazole [PriLOSEC] 20 mg PO AC-BID 07/27/17 03/24/21 History lamoTRIgine [LaMICtal] 25 mg PO HS 07/27/17 03/24/21 History Ipratropium-Albuterol Nebulize 3 ml INHALATION RT-QID 03/04/18 03/24/21 History [Duoneb 0.5 mg-3 mg/3 ml Soln] Albuterol Sulfate [Albuterol 2 puff PO RT-Q4H PRN 03/24/21 03/24/21 History Sulfate Hfa] Butalb/APAP/Caff 50-325-40Mg 1 tab PO Q8H PRN 03/24/21 03/24/21 History [Fioricet 50-325-40] Loperamide [Imodium] 2 mg PO TID PRN 03/24/21 03/24/21 History Memantine HCl 10 mg PO BID 03/24/21 03/24/21 History Morphine Sulfate [Ms Contin] 30 mg PO BID 03/24/21 03/24/21 History Naproxen 500 mg PO BID PRN 03/24/21 03/24/21 History Ondansetron HCl [Zofran] 2 mg PO Q6H PRN 03/24/21 03/24/21 History Allergies Allergy/AdvReac Type Severity Reaction Status Date / Time No Known Allergies Allergy Verified 03/24/21 19:15 Physical Exam Vitals: Vital Signs Temp Pulse Pulse Resp BP BP Pulse Ox 03/25/21 08:10 98.4 F 89 24 136/81 92 L 03/25/21 07:30 87 18 121/72 90 L 03/25/21 06:00 96 18 118/80 88 L 03/25/21 04:20 78 18 104/68 92 L 03/25/21 03:00 77 18 101/61 90 L 03/25/21 01:44 73 18 92/67 89 L 03/25/21 00:32 77 18 92/61 90 L 03/24/21 23:28 74 18 99/67 93 L 03/24/21 22:12 85 18 94/63 97 03/24/21 22:07 86 03/24/21 21:46 83 03/24/21 20:42 81 18 90/61 95 03/24/21 18:08 93 20 127/78 100 03/24/21 17:51 98.1 F 97 26 H 112/87 97 Intake and Output 03/24/21 03/25/21 03/25/21 22:59 06:59 14:59 Other: Weight 33.339 kg Results 03/25/21 05:20 03/25/21 05:20 Cardiac Enzymes 03/24/21 03/24/21 03/24/21 Range/Units 18:07 18:07 21:35 AST 8923 H (14-36) U/L Troponin I 0.447 H* 0.333 H* (0.000-0.034) ng/mL 03/24/21 03/25/21 Range/Units 23:59 05:20 AST 7423 H (14-36) U/L Troponin I 0.296 H* (0.000-0.034) ng/mL Coagulation 03/24/21 Range/Units 18:07 PT 20.2 H (9.0-12.0) sec APTT 25.2 (22.0-30.0) sec Lipids 03/25/21 Range/Units 05:20 Triglycerides 107.00 (0.00-149.00) mg/dL Cholesterol 106.00 (0.00-200.00) mg/dL HDL Cholesterol 44.50 (40.00-60.00) mg/dL Cholesterol/HDL Ratio 2.38 Ratio CBC 03/24/21 03/25/21 Range/Units 18:07 05:20 WBC 17.7 H 14.5 H (3.8-10.6) k/uL RBC 4.54 4.06 (3.80-5.40) m/uL Hgb 14.4 13.1 (11.4-16.0) gm/dL Hct 47.7 H 42.1 (34.0-46.0) % Plt Count 297 235 (150-450) k/uL Comprehensive Metabolic Panel 03/24/21 03/25/21 Range/Units 18:07 05:20 Sodium 137 142 (137-145) mmol/L Potassium 5.2 H 4.4 (3.5-5.1) mmol/L Chloride 89 L 99 (98-107) mmol/L Carbon Dioxide 26 38 H (22-30) mmol/L BUN 67 H 61 H (7-17) mg/dL Creatinine 2.62 H 1.37 H (0.52-1.04) mg/dL Glucose 30 L* 105 H (74-99) mg/dL Calcium 7.5 L 6.9 L (8.4-10.2) mg/dL AST 8923 H 7423 H (14-36) U/L ALT 3090 H 3311 H (4-34) U/L Alkaline Phosphatase 313 H 286 H (38-126) U/L Total Protein 6.2 L 5.6 L (6.3-8.2) g/dL Albumin 3.6 2.9 L (3.5-5.0) g/dL Current Medications Generic Name Dose Route Start Last Admin Trade Name Freq PRN Reason Stop Dose Admin Albuterol/Ipratropium 3 ml 03/24/21 20:00 03/25/21 07:38 Ipratropium-Albuterol 3 Ml Neb INHALATION Not Given RT-QID APOORVA Albuterol/Ipratropium 3 ml 03/24/21 19:52 Ipratropium-Albuterol 3 Ml Neb INHALATION RT-Q4H PRN shortness of breath Aspirin 81 mg 03/25/21 09:00 03/25/21 10:30 Aspirin 81 Mg PO Not Given DAILY APOORVA Azithromycin 500 mg 03/25/21 21:00 Azithromycin 500 Mg Tab PO 03/26/21 21:01 HS APOORVA Donepezil HCl 10 mg 03/25/21 09:00 03/25/21 10:30 Donepezil 10 Mg Tab PO Not Given DAILY APOORVA Dextrose/Sodium Chloride 1,000 mls @ 50 mls/hr 03/24/21 17:58 03/24/21 18:07 Dextrose 5%-1/2ns Iv Soln IV 03/25/21 13:57 Not Given .Q20H ONE Ceftriaxone Sodium 2 gm/ 50 mls @ 100 mls/hr 03/25/21 21:00 Sodium Chloride IVPB 03/28/21 21:29 HS APOORVA Lorazepam 0.5 mg 03/25/21 09:03 03/25/21 09:15 Lorazepam 2 Mg/Ml Inj IV 0.5 mg Q8HR PRN Administration Agitation or Acute Anxiety Memantine 10 mg 03/24/21 22:00 03/25/21 10:31 Memantine 10 Mg Tab PO Not Given BID APOORVA Miscellaneous Information 1 each 03/24/21 19:52 Pneumonia Protocol Utilized 1 Each Misc PO ONCE PRN Per Protocol Intake and Output 03/24/21 03/25/21 03/25/21 22:59 06:59 14:59 Other: Weight 33.339 kg 03/25/21 05:20 03/25/21 05:20
[2021-03-25 11:45] VITALS: BMI 14.3
[2021-03-25 11:45] LABS: Glucose,Whole Blood 93 mg/dL (75-99)
[2021-03-25] MEDS ORDERED: LORazepam 2 MG/ML INJ IV PRN (14:45)
--- NOTE | 2021-03-25 16:03 | P.CNPUL ---
History of Present Illness Consult date: 03/25/21 Requesting physician: Clifton Adkins Reason for consult: dyspnea, COPD, hypoxemia, abnormal CXR/CT Chief complaint: Hypoxemic respiratory failure/shortness of breath. History of present illness: Pulmonary consult dated 03/25/2021. 65-year-old female, looks much older than her stated age, who presented to the emergency department, on March 24, with mental status changes. The patient apparently has been lying in the bed for at least a week or so according to the family. The patient apparently provided little history in the emergency room, according to the ER physician. Currently, the patient is seen in room 375. She is a DO NOT RESUSCITATE patient. She weighs about 60 pounds. She tested negative for coronavirus. The patient's currently on BiPAP at 12/6 and 40% FiO2. The patient apparently has severe COPD. She does use home oxygen 24/7, and continues to smoke 2 packs of cigarettes a day. She's not receiving any IV fluids currently. Her primary admissions supervisor is Dr. Carpenter. Since Dr. Carpenter is not available, we were asked to see her. The patient looks very frail, and very ill. She is poorly responsive. I suspect a component of hypercapnic respiratory failure. White count 14.5, hemoglobin 13.1, hematocrit 42.1, and platelet count. 35,000. Sodium 142, potassium 4.4, chlorides 99, CO2 38, with a BUN of 61 and a creatinine of 1.37. AST 7423. ALT is 3311. Albumin 2.9. Troponin was 0.296. PTT was 20.2, and INR was 2.1. Blood gases done in the emergency room, on 100% oxygen, showed a pO2 of 290, pCO2 of 70, and pH is 7.27. It appears that her baseline PaCO2 is probably right around 57-[address] showed some cerebral atrophy. Chest x-ray showed some infiltrate bilaterally, right greater than left, and on the more recent chest x-ray, shows worsening infiltrate on the right side. This could be consistent with aspiration pneumonia. Drug screen was positive for opiates. Review of Systems REVIEW OF SYSTEMS: The patient is unable to give any additional history today. She is very somnolent and lethargic. CONSTITUTIONAL: [Negative.] NEUROLOGIC: Mental status changes, according to the ER slime. HEENT: [ Negative.] CARDIAC: [Negative.] PULMONARY: [Negative.] GI: [Negative.] : [Negative.] RHEUMATOLOGIC: [ Negative.] IMMUNOLOGIC: [ Negative.] ENDOCRINE: [Negative. ] DERMATOLOGIC: [Negative.] Past Medical History Past Medical History: COPD, Dementia, Fibromyalgia, GERD/Reflux, Memory Impairment, Osteoarthritis (OA) Additional Past Medical History / Comment(s): emphysema, irritable bowels, degenerative disc dx neck and back, MS, sm aneurysm in rt congregation (dr. pimentel) History of Any Multi-Drug Resistant Organisms: None Reported Past Surgical History: Orthopedic Surgery, Tubal Ligation Additional Past Surgical History / Comment(s): right shoulder surgery. colo noscopy/polys benign, egd w/bx neg Past Anesthesia/Blood Transfusion Reactions: No Reported Reaction Past Psychological History: Anxiety, Depression Additional Psychological History / Comment(s): pt lives with boyfriend, is i ndependent, no driving takes bus or family takes. has nebulizer Smoking Status: Current every day smoker Past Alcohol Use History: None Reported Additional Past Alcohol Use History / Comment(s): started smoking at age 18 smok es 2ppd Past Drug Use History: None Reported - Past Family History Mother Family Medical History: Cancer Additional Family Medical History / Comment(s): liver/pancreastic cancer Father Family Medical History: Cancer Additional Family Medical History / Comment(s): lung cancer Medications and Allergies Home Medications Medication Instructions Recorded Confirmed Type Hydrocodone/Acetaminophen 1 tab PO BID 09/03/13 03/24/21 History [Hydrocodone/Acetaminophen 10-325] Pregabalin [Lyrica] 150 mg PO TID 09/03/13 03/24/21 History Donepezil [Aricept] 10 mg PO DAILY 07/27/17 03/24/21 History Modafinil [Provigil] 100 mg PO BID 07/27/17 03/24/21 History Omeprazole [PriLOSEC] 20 mg PO AC-BID 07/27/17 03/24/21 History lamoTRIgine [LaMICtal] 25 mg PO HS 07/27/17 03/24/21 History Ipratropium-Albuterol Nebulize 3 ml INHALATION RT-QID 03/04/18 03/24/21 History [Duoneb 0.5 mg-3 mg/3 ml Soln] Albuterol Sulfate [Albuterol 2 puff PO RT-Q4H PRN 03/24/21 03/24/21 History Sulfate Hfa] Butalb/APAP/Caff 50-325-40Mg 1 tab PO Q8H PRN 03/24/21 03/24/21 History [Fioricet 50-325-40] Loperamide [Imodium] 2 mg PO TID PRN 03/24/21 03/24/21 History Memantine HCl 10 mg PO BID 03/24/21 03/24/21 History Morphine Sulfate [Ms Contin] 30 mg PO BID 03/24/21 03/24/21 History Naproxen 500 mg PO BID PRN 03/24/21 03/24/21 History Ondansetron HCl [Zofran] 2 mg PO Q6H PRN 03/24/21 03/24/21 History Allergies Allergy/AdvReac Type Severity Reaction Status Date / Time No Known Allergies Allergy Verified 03/24/21 19:15 Physical Exam Osteopathic Statement: *. No significant issues noted on an osteopathic structural exam other than those noted in the History and Physical/Consult. Vitals: Vital Signs Temp Pulse Pulse Resp BP BP Pulse Ox 03/25/21 12:37 84 03/25/21 12:28 83 03/25/21 11:25 98.2 F 90 24 126/84 93 L 03/25/21 08:10 98.4 F 89 24 136/81 92 L 03/25/21 07:30 87 18 121/72 90 L 03/25/21 06:00 96 18 118/80 88 L 03/25/21 04:20 78 18 104/68 92 L 03/25/21 03:00 77 18 101/61 90 L 03/25/21 01:44 73 18 92/67 89 L 03/25/21 00:32 77 18 92/61 90 L 03/24/21 23:28 74 18 99/67 93 L 03/24/21 22:12 85 18 94/63 97 03/24/21 22:07 86 03/24/21 21:46 83 03/24/21 20:42 81 18 90/61 95 03/24/21 18:08 93 20 127/78 100 03/24/21 17:51 98.1 F 97 26 H 112/87 97 Intake and Output 03/25/21 03/25/21 03/25/21 06:59 14:59 22:59 Output Total 200 Balance -200 Output: Urine 200 Other: Weight 33.339 kg Somnolent/lethargic, currently on BiPAP, and unable to give any additional history. The patient looks much older than her stated age of 65. HEENT examination is grossly unremarkable. Mucous membranes are dry. Neck supple. Full range of motion. No adenopathy thyromegaly or neck vein distention. Cardiovascular examination reveals regular rhythm rate. S1-S2 normal. No S3 or S4. No discernible murmur noted. Heart rate 84 bpm. Lungs reveal coarse bilateral rhonchi, right greater than left. No wheezes or crackles. Breath sounds equal bilaterally. She does not take deep breaths. Abdomen scaphoid. No bowel sounds. No masses. Extremities are intact. No cyanosis clubbing or edema. Skin is without rash or lesion. Neurologic examination cannot be adequately assessed as the patient's very somnolent and lethargic, and poorly responsive. Results - Laboratory Findings CBC and BMP: 03/25/21 05:20 03/25/21 05:20 ABG ABG pH 7.27 (7.35-7.45) L 03/24/21 19:24 ABG pCO2 70 mmHg (35-45) H 03/24/21 19:24 ABG pO2 290 mmHg (83-108) H 03/24/21 19:24 ABG O2 Saturation 99.6 % (94-97) H 03/24/21 19:24 PT/INR, D-dimer PT 20.2 sec (9.0-12.0) H 03/24/21 18:07 INR 2.1 (<1.2) H 03/24/21 18:07 Abnormal lab findings: Abnormal Labs 03/24/21 03/24/21 03/24/21 17:54 17:57 18:06 WBC Hct MCV MCHC Neutrophils # Lymphocytes # PT INR ABG pH ABG pCO2 ABG pO2 ABG HCO3 ABG Total CO2 ABG O2 Saturation Potassium Chloride Carbon Dioxide BUN Creatinine Glucose POC Glucose (mg/dL) 35 L 113 H Calcium Total Bilirubin AST ALT Alkaline Phosphatase Creatine Kinase Troponin I Total Protein Albumin Procalcitonin 0.57 H Urine Appearance Urine Protein Urine Glucose (UA) Urine Blood Urine WBC Amorphous Sediment Urine Bacteria Hyaline Casts Urine Mucus Urine Opiates Screen 03/24/21 03/24/21 03/24/21 18:07 18:07 18:07 WBC 17.7 H Hct 47.7 H MCV 105.0 H MCHC 30.2 L Neutrophils # 16.2 H Lymphocytes # 0.4 L PT 20.2 H INR 2.1 H ABG pH ABG pCO2 ABG pO2 ABG HCO3 ABG Total CO2 ABG O2 Saturation Potassium 5.2 H Chloride 89 L Carbon Dioxide BUN 67 H Creatinine 2.62 H Glucose 30 L* POC Glucose (mg/dL) Calcium 7.5 L Total Bilirubin 1.7 H AST 8923 H ALT 3090 H Alkaline Phosphatase 313 H Creatine Kinase Troponin I Total Protein 6.2 L Albumin Procalcitonin Urine Appearance Urine Protein Urine Glucose (UA) Urine Blood Urine WBC Amorphous Sediment Urine Bacteria Hyaline Casts Urine Mucus Urine Opiates Screen 03/24/21 03/24/21 03/24/21 18:07 18:07 18:50 WBC Hct MCV MCHC Neutrophils # Lymphocytes # PT INR ABG pH ABG pCO2 ABG pO2 ABG HCO3 ABG Total CO2 ABG O2 Saturation Potassium Chloride Carbon Dioxide BUN Creatinine Glucose POC Glucose (mg/dL) 210 H Calcium Total Bilirubin AST ALT Alkaline Phosphatase Creatine Kinase 702 H Troponin I 0.447 H* Total Protein Albumin Procalcitonin Urine Appearance Urine Protein Urine Glucose (UA) Urine Blood Urine WBC Amorphous Sediment Urine Bacteria Hyaline Casts Urine Mucus Urine Opiates Screen 03/24/21 03/24/21 03/24/21 19:24 19:33 20:32 WBC Hct MCV MCHC Neutrophils # Lymphocytes # PT INR ABG pH 7.27 L ABG pCO2 70 H ABG pO2 290 H ABG HCO3 32 H ABG Total CO2 34 H ABG O2 Saturation 99.6 H Potassium Chloride Carbon Dioxide BUN Creatinine Glucose POC Glucose (mg/dL) 221 H Calcium Total Bilirubin AST ALT Alkaline Phosphatase Creatine Kinase Troponin I Total Protein Albumin Procalcitonin Urine Appearance Cloudy H Urine Protein 2+ H Urine Glucose (UA) Trace H Urine Blood Moderate H Urine WBC 8 H Amorphous Sediment Rare H Urine Bacteria Rare H Hyaline Casts 56 H Urine Mucus Few H Urine Opiates Screen Detected H 03/24/21 03/24/21 03/24/21 21:35 22:15 23:59 WBC Hct MCV MCHC Neutrophils # Lymphocytes # PT INR ABG pH ABG pCO2 ABG pO2 ABG HCO3 ABG Total CO2 ABG O2 Saturation Potassium Chloride Carbon Dioxide BUN Creatinine Glucose POC Glucose (mg/dL) 191 H Calcium Total Bilirubin AST ALT Alkaline Phosphatase Creatine Kinase Troponin I 0.333 H* 0.296 H* Total Protein Albumin Procalcitonin Urine Appearance Urine Protein Urine Glucose (UA) Urine Blood Urine WBC Amorphous Sediment Urine Bacteria Hyaline Casts Urine Mucus Urine Opiates Screen 03/25/21 03/25/21 03/25/21 00:34 03:04 05:20 WBC Hct MCV MCHC Neutrophils # Lymphocytes # PT INR ABG pH ABG pCO2 ABG pO2 ABG HCO3 ABG Total CO2 ABG O2 Saturation Potassium Chloride Carbon Dioxide 38 H BUN 61 H Creatinine 1.37 H Glucose 105 H POC Glucose (mg/dL) 150 H 113 H Calcium 6.9 L Total Bilirubin AST 7423 H ALT 3311 H Alkaline Phosphatase 286 H Creatine Kinase Troponin I Total Protein 5.6 L Albumin 2.9 L Procalcitonin Urine Appearance Urine Protein Urine Glucose (UA) Urine Blood Urine WBC Amorphous Sediment Urine Bacteria Hyaline Casts Urine Mucus Urine Opiates Screen 03/25/21 05:20 WBC 14.5 H Hct MCV 103.6 H MCHC Neutrophils # 13.9 H Lymphocytes # 0.2 L PT INR ABG pH ABG pCO2 ABG pO2 ABG HCO3 ABG Total CO2 ABG O2 Saturation Potassium Chloride Carbon Dioxide BUN Creatinine Glucose POC Glucose (mg/dL) Calcium Total Bilirubin AST ALT Alkaline Phosphatase Creatine Kinase Troponin I Total Protein Albumin Procalcitonin Urine Appearance Urine Protein Urine Glucose (UA) Urine Blood Urine WBC Amorphous Sediment Urine Bacteria Hyaline Casts Urine Mucus Urine Opiates Screen - Diagnostic Findings Chest x-ray: image reviewed Assessment and Plan Assessment: Acute hypoxemic and hypercapnic respiratory failure, likely related to underlying COPD exacerbation, complicated by pneumonia, right greater than left, and possibly related to aspiration. Acute liver failure. History of ongoing tobacco use and nicotine addiction. History of severe dementia. History of fibromyalgia. History of gastroesophageal reflux disease. History of osteoarthritis. History of degenerative disc disease. Plan: Plan dated 03/25/2021. The patient is currently on BiPAP. The patient should be on DuoNeb's 4 times a day and when necessary, as well as Pulmicort, and formoterol. The patient could be better served with Zosyn as an antibiotic. The patient should not receive any sedatives, hypnotics, narcotics, or tranquilizers. Prognosis is very poor. We'll continue to follow. I would worry about liver failure secondary to excess Tylenol. The patient takes both [place], and Fioricet. I will continue to follow make recommendations where appropriate. The patient is a DO NOT RESUSCITATE patient. Time with Patient: Greater than 30
[2021-03-25 16:22] LABS: Glucose,Whole Blood 109 mg/dL (75-99)
[2021-03-25 19:32] LABS: Glucose,Whole Blood 100 mg/dL (75-99)
[2021-03-25] MEDS: MEMANTINE 5 MG TAB PO SCH ×2 (20:17→20:25)
[2021-03-25] MEDS: PIPERACILLIN-TAZOBACTAM 3.375 GM in SODIUM CHLORIDE 0.9% 100 ML IVPB SCH (20:17)
[2021-03-25] MEDS ORDERED: AZITHROMYCIN 500 MG TAB PO SCH (21:00)
[2021-03-25] MEDS: BUDESONIDE 1 MG/2 ML NEBU INHALATION SCH (21:29)
[2021-03-25] MEDS: FORMOTEROL FUMARATE 20 MCG/2 ML NEBU INHALATION SCH (21:29)
--- NOTE | 2021-03-25 22:29 | P.HPIM ---
History of Present Illness H&P Date: 03/25/21 Chief Complaint: Altered mental status Patient is a 65-year-old male with a known history of chronic hypoxic respiratory failure secondary to COPD, fibromyalgia, GERD, degenerative disc disease and chronic back pain, MS, anxiety/depression, everyday smoking and dementia/memory impairment was brought to the hospital due to altered mental status. Apparently patient has been confused when talking to the family during the last 1 week. Family Vantin check on her and was found to be altered and lying in the bed. According to the family pulse ox was in the 50s at that time and blood sugar was 58 when EMS checked.. Patient has been afebrile. Does have without any sputum production.. Patient is confused and lethargic but able to open her eyes with verbal stimuli. Could not provide any history. Patient was placed on BiPAP in the ER. Chest x-ray showed there are some mild patchy interstitial infiltrates slightly increased compared to last exam. There is probably underlying COPD no obvious heart failure. On admission CT head showed mild cerebral atrophy. No acute intracranial abnormality. No change. EKG showed sinus rhythm with premature supraventricular complexes. Laboratory data showed WBC 17.7 hemoglobin 14.4 and platelets 297 MCV 105.0, neutrophils 16.2 ABGs on admission showed pH of 7.27 PCO2 79 PO2 290 Sodium 137 potassium 5.2 chloride 89 BUN 67 creatinine 2.62 and blood sugar was 30 on admission Total bilirubin level 1.7 AST 8923 ALT 3090, alk phos 313, INR 2.1 CK 702 Troponin 0 0.447, 0.333 and 0.296 Procalcitonin level is 0.57 Urinalysis showed cloudy with 2+ protein leukocyte esterase negative and nitrite negative WBC is 3. UDS is positive for opiates. Serum alcohol level is less than 10 Review of Systems Complete review of systems could not be obtained from the patient. 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 colonoscopy/polys benign, egd w/bx neg Past Anesthesia/Blood Transfusion Reactions: No Reported Reaction Past Psychological History: Anxiety, Depression Additional Psychological History / Comment(s): pt lives with boyfriend, is independent, no driving takes bus or family takes. has nebulizer Smoking Status: Current every day smoker Past Alcohol Use History: None Reported Additional Past Alcohol Use History / Comment(s): started smoking at age 18 smokes 2ppd Past Drug Use History: None Reported - Past Family History Mother Family Medical History: Cancer Additional Family Medical History / Comment(s): liver/pancreastic cancer Father Family Medical History: Cancer Additional Family Medical History / Comment(s): lung cancer Medications and Allergies Home Medications Medication Instructions Recorded Confirmed Type Hydrocodone/Acetaminophen 1 tab PO BID 09/03/13 03/24/21 History [Hydrocodone/Acetaminophen 10-325] Pregabalin [Lyrica] 150 mg PO TID 09/03/13 03/24/21 History Donepezil [Aricept] 10 mg PO DAILY 07/27/17 03/24/21 History Modafinil [Provigil] 100 mg PO BID 07/27/17 03/24/21 History Omeprazole [PriLOSEC] 20 mg PO AC-BID 07/27/17 03/24/21 History lamoTRIgine [LaMICtal] 25 mg PO HS 07/27/17 03/24/21 History Ipratropium-Albuterol Nebulize 3 ml INHALATION RT-QID 03/04/18 03/24/21 History [Duoneb 0.5 mg-3 mg/3 ml Soln] Albuterol Sulfate [Albuterol 2 puff PO RT-Q4H PRN 03/24/21 03/24/21 History Sulfate Hfa] Butalb/APAP/Caff 50-325-40Mg 1 tab PO Q8H PRN 03/24/21 03/24/21 History [Fioricet 50-325-40] Loperamide [Imodium] 2 mg PO TID PRN 03/24/21 03/24/21 History Memantine HCl 10 mg PO BID 03/24/21 03/24/21 History Morphine Sulfate [Ms Contin] 30 mg PO BID 03/24/21 03/24/21 History Naproxen 500 mg PO BID PRN 03/24/21 03/24/21 History Ondansetron HCl [Zofran] 2 mg PO Q6H PRN 03/24/21 03/24/21 History Allergies Allergy/AdvReac Type Severity Reaction Status Date / Time No Known Allergies Allergy Verified 03/24/21 19:15 Physical Exam Vitals: Vital Signs Temp Pulse Pulse Resp BP BP Pulse Ox 03/25/21 21:50 90 03/25/21 21:45 90 03/25/21 21:29 90 03/25/21 17:25 96 03/25/21 16:00 98.3 F 87 19 109/73 92 L 03/25/21 14:00 90 22 03/25/21 12:37 84 03/25/21 12:28 83 03/25/21 11:25 98.2 F 90 24 126/84 93 L 03/25/21 08:10 98.4 F 89 24 136/81 92 L 03/25/21 08:00 90 24 03/25/21 07:30 87 18 121/72 90 L 03/25/21 06:00 96 18 118/80 88 L 03/25/21 04:20 78 18 104/68 92 L 03/25/21 03:00 77 18 101/61 90 L 03/25/21 01:44 73 18 92/67 89 L 03/25/21 00:32 77 18 92/61 90 L 03/24/21 23:28 74 18 99/67 93 L 03/24/21 22:12 85 18 94/63 97 03/24/21 22:07 86 Intake and Output 03/25/21 03/25/21 03/25/21 06:59 14:59 22:59 Output Total 200 Balance -200 Output: Urine 200 Other: Voiding Method Bedpan Weight 33.339 kg PHYSICAL EXAMINATION: Patient is currently lying in the bed. Lethargic and drowsy and could not communicate. On BiPAP now.. HEENT: Normocephalic. Neck is supple. Pupils reactive. Nostrils clear. Oral cavity is moist. Neck reveals no JVD, carotid bruits, or thyromegaly. CHEST EXAMINATION: Trachea is central. Symmetrical expansion.Bilateral diminished air entry and mild expiratory wheeze. Nonlabored breathing.. CARDIAC: Normal S1, S2 with no gallops. No murmurs ABDOMEN: Soft. Bowel sounds normal. No organomegaly. No abdominal bruits. Extremities: reveal no edema. No clubbing or cyanosis Neurologically Patient is lethargic weak and unable to follow commands. No gross focal neurological deficit. Skin: No rash or skin lesions. Psychiatric: Could not be assessed completely. Musculoskeletal: No joint swelling or deformity. Results CBC & Chem 7: 03/25/21 05:20 03/25/21 05:20 Labs: Abnormal Lab Results - Last 24 Hours (Table) 03/24/21 03/24/21 03/24/21 Range/Units 17:57 21:35 22:15 WBC (3.8-10.6) k/uL MCV (80.0-100.0) fL Neutrophils # (1.3-7.7) k/uL Lymphocytes # (1.0-4.8) k/uL Carbon Dioxide (22-30) mmol/L BUN (7-17) mg/dL Creatinine (0.52-1.04) mg/dL Glucose (74-99) mg/dL POC Glucose (mg/dL) 191 H (75-99) mg/dL Calcium (8.4-10.2) mg/dL AST (14-36) U/L ALT (4-34) U/L Alkaline Phosphatase (38-126) U/L Troponin I 0.333 H* (0.000-0.034) ng/mL Total Protein (6.3-8.2) g/dL Albumin (3.5-5.0) g/dL Procalcitonin 0.57 H (0.02-0.09) ng/mL 03/24/21 03/25/21 03/25/21 Range/Units 23:59 00:34 03:04 WBC (3.8-10.6) k/uL MCV (80.0-100.0) fL Neutrophils # (1.3-7.7) k/uL Lymphocytes # (1.0-4.8) k/uL Carbon Dioxide (22-30) mmol/L BUN (7-17) mg/dL Creatinine (0.52-1.04) mg/dL Glucose (74-99) mg/dL POC Glucose (mg/dL) 150 H 113 H (75-99) mg/dL Calcium (8.4-10.2) mg/dL AST (14-36) U/L ALT (4-34) U/L Alkaline Phosphatase (38-126) U/L Troponin I 0.296 H* (0.000-0.034) ng/mL Total Protein (6.3-8.2) g/dL Albumin (3.5-5.0) g/dL Procalcitonin (0.02-0.09) ng/mL 03/25/21 03/25/21 03/25/21 Range/Units 05:20 05:20 16:21 WBC 14.5 H (3.8-10.6) k/uL MCV 103.6 H (80.0-100.0) fL Neutrophils # 13.9 H (1.3-7.7) k/uL Lymphocytes # 0.2 L (1.0-4.8) k/uL Carbon Dioxide 38 H (22-30) mmol/L BUN 61 H (7-17) mg/dL Creatinine 1.37 H (0.52-1.04) mg/dL Glucose 105 H (74-99) mg/dL POC Glucose (mg/dL) 109 H (75-99) mg/dL Calcium 6.9 L (8.4-10.2) mg/dL AST 7423 H (14-36) U/L ALT 3311 H (4-34) U/L Alkaline Phosphatase 286 H (38-126) U/L Troponin I (0.000-0.034) ng/mL Total Protein 5.6 L (6.3-8.2) g/dL Albumin 2.9 L (3.5-5.0) g/dL Procalcitonin (0.02-0.09) ng/mL 03/25/21 Range/Units 19:31 WBC (3.8-10.6) k/uL MCV (80.0-100.0) fL Neutrophils # (1.3-7.7) k/uL Lymphocytes # (1.0-4.8) k/uL Carbon Dioxide (22-30) mmol/L BUN (7-17) mg/dL Creatinine (0.52-1.04) mg/dL Glucose (74-99) mg/dL POC Glucose (mg/dL) 100 H (75-99) mg/dL Calcium (8.4-10.2) mg/dL AST (14-36) U/L ALT (4-34) U/L Alkaline Phosphatase (38-126) U/L Troponin I (0.000-0.034) ng/mL Total Protein (6.3-8.2) g/dL Albumin (3.5-5.0) g/dL Procalcitonin (0.02-0.09) ng/mL Thrombosis Risk Factor Assmnt - Choose All That Apply Any of the Below Risk Factors Present?: Yes Each Factor Represents 1 point: Abnormal pulmonary function (COPD), Medical pt on bed rest, Sepsis (< 1month), Serious lung disease incl. pneumonia (< 1month) Other Risk Factors: No Other congenital or acquired thrombophilia - If yes, enter type in comment: No Thrombosis Risk Factor Assessment Total Risk Factor Score: 4 Thrombosis Risk Factor Assessment Level: Moderate Risk Assessment and Plan Assessment: Acute on chronic hypoxic respiratory failure requiring BiPAP secondary to COPD and pneumonia Acute COPD exacerbation Pneumonia possible aspiration Acute liver failure with elevated AST and ALT levels. Suspected opiate use with Tylenol Mild rhabdomyolysis Altered mental status possible metabolic encephalopathy patient was lying in the bed for few days until the family check in.. Hypoglycemia with BG 30 on admission resolved now. Elevated troponin level. Unlikely ACS. Fibromyalgia Multiple sclerosis Osteoarthritis During her dialysis Chronic back pain Chronic pain syndrome and opiate use GERD Anxiety/depression Currently everyday smoker DVT prophylaxis. Patient is auto anticoagulated with INR level 2.1 Plan: Patient is currently BiPAP. Will be continued on duo nebs, IV Solu-Medrol 40 mg every 8 hourly. Continue with antibiotics to cover aspiration pneumonia. She was given IV hydration and continue to monitor fluid status. Avoid narcotic pain medications. Serum acetaminophen level, hepatitis panel and ultrasound of the abdomen was ordered. UDS is positive for opiates. Continue to follow closely. Discussed with the family at bedside in detail. Patient's CODE STATUS is DNR/DNI. Time with Patient: Greater than 30
[2021-03-26] MEDS: methylPREDNISolone SOD SUCCI 40 MG/ML 1 ML VIAL IV SCH ×2 (01:23→09:06)
[2021-03-26] MEDS ORDERED: PANTOPRAZOLE 40 MG TABLET PO SCH (07:30)
[2021-03-26 08:58] LABS: Basophils % (A) 0 %; Eosinophils % (A) 0 %; HCT 44.7 % (34.0-46.0); Hypochromasia Marked; Lymphocytes # (A) 0.2 k/uL (1.0-4.8); Lymphocytes % (A) 1 %; MCH 32.6 pg (25.0-35.0); MCHC 31.3 g/dL (31.0-37.0); Macrocytosis Moderate; Mean Platelet Volume 8.7; Monocytes # (A) 0.5 k/uL (0-1.0); Monocytes % (A) 2 %; Neutrophils # (A) 18.4 k/uL (1.3-7.7); Neutrophils % (A) 96 %; Platelet Count 214 k/uL (150-450); RDW 14.9 % (11.5-15.5); WBC 19.1 k/uL (3.8-10.6)
[2021-03-26] MEDS ORDERED: PREGABALIN 75 MG CAP PO SCH (09:00)
[2021-03-26] MEDS ORDERED: HEPARIN SODIUM,PORCINE/PF 5,000 UNIT/0.5 ML SYRINGE SQ SCH (09:00)
[2021-03-26 09:03] LABS: Potassium 3.6 mmol/L (3.5-5.1)
[2021-03-26 09:05] LABS: Acetaminophen <10.0 ug/mL; African American GFR (CKD) >90 (>60 ml/min/1.73 sqM); Albumin 2.6 g/dL (3.5-5.0); Alkaline Phosphatase 322 U/L (38-126); Blood Urea Nitrogen 31 mg/dL (7-17); Calcium 7.8 mg/dL (8.4-10.2); Chloride 100 mmol/L (98-107); Glucose 136 mg/dL (74-99); Non-African American GFR(CKD) >90 (>60 ml/min/1.73 sqM); Sodium 150 mmol/L (137-145); Total Bilirubin 1.4 mg/dL (0.2-1.3); Total Protein 5.3 g/dL (6.3-8.2)
[2021-03-26] MEDS: PIPERACILLIN-TAZOBACTAM 3.375 GM in SODIUM CHLORIDE 0.9% 100 ML IVPB SCH (09:06)
[2021-03-26 09:13] LABS: Anion Gap 5 mmol/L
[2021-03-26] MEDS: MEMANTINE 5 MG TAB PO SCH (09:17)
[2021-03-26] MEDS: ASPIRIN 81 MG PO SCH (09:17)
[2021-03-26] MEDS: DONEPEZIL 10 MG TAB PO SCH (09:17)
[2021-03-26 09:20] LABS: Carbon Dioxide 45 mmol/L (22-30)
--- NOTE | 2021-03-26 09:20 | US ---
EXAMINATION TYPE: US liver DATE OF EXAM: 03/26/2021 COMPARISON: Ultrasound 01/26/2017 CLINICAL HISTORY: Elevated Liver enzymes. elevated liver enzymes EXAM MEASUREMENTS: Liver Length: 15.2 cm Gallbladder Wall: 0.2 cm CBD: 0.3 cm technical limitations, patient uncooperative, restless, constantly moving, refusing exam and pushin g technologists hand away Pancreas: Obscured by bowel gas Liver: appears wnl as visualized, no evident mass or dilated intra or extrahepatic biliary duct Gallbladder: sludge noted Evidence for sonographic Casillas's sign: no CBD: limited evaluation Right Kidney: unable to evaluate IMPRESSION: Exam is limited by patient's unwillingness to cooperate with exam. Suspect tumefactive sludge is present within the gallbladder, gallbladder is contracted.
[2021-03-26 09:21] LABS: ALT 2153 U/L (4-34)
[2021-03-26] MEDS: FORMOTEROL FUMARATE 20 MCG/2 ML NEBU INHALATION SCH (09:28)
[2021-03-26] MEDS: IPRATROPIUM-ALBUTEROL 3 ML NEB INHALATION SCH ×2 (09:28→12:20)
[2021-03-26] MEDS: BUDESONIDE 1 MG/2 ML NEBU INHALATION SCH (09:28)
[2021-03-26] MEDS ORDERED: DEXTROSE 5% IN WATER 1,000 ML IV ONE (09:42)
[2021-03-26] MEDS ORDERED: LORazepam 2 MG/ML INJ IV ONE (09:43)
[2021-03-26] MEDS ORDERED: HALOPERIDOL LACTATE 5 MG/ML 1 ML VIAL IM STA (09:43)
[2021-03-26] MEDS ORDERED: HALOPERIDOL LACTATE 5 MG/ML 1 ML VIAL IM PRN (09:45)
--- NOTE | 2021-03-26 09:52 | CDI ---
Documentation Clarification Form Date: 03/27/2021 09:36:35 AM From: Sybil Dykes CCS, CCDS Admit Date: 03/24/2021 07:52:00 PM Patient Name: hCelsey Torres Visit Number: [id number] Discharge Date: ATTENTION: The Clinical Documentation Specialists (CDI) and [facility] Coding Staff appreciate your assistance in clarifying documentation. Please respond to the clarification below the line at the bottom and electronically sign. The CDI & [facility] Coding staff will review the response and follow-up if needed. Please note: Queries are made part of the Legal Health Record. If you have any questions, please contact the author of this message via ITS. Dr. Leann Do: The patient is admitted with Acute on Chronic Hypoxic Respiratory Failure requiring BiPAP secondary to possible Aspiration Pneumonia and Acute COPD Exacerbation after being found lying in her bed for several days per family. Per the 03/24 ED Note: General appearance: cachectic. Per the Pulmonary Consult on 03/25, the patient is frail & ill looking. Per the Cardiology consult on 03/25: Frail Based on this information and the findings below, is there an additional diagnosis that is clinically appropriate for this patient? History/Risk Factors per the 03/25 H/P: COPD, Dementia, Fibromyalgia, GERD, Memory Impairment, Osteoarthritis, Emphysema, Irritable Bowel, Degenerative Disk Disease: neck & back, MS, Small aneurysm in right tenriism. Current smoker. Clinical Indicators: Presented to the ED via EMS on 03/24 with Altered mental status. Per the patient's family, has been lying in bed for several days, found to have low pulse ox and Blood Sugar of 58 per EMS, not responsive. Admitted with Respiratory Failure, Altered mental status, Hypoglycemia and Pneumonia. 03/24 Admission Nursing Assessment: Height 5 ft Weight 33.339 kg IBW: 100.00 lbs. Current BMI: 14.4 03/24 LAB: WBC 17.7, Hct 47.7, Neut 16.2, Lymph 0.4; K 5.2, Cl 89, BUN 67, Cr 2.62, GFR 19, Glucose 30, Calcium 7.5, Total Bili 1.7, AST 8923, ALT 3090, Alk Phos 313, Cr Kinase 702, Troponin 0.447, 0.296; total Protein 6.2, Albumin 3.6 Treatment 03/24: Accuchecks, Blood glucose monitoring, Telemetry, Blood & Sputum cultures, DNR, BiPAP, IV Dextrose 50 ml x1, INH Ventolin x1, IV Na Cl 999 mls/hr q31M, INH Duoneb q4H, IV Azithromycin x1, IV Rocephin x1, IV Na Cl 130 mls/hr q7H. 03/26: Oral Nutrition Supplement. Is there an additional diagnosis that is clinically appropriate for this patient? [ ] Mild Protein-Calorie Malnutrition [ ] Moderate Protein-Calorie Malnutrition [ x ] Severe Protein-Calorie Malnutrition [ ] Other condition, please specify [ ] Unable to Determine (Template Last Revised: May 2020) MTDD
--- NOTE | 2021-03-26 10:07 | CDI ---
Documentation Clarification Form Date: 03/26/2021 09:57:00 AM From: Sybil DykesNICO nava, CCDS Admit Date: 03/24/2021 07:52:00 PM Patient Name: Chelsey Torres Visit Number: [id number] Discharge Date: ATTENTION: The Clinical Documentation Specialists (CDI) and [facility] Coding Staff appreciate your assistance in clarifying documentation. Please respond to the clarification below the line at the bottom and electronically sign. The CDI & [facility] Coding staff will review the response and follow-up if needed. Please note: Queries are made part of the Legal Health Record. If you have any questions, please contact the author of this message via ITS. Dr. Leann Do: Per the 03/24 ED Note, the patient is admitted with Respiratory Failure, Altered Mental Status, Hypoglycemia, Pneumonia and Sepsis. Sepsis is not further documented in the record. Additional clarification regarding the etiology/cause of the clinical indicators is requested. 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 Current smoker. Clinical Indicators: Presented to the ED via EMS on 03/24 with Altered mental status. Per the patient's family, has been lying in bed for several days, found to have low pulse ox and Blood Sugar of 58 per EMS, not responsive. Admitted with Respiratory Failure, Altered mental status, Hypoglycemia and Pneumonia. 03/24 VS: T 98.1, P 97, R 26 (SOB, Accessory use, Retractive, Tachypnea), BP 112/87, 90/61; PO 97 15L nrb - 40% BiPAP. 03/24 LAB: WBC 17.7, Hct 47.7, Neut 16.2, Lymph 0.4; K 5.2; PT 20.2, INR 2.1; K 5.2, Cl 89, BUN 67, Cr 2.62, GFR 19, Glucose 30, Calcium 7.5, Total Bili 1.7, AST 8923, ALT 3090, Alk Phos 313, Cr Kinase 702, Troponin 0.447, 0.296; total Protein 6.2, Albumin 3.6 03/24 ABG pH: pH 7.27, pCO2 70, pO2 290, HCO3 32, total CO2 34, O2 Sat 99.6 03/24 CXR: There are some mild patchy interstitial infiltrates slightly increased compared to last exam. There is probably underlying COPD. No obvious heart failure. Treatment 03/24: Accuchecks, Blood glucose monitoring, Telemetry, Blood & Sputum cultures, DNR, BiPAP, IV Dextrose 50 ml x1, INH Ventolin x1, IV Na Cl 999 mls/hr q31M, INH Duoneb q4H, IV Azithromycin x1, IV Rocephin x1, IV Na Cl 130 mls/hr q7H. 03/26: Oral Nutrition Supplement. In your professional opinion, please clarify if these findings signify one of the following conditions: [ x ] Sepsis POA [ ] Sepsis, Not POA [ ] Sepsis ruled out [ ] Severe Sepsis with organ failure [ ] Septic Shock [ ] Other, please specify [ ] Unable to determine (Template Last Reviewed: April 2020) JAIME
[2021-03-26 10:11] LABS: AST 2250 U/L (14-36)
[2021-03-26 12:22] LABS: Hepatitis A Antibody IgM Nonreactive (Nonreactive); Hepatitis B Core IgM Nonreactive (Nonreactive); Hepatitis B Surface Antigen Nonreactive (Nonreactive); Hepatitis C IgG Antibody Nonreactive (Nonreactive)
[2021-03-26 13:19] VITALS: BP 120/85; PULSE 80; RESP 23; TEMP 97.6
--- NOTE | 2021-03-26 14:48 | PN ---
PROGRESS NOTE This is a 65-year-old female that I saw yesterday in consultation. My impression was that she had end-stage COPD, and acute hypoxemic and hypercapnic respiratory failure, complicated by pneumonia. The patient also was found to have acute liver failure, ongoing tobacco use with nicotine addiction, severe dementia, fibromyalgia, GERD, osteoarthritis, and DJD. When I saw her this morning, she was on BiPAP at 12/6 and 50%. Her saturations were 88%. She was getting dextrose at 50 mL an hour. The patient was a do not resuscitate patient. The family was considering either palliative care or hospice care. When I saw her, no decision had yet been made. PHYSICAL EXAMINATION: Current vital signs are reviewed. Her heart rate was 84, temperature was 98.2, blood pressure 126/84, respiratory rate was 24, saturations 88%. She appeared in no acute distress. She was very lethargic and somnolent. She could barely arouse. Her mental status was worse today than it was yesterday. HEENT: Examination is grossly unremarkable. BiPAP mask in place. NECK: Supple. No adenopathy. CARDIOVASCULAR: Examination reveals regular rhythm rate. Heart rate 84 beats per minute. LUNGS: Reveal diffuse coarse rhonchi throughout. Some mild expiratory wheezes are noted. There are some crackles throughout. ABDOMEN: Soft. No bowel sounds. EXTREMITIES are intact. No cyanosis, clubbing, or edema. SKIN: Without rash. NEUROLOGIC: Examination could not be adequately assessed as the patient is very poorly responsive. Labs, x-rays and medications are all reviewed. ASSESSMENT: 1. Acute hypoxemic and hypercapnic respiratory failure secondary to severe COPD exacerbation and complicated by pneumonia, right greater than left, which may relate to aspiration. 2. Acute liver failure. 3. History of ongoing tobacco use and nicotine addiction. 4. Chronic hypoxemic respiratory failure. 5. History of severe dementia. 6. History of fibromyalgia. 7. History of gastroesophageal reflux disease. 8. History of osteoarthritis. 9. History of degenerative disk disease. PLAN: The patient's family members are in the room. Apparently they are considering palliative care or hospice. That would be a good idea. The patient is unresponsive or poorly responsive. She remains on BiPAP. Saturations are 88%. She is a do not resuscitate patient. No additional recommendations are made. MMODL / IJN: [id number] /
[2021-03-26] MEDS ORDERED: PIPERACILLIN-TAZOBACTAM 3.375 GM in SODIUM CHLORIDE 0.9% 100 ML IVPB SCH (17:00)
[2021-03-26 17:32] LABS: Vitamin B12 >2000.0 pg/mL (200.0-944.0)
[2021-03-26] MEDS ORDERED: lamoTRIgine 25 MG TAB PO SCH (21:00)
--- NOTE | 2021-03-26 23:14 | P.PN ---
Subjective Progress Note Date: 03/26/21 Patient is a 65-year-old male with a known history of chronic hypoxic respiratory failure secondary to COPD, fibromyalgia, GERD, degenerative disc disease and chronic back pain, MS, anxiety/depression, everyday smoking and dementia/memory impairment was brought to the hospital due to altered mental status. Apparently patient has been confused when talking to the family during the last 1 week. Family Vantin check on her and was found to be altered and lying in the bed. According to the family pulse ox was in the 50s at that time and blood sugar was 58 when EMS checked.. Patient has been afebrile. Does have without any sputum production.. Patient is confused and lethargic but able to open her eyes with verbal stimuli. Could not provide any history. Patient was placed on BiPAP in the ER. Chest x-ray showed there are some mild patchy interstitial infiltrates slightly increased compared to last exam. There is probably underlying COPD no obvious heart failure. On admission CT head showed mild cerebral atrophy. No acute intracranial abnormality. No change. EKG showed sinus rhythm with premature supraventricular complexes. Laboratory data showed WBC 17.7 hemoglobin 14.4 and platelets 297 MCV 105.0, neutrophils 16.2 ABGs on admission showed pH of 7.27 PCO2 79 PO2 290 Sodium 137 potassium 5.2 chloride 89 BUN 67 creatinine 2.62 and blood sugar was 30 on admission Total bilirubin level 1.7 AST 8923 ALT 3090, alk phos 313, INR 2.1 CK 702 Troponin 0 0.447, 0.333 and 0.296 Procalcitonin level is 0.57 Urinalysis showed cloudy with 2+ protein leukocyte esterase negative and nitrite negative WBC is 3. UDS is positive for opiates. Serum alcohol level is less than 10 03/26/2021 Patient is currently lying in the bed. Confused and altered. Unable to follow commands. Remains on BiPAP. Patient is not able to tolerate BiPAP and pulling out the tubes. Was given a dose of Ativan 0.5 mg. Patient has been afebrile. Not able to wake up. Unable to eat. Lab data showed WC 19.1 hemoglobin 14.0 and platelets 214 Sodium 150 potassium 3.6 chloride 100 bicarb is 45 BUN 31 creatinine 0.64 Patient was started on D5 water at 50 cc/h and monitor respiratory status closely. Other laboratory showed bilirubin 1.4 AST 20-50 ALT 2153 and alk phos 322. Trending down. Ammonia level is 20 Acetaminophen level is less than 10 and hepatitis panel nonreactive. Due to multiple medical problems and acute respiratory failure discussed with family regarding her treatment goals. Family decided to go for comfort care at this time. Hospice care was consulted. Current medications reviewed. Objective - Vital Signs Vital signs: Vital Signs Temp 98.1 F 03/26/21 08:00 Pulse 76 03/26/21 08:00 Resp 19 03/26/21 08:00 BP 134/87 03/26/21 08:00 Pulse Ox 96 03/26/21 08:00 Intake & Output 03/25/21 03/26/21 03/26/21 18:59 06:59 18:59 Intake Total 10 Output Total 200 Balance -200 10 Weight 33.339 kg Intake: IV 10 Invasive Line 1 10 Output: Urine 200 Other: Voiding Method Bedpan Bedpan Bedpan Diaper Diaper # Voids 2 # Bowel Movements 1 - Exam PHYSICAL EXAMINATION: Patient is currently lying in the bed. Lethargic and drowsy and could not communicate. On BiPAP now.. HEENT: Normocephalic. Neck is supple. Pupils reactive. Nostrils clear. Oral cavity is moist. Neck reveals no JVD, carotid bruits, or thyromegaly. CHEST EXAMINATION: Trachea is central. Symmetrical expansion.Bilateral diminished air entry and mild expiratory wheeze. Nonlabored breathing.. CARDIAC: Normal S1, S2 with no gallops. No murmurs ABDOMEN: Soft. Bowel sounds present. No organomegaly. No abdominal bruits. Extremities: reveal no edema. No clubbing or cyanosis Neurologically Patient is lethargic weak and unable to follow commands. No gross focal neurological deficit. Skin: No rash or skin lesions. Psychiatric: Could not be assessed completely. Musculoskeletal: No joint swelling or deformity. - Labs CBC & Chem 7: 03/26/21 08:29 03/26/21 08:29 Labs: Abnormal Lab Results - Last 24 Hours (Table) 03/24/21 03/25/21 03/25/21 Range/Units 20:30 16:21 19:31 WBC (3.8-10.6) k/uL MCV (80.0-100.0) fL Neutrophils # (1.3-7.7) k/uL Lymphocytes # (1.0-4.8) k/uL Sodium (137-145) mmol/L Carbon Dioxide (22-30) mmol/L BUN (7-17) mg/dL Glucose (74-99) mg/dL POC Glucose (mg/dL) 109 H 100 H (75-99) mg/dL Calcium (8.4-10.2) mg/dL Total Bilirubin (0.2-1.3) mg/dL AST (14-36) U/L ALT (4-34) U/L Alkaline Phosphatase (38-126) U/L Total Protein (6.3-8.2) g/dL Albumin (3.5-5.0) g/dL Lamotrigine 0.3 L (2.0-15.0) ug/mL 03/26/21 03/26/21 Range/Units 08:29 08:29 WBC 19.1 H (3.8-10.6) k/uL MCV 104.0 H (80.0-100.0) fL Neutrophils # 18.4 H (1.3-7.7) k/uL Lymphocytes # 0.2 L (1.0-4.8) k/uL Sodium 150 H (137-145) mmol/L Carbon Dioxide 45 H* (22-30) mmol/L BUN 31 H (7-17) mg/dL Glucose 136 H (74-99) mg/dL POC Glucose (mg/dL) (75-99) mg/dL Calcium 7.8 L (8.4-10.2) mg/dL Total Bilirubin 1.4 H (0.2-1.3) mg/dL AST 2250 H (14-36) U/L ALT 2153 H (4-34) U/L Alkaline Phosphatase 322 H (38-126) U/L Total Protein 5.3 L (6.3-8.2) g/dL Albumin 2.6 L (3.5-5.0) g/dL Lamotrigine (2.0-15.0) ug/mL Microbiology - Last 24 Hours (Table) 03/24/21 20:54 Blood Culture - Preliminary Blood No Growth after 24 hours 03/24/21 20:30 Blood Culture - Preliminary Blood No Growth after 24 hours Assessment and Plan Assessment: Acute on chronic hypoxic respiratory failure requiring BiPAP secondary to COPD and pneumonia Acute COPD exacerbation Pneumonia possible aspiration Acute liver failure with elevated AST and ALT levels. Suspected opiate use with Tylenol Mild rhabdomyolysis Altered mental status possible metabolic encephalopathy patient was lying in the bed for few days until the family check in.. Hypoglycemia with BG 30 on admission resolved now. Elevated troponin level. Unlikely ACS. Fibromyalgia Multiple sclerosis Osteoarthritis During her dialysis Chronic back pain Chronic pain syndrome and opiate use GERD Anxiety/depression Currently everyday smoker DVT prophylaxis. Patient is auto anticoagulated with INR level 2.1 Plan: Patient is currently BiPAP. Will be continued on duo nebs, IV Solu-Medrol 40 mg every 8 hourly. Continue with antibiotics to cover aspiration pneumonia. She was given IV hydration with D5W and continue to monitor fluid status. Avoid narcotic pain medications. Serum acetaminophen level, hepatitis panel and ultrasound of the abdomen was done. UDS is positive for opiates. Continue to follow closely. Discussed with the family at bedside in detail. Patient's CODE STATUS is DN R/DNI---> comfort care as per family request. Time with Patient: Greater than 30
--- NOTE | 2021-03-26 23:16 | P.DS ---
Providers Date of admission: 03/24/21 19:52 Expected date of discharge: 03/26/21 Attending physician: Clifton Adkins Consults: 03/24/21 19:53 Consult Physician Urgent Consulting Provider: Eric Leung Reason/Comments: resp failure on bipap Do you want consulting provider notified?: Yes Primary care physician: [facility] Course: Discharge diagnosis Acute on chronic hypoxic respiratory failure requiring BiPAP secondary to COPD and pneumonia Acute COPD exacerbation Pneumonia possible aspiration Acute liver failure with elevated AST and ALT levels. serum Tylenol level <10 Mild rhabdomyolysis Altered mental status possible metabolic encephalopathy patient was lying in the bed for few days until the family check in.. Hypoglycemia with BG 30 on admission resolved now. Elevated troponin level. Unlikely ACS. Hypernatremia Fibromyalgia Multiple sclerosis Osteoarthritis During her dialysis Chronic back pain Chronic pain syndrome and opiate use GERD Anxiety/depression Currently everyday smoker DVT prophylaxis. Patient is auto anticoagulated with INR level 2.1 Hospital course Patient is a 65-year-old male with a known history of chronic hypoxic respiratory failure secondary to COPD, fibromyalgia, GERD, degenerative disc disease and chronic back pain, MS, anxiety/depression, everyday smoking and dementia/memory impairment was brought to the hospital due to altered mental status. Apparently patient has been confused when talking to the family during the last 1 week. Family Vantin check on her and was found to be altered and lying in the bed. According to the family pulse ox was in the 50s at that time and blood sugar was 58 when EMS checked.. Patient has been afebrile. Does have without any sputum production.. Patient is confused and lethargic but able to open her eyes with verbal stimuli. Could not provide any history. Patient was placed on BiPAP in the ER. Chest x-ray showed there are some mild patchy interstitial infiltrates slightly increased compared to last exam. There is probably underlying COPD no obvious heart failure. On admission CT head showed mild cerebral atrophy. No acute intracranial abnormality. No change. EKG showed sinus rhythm with premature supraventricular complexes. Laboratory data showed WBC 17.7 hemoglobin 14.4 and platelets 297 MCV 105.0, neutrophils 16.2 ABGs on admission showed pH of 7.27 PCO2 79 PO2 290 Sodium 137 potassium 5.2 chloride 89 BUN 67 creatinine 2.62 and blood sugar was 30 on admission Total bilirubin level 1.7 AST 8923 ALT 3090, alk phos 313, INR 2.1 CK 702 Troponin 0 0.447, 0.333 and 0.296 Procalcitonin level is 0.57 Urinalysis showed cloudy with 2+ protein leukocyte esterase negative and nitrite negative WBC is 3. UDS is positive for opiates. Serum alcohol level is less than 10 03/26/2021 Patient is currently lying in the bed. Confused and altered. Unable to follow commands. Remains on BiPAP. Patient is not able to tolerate BiPAP and pulling out the tubes. Was given a dose of Ativan 0.5 mg. Patient has been afebrile. Not able to wake up. Unable to eat. Lab data showed WC 19.1 hemoglobin 14.0 and platelets 214 Sodium 150 potassium 3.6 chloride 100 bicarb is 45 BUN 31 creatinine 0.64 Patient was started on D5 water at 50 cc/h and monitor respiratory status closely. Other laboratory showed bilirubin 1.4 AST 20-50 ALT 2153 and alk phos 322. Derrell nding down. Ammonia level is 20 Acetaminophen level is less than 10 and hepatitis panel nonreactive. Due to multiple medical problems and acute respiratory failure discssed with family regarding her treatment goals. Family decided to go for comfort care at this time. Hospice care was consulted. Discharge physical examination was done in vitals reviewed. Patient Condition at Discharge: Poor Plan - Discharge Summary Discharge Rx Participant: No New Discharge Prescriptions: No Action Pregabalin [Lyrica] 150 mg PO TID Hydrocodone/Acetaminophen [Hydrocodone/Acetaminophen 10-325] 1 tab PO BID Omeprazole [PriLOSEC] 20 mg PO AC-BID Modafinil [Provigil] 100 mg PO BID lamoTRIgine [LaMICtal] 25 mg PO HS Donepezil [Aricept] 10 mg PO DAILY Ipratropium-Albuterol Nebulize [Duoneb 0.5 mg-3 mg/3 ml Soln] 3 ml INHALATION RT-QID Memantine HCl 10 mg PO BID Albuterol Sulfate [Albuterol Sulfate Hfa] 2 puff PO RT-Q4H PRN PRN Reason: Shortness Of Breath Ondansetron HCl [Zofran] 2 mg PO Q6H PRN PRN Reason: Nausea And Vomiting Loperamide [Imodium] 2 mg PO TID PRN PRN Reason: Diarrhea Morphine Sulfate [Ms Contin] 30 mg PO BID Butalb/APAP/Caff 50-325-40Mg [Fioricet 50-325-40] 1 tab PO Q8H PRN PRN Reason: Migraine Headache Naproxen 500 mg PO BID PRN PRN Reason: Pain Discharge Medication List Hydrocodone/Acetaminophen [Hydrocodone/Acetaminophen 10-325] 1 tab PO BID 09/03/13 [History] Pregabalin [Lyrica] 150 mg PO TID 09/03/13 [History] Donepezil [Aricept] 10 mg PO DAILY 07/27/17 [History] Modafinil [Provigil] 100 mg PO BID 07/27/17 [History] Omeprazole [PriLOSEC] 20 mg PO AC-BID 07/27/17 [History] lamoTRIgine [LaMICtal] 25 mg PO HS 07/27/17 [History] Ipratropium-Albuterol Nebulize [Duoneb 0.5 mg-3 mg/3 ml Soln] 3 ml INHALATION RT-QID 03/04/18 [History] Albuterol Sulfate [Albuterol Sulfate Hfa] 2 puff PO RT-Q4H PRN 03/24/21 [History] Butalb/APAP/Caff 50-325-40Mg [Fioricet 50-325-40] 1 tab PO Q8H PRN 03/24/21 [History] Loperamide [Imodium] 2 mg PO TID PRN 03/24/21 [History] Memantine HCl 10 mg PO BID 03/24/21 [History] Morphine Sulfate [Ms Contin] 30 mg PO BID 03/24/21 [History] Naproxen 500 mg PO BID PRN 03/24/21 [History] Ondansetron HCl [Zofran] 2 mg PO Q6H PRN 03/24/21 [History] Follow up Appointment(s)/Referral(s): Jonathan Natarajan DO [Primary Care Provider] - 1-2 days Discharge Disposition: [facility]CH TO [facility]
== END 2021-03-26 13:55 | disposition hospice, inpatient (51) | DRG 871 ==
LOC: EC 17:50 → 3SCARD 19:52
PROVIDERS: ADMIT Hospitalist; ATTEND Hospitalist
PROC: 5A09457 Assistance with Respiratory Ventilation, 24-96 Consecutive Hours, Continuous Positive Airway Pressure (ICD-10-PCS; principal; 2021-03-24)
DX: A41.9 Sepsis, unspecified organism (principal); J69.0 Pneumonitis due to inhalation of food and vomit; J96.22 Acute and chronic respiratory failure with hypercapnia; J96.21 Acute and chronic respiratory failure with hypoxia; K72.00 Acute and subacute hepatic failure without coma; G93.41 Metabolic encephalopathy; E43 Unspecified severe protein-calorie malnutrition; N17.9 Acute kidney failure, unspecified; M62.82 Rhabdomyolysis; E87.0 Hyperosmolality and hypernatremia; Z68.1 Body mass index [BMI] 19.9 or less, adult; F03.90 Unspecified dementia, unspecified severity, without behavioral disturbance, psychotic disturbance, mood disturbance, and anxiety; J43.9 Emphysema, unspecified; G35 Multiple sclerosis; Z66 Do not resuscitate; Z51.5 Encounter for palliative care; Z20.822 Contact with and (suspected) exposure to COVID-19; I67.1 Cerebral aneurysm, nonruptured; E16.2 Hypoglycemia, unspecified; M79.7 Fibromyalgia; G89.4 Chronic pain syndrome; M54.9 Dorsalgia, unspecified; F41.9 Anxiety disorder, unspecified; I49.1 Atrial premature depolarization; I08.1 Rheumatic disorders of both mitral and tricuspid valves; F32.A Depression, unspecified; F17.210 Nicotine dependence, cigarettes, uncomplicated; K21.9 Gastro-esophageal reflux disease without esophagitis; K58.9 Irritable bowel syndrome, unspecified; R77.8 Other specified abnormalities of plasma proteins; M19.90 Unspecified osteoarthritis, unspecified site; Z79.891 Long term (current) use of opiate analgesic; Z79.899 Other long term (current) drug therapy; Z98.51 Tubal ligation status; Z87.19 Personal history of other diseases of the digestive system; Z87.39 Personal history of other diseases of the musculoskeletal system and connective tissue; Z98.890 Other specified postprocedural states; Z71.3 Dietary counseling and surveillance; Z80.1 Family history of malignant neoplasm of trachea, bronchus and lung; Z80.0 Family history of malignant neoplasm of digestive organs
CPT/HCPCS: 36415; 36600; 70450; 71045; 76705; 80053; 80061; 80074; 80143; 80175; 80306; 80320; 81001; 82140; 82150; 82550; 82607; 82747; 82805; 83605; 83690; 84145; 84484; 85025; 85610; 85730; 87040; 87635; 93005; 93306; 94640; 94660; 94760; 96374; 99291

== ENCOUNTER 2021-03-26 13:47 | Inpatient (IN) | payer MEDICAID ==
[2021-03-26] MEDS ORDERED: HALOPERIDOL LACTATE 5 MG/ML 1 ML VIAL IM PRN (13:49)
[2021-03-26] MEDS ORDERED: MORPHINE SULFATE 2 MG/ML SYRINGE IV PRN (13:49)
[2021-03-26] MEDS ORDERED: LORazepam 2 MG/ML INJ IV PRN (13:49)
[2021-03-26] MEDS ORDERED: ACETAMINOPHEN SUPPOSITORY 650 MG SUPP RECTAL PRN (13:49)
[2021-03-26] MEDS ORDERED: ONDANSETRON 4 MG/2 ML VIAL IVP PRN (13:49)
[2021-03-26] MEDS ORDERED: GLYCOPYRROLATE 0.2 MG/ML 2 ML VIAL IVP PRN (13:49)
[2021-03-26] MEDS ORDERED: HYOSCYAMINE ORAL DROPS 1.875 MG/15 ML BOTTLE PO PRN (13:51)
[2021-03-26] MEDS ORDERED: SCOPOLAMINE 1.5MG/72HR PATCH TRANSDERM SCH (14:00)
[2021-03-26] MEDS: MORPHINE SULFATE (100 MG/2 ML) 100 MG in SODIUM CHLORIDE 0.9% 100 ML IV SCH (14:54)
[2021-03-26] MEDS: ATROPINE OPHTH SOLN 1% 5ML BTL SUBLINGUAL PRN (22:55)
[2021-03-27] MEDS: MORPHINE SULFATE (100 MG/2 ML) 100 MG in SODIUM CHLORIDE 0.9% 100 ML IV SCH ×3 (03:33→20:29)
[2021-03-27] MEDS: ATROPINE OPHTH SOLN 1% 5ML BTL SUBLINGUAL PRN (06:08)
[2021-03-27 14:31] VITALS: BMI 14.2
--- NOTE | 2021-03-27 18:13 | P.HPIM ---
History of Present Illness H&P Date: 03/27/21 Chief Complaint: Comfort care 65-year-old male with a known history of chronic hypoxic respiratory failure secondary to COPD, fibromyalgia, GERD, degenerative disc disease and chronic back pain, MS, anxiety/depression, everyday smoking and dementia/memory impairment was brought to the hospital due to altered mental status. Apparently patient has been confused when talking to the family during the last 1 week. Family Vantin check on her and was found to be altered and lying in the bed. According to the family pulse ox was in the 50s at that time and blood sugar was 58 when EMS checked.. Patient has been afebrile. Does have without any sputum production.. Patient is confused and lethargic but able to open her eyes with verbal stimuli. Could not provide any history. Patient was placed on BiPAP in the ER. Chest x-ray showed there are some mild patchy interstitial infiltrates slightly increased compared to last exam. There is probably underlying COPD no obvious heart failure. Patient's respiratory status continued to deteriorate despite treatment; was jean ble to be weaned off BiPAP Due to multiple medical problems and acute respiratory failure discssed with family regarding her treatment goals. Family decided to go for comfort care at this time. Hospice care was consulted. 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 colonoscopy/polys benign, egd w/bx neg Past Anesthesia/Blood Transfusion Reactions: No Reported Reaction Past Psychological History: Anxiety, Depression Additional Psychological History / Comment(s): pt lives with boyfriend, is independent, no driving takes bus or family takes. has nebulizer Smoking Status: Current every day smoker Past Alcohol Use History: None Reported Additional Past Alcohol Use History / Comment(s): started smoking at age 18 smokes 2ppd Past Drug Use History: None Reported - Past Family History Mother Family Medical History: Cancer Additional Family Medical History / Comment(s): liver/pancreastic cancer Father Family Medical History: Cancer Additional Family Medical History / Comment(s): lung cancer Medications and Allergies Home Medications Medication Instructions Recorded Confirmed Type Hydrocodone/Acetaminophen 1 tab PO BID 09/03/13 03/26/21 History [Hydrocodone/Acetaminophen 10-325] Pregabalin [Lyrica] 150 mg PO TID 09/03/13 03/26/21 History Donepezil [Aricept] 10 mg PO DAILY 07/27/17 03/26/21 History Modafinil [Provigil] 100 mg PO BID 07/27/17 03/26/21 History Omeprazole [PriLOSEC] 20 mg PO AC-BID 07/27/17 03/26/21 History lamoTRIgine [LaMICtal] 25 mg PO HS 07/27/17 03/26/21 History Ipratropium-Albuterol Nebulize 3 ml INHALATION RT-QID 03/04/18 03/26/21 History [Duoneb 0.5 mg-3 mg/3 ml Soln] Albuterol Sulfate [Albuterol 2 puff PO RT-Q4H PRN 03/24/21 03/26/21 History Sulfate Hfa] Butalb/APAP/Caff 50-325-40Mg 1 tab PO Q8H PRN 03/24/21 03/26/21 History [Fioricet 50-325-40] Loperamide [Imodium] 2 mg PO TID PRN 03/24/21 03/26/21 History Memantine HCl 10 mg PO BID 03/24/21 03/26/21 History Morphine Sulfate [Ms Contin] 30 mg PO BID 03/24/21 03/26/21 History Naproxen 500 mg PO BID PRN 03/24/21 03/26/21 History Ondansetron HCl [Zofran] 2 mg PO Q6H PRN 03/24/21 03/26/21 History Allergies Allergy/AdvReac Type Severity Reaction Status Date / Time No Known Allergies Allergy Verified 03/26/21 14:54 Physical Exam Vitals: Vital Signs Temp Pulse Resp 03/27/21 08:00 89 9 L 03/27/21 06:04 9 L 03/27/21 01:30 84 10 L 03/27/21 00:00 98.2 F 80 12 03/26/21 19:41 98.1 F 16 03/26/21 16:30 19 03/26/21 15:20 94 23 Intake and Output 03/26/21 03/27/21 03/27/21 22:59 06:59 14:59 Intake Total 24.412 88.281 39.967 Output Total 360 260 Balance -335.588 -171.719 39.967 Intake: Intake, IV Titration 24.412 88.281 39.967 Amount Morphine Sulfate (100 mg/ 24.412 88.281 39.967 2 ml) 100 mg In Sodium Chloride 0.9% 100 ml @ 1 MG/HR 1.02 mls/hr IV . Q24H [facility] Rx#:[id number] Output: Urine 360 260 Uretheral (Lopez) 260 Other: Voiding Method Indwelling Catheter Indwelling Catheter Indwelling Catheter General appearance: no acute distress; looks comfortable Eyes: PERRLA, normal appearance Neck: Present: normal ROM Carotids: negative: bruit present Respiratory: bilateral: Decreased breath sounds Cardiovascular; Rhythm: regular General gastrointestinal: Present: normal bowel sounds, soft. Absent: distended, organomegaly, tenderness Integumentary: Present: normal turgor. Absent: jaundiced, rash, ulcer Neurologic: Does not respond to any verbal stimulation Musculoskeletal: Moves extremities spontaneously Assessment and Plan Assessment: Acute on chronic hypoxic respiratory failure requiring BiPAP secondary to COPD and pneumonia Acute COPD exacerbation Pneumonia possible aspiration Acute liver failure with elevated AST and ALT levels. Suspected opiate use with Tylenol Mild rhabdomyolysis Altered mental status possible metabolic encephalopathy patient was lying in the bed for few days until the family check in.. Hypoglycemia with BG 30 on admission resolved now. Elevated troponin level. Unlikely ACS. Fibromyalgia Multiple sclerosis Osteoarthritis During her dialysis Chronic back pain Chronic pain syndrome and opiate use GERD Anxiety/depression Currently everyday smoker DVT prophylaxis. Patient is auto anticoagulated with INR level 2.1 Plan: Patient is currently BiPAP. Will be continued on duo nebs, IV Solu-Medrol 40 mg every 8 hourly. Continue with antibiotics to cover aspiration pneumonia. She was given IV hydration with D5W and continue to monitor fluid status. Avoid narcotic pain medications. Serum acetaminophen level, hepatitis panel and ultrasound of the abdomen was done. UDS is positive for opiates. Continue to follow closely. Discussed with the family at bedside in detail. Patient's CODE STATUS is DNR/DNI---> comfort care as per family request.
[2021-03-28] MEDS: MORPHINE SULFATE (100 MG/2 ML) 100 MG in SODIUM CHLORIDE 0.9% 100 ML IV SCH (04:17)
[2021-03-28 04:37] VITALS: TEMP 103
[2021-03-28 08:24] VITALS: RESP 12
[2021-03-28 11:00] VITALS: PULSE 0
== END 2021-03-28 15:19 | disposition expired | DRG 951 ==
LOC: 3SCARD 13:58
PROVIDERS: ADMIT Internal Medicine; ATTEND Internal Medicine
PROC: 5A09357 Assistance with Respiratory Ventilation, Less than 24 Consecutive Hours, Continuous Positive Airway Pressure (ICD-10-PCS; principal; 2021-03-26)
PROC: 5A0935A Assistance with Respiratory Ventilation, Less than 24 Consecutive Hours, High Flow/Velocity Cannula (ICD-10-PCS; 2021-03-26)
DX: Z51.5 Encounter for palliative care (principal); J69.0 Pneumonitis due to inhalation of food and vomit; J96.21 Acute and chronic respiratory failure with hypoxia; E16.2 Hypoglycemia, unspecified; F03.90 Unspecified dementia, unspecified severity, without behavioral disturbance, psychotic disturbance, mood disturbance, and anxiety; F17.200 Nicotine dependence, unspecified, uncomplicated; F32.A Depression, unspecified; F41.9 Anxiety disorder, unspecified; G35 Multiple sclerosis; G89.4 Chronic pain syndrome; J43.9 Emphysema, unspecified; K21.9 Gastro-esophageal reflux disease without esophagitis; M19.90 Unspecified osteoarthritis, unspecified site; M79.7 Fibromyalgia; Z66 Do not resuscitate; Z79.899 Other long term (current) drug therapy; Z80.1 Family history of malignant neoplasm of trachea, bronchus and lung